=== PATIENT | male | born 1940 | race Caucasian/White ===

== ENCOUNTER → 2016-12-19 | Outpatient (CLI) | payer MEDICARE, OTHER | LOC: RAD 08:46 | PROVIDERS: ATTEND Internal Medicine | DX: C20 Malignant neoplasm of rectum (principal) | CPT/HCPCS: 71260; 74177 ==

== ENCOUNTER 2017-05-11 15:30 | Emergency (ER) | payer MEDICARE, OTHER ==
--- NOTE | 2017-05-11 17:26 | ER Document Report ---
ED GI Bleed / Rectal Pain - General Chief Complaint: Bloody Stools Stated Complaint: CHEST PAIN, WEAKNESS Time Seen by Provider: 05/11/17 17:11 Notes: The patient is a 77-year-old male, past medical history rectal cancer with colostomy, A. fib on Coumadin, diabetes, presents with small amount of blood out of his colostomy bag started 3 days ago. In addition, the patient has had 1 month of substernal chest pain. He has had an extensive workup at [facility] , including a cath and stress test, which did not reveal cardiac etiology to his chest pain. He is scheduled to see a director of rehabilitative services for an EGD. The patient denies lightheadedness, syncope, nausea, vomiting, diarrhea, constipation, back pain or fevers. TRAVEL OUTSIDE OF THE [place] IN LAST 30 DAYS: No - Related Data Allergies/Adverse Reactions: phenobarbital [Phenobarbital] Allergy (Severe, Verified 05/20/13 08:55) Hallucinations topiramate [Topiramate] Allergy (Severe, Verified 05/20/13 08:55) hallucination primidone [Primidone] Allergy (Verified 05/20/13 08:55) hallucination enoxaparin sodium [From Lovenox] Adverse Reaction (Intermediate, Verified 13:56) bleeding Past Medical History - General Information source: Patient - Social History Smoking Status: Unknown if Ever Smoked Family History: Reviewed & Not Pertinent Patient has suicidal ideation: No Patient has homicidal ideation: No - Past Medical History Cardiac Medical History: Reports: Hx Coronary Artery Disease, Hx Hypercholesterolemia, Hx Heart Murmur Denies: Hx Atrial Fibrillation, Hx Congestive Heart Failure, Hx Heart Attack , Hx Hypertension, Hx Peripheral Vascular Disease, Hx Pulmonary Embolism Pulmonary Medical History: Reports: Hx Bronchitis, Hx COPD, Hx Pneumonia - hx of Denies: Hx Asthma, Hx Respiratory Failure, Hx Sleep Apnea, Hx Tuberculosis Neurological Medical History: Reports: 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 Denies: Hx Seizures Endocrine Medical History: Reports: Hx Diabetes Mellitus Type 1, Hx Diabetes Mellitus Type 2, Hx Hyperthyroidism, Hx Hypothyroidism Renal/ Medical History: Denies: Hx Benign Prostatic Hyperplasia, Hx End Stage Renal Disease, Hx Kidney Stones, Hx Peritoneal Dialysis Malignancy Medical History: Reports Hx Colorectal Cancer, Denies Hx Leukemia, Denies Hx Lung Cancer GI Medical History: Reports: Hx Hiatal Hernia, Hx Ulcer. Denies: Hx Crohn's Disease, Hx Gastroesophageal Reflux Disease, Hx Hepatitis, Hx Irritable Bowel, Hx Liver Failure Musculoskeltal Medical History: Reports Hx Arthritis - osteoarthritis, Denies Hx Fibromyalgia, Denies Hx Multiple Sclerosis, Denies Hx Muscular Dystrophy Psychiatric Medical History: Reports: Hx Depression, Hx Post Traumatic Stress Disorder - anxiety Denies: Hx Bipolar Disorder, Hx Dementia, Hx Schizophrenia Traumatic Medical History: Denies: Hx Fractures Infectious Medical History: Denies: Hx Hepatitis, Hx HIV Past Surgical History: Reports: Hx Abdominal Surgery - colostomy, hiatal hernia , Hx Appendectomy, Hx Bowel Surgery - colon resection with iliostomy, Hx Cardiac Catheterization, Hx Coronary Stent - x 3, Hx Herniorrhaphy - hiatal, Hx Tonsillectomy. Denies: Hx Cholecystectomy, Hx Colostomy, Hx Coronary Artery Bypass Graft, Hx Gastric Bypass Surgery, Hx Open Heart Surgery, Hx Pacemaker - Immunizations Hx Diphtheria, Pertussis, Tetanus Vaccination: Yes Hx Pneumococcal Vaccination: 05/03/12 Review of Systems - Review of Systems Notes: REVIEW OF SYSTEMS: CONSTITUTIONAL: -fevers, -chills EENT: -eye pain, -difficulty swallowing, -nasal congestion CARDIOVASCULAR: +chest pain, -syncope. RESPIRATORY: -cough, -SOB GASTROINTESTINAL: -abdominal pain, -nausea, -vomiting, -diarrhea, +blood in colostomy bag GENITOURINARY: -dysuria, -hematuria MUSCULOSKELETAL: -back pain, -neck pain SKIN: -rash or skin lesions. HEMATOLOGIC: -easy bruising or bleeding. LYMPHATIC: -swollen, enlarged glands. NEUROLOGICAL: -altered mental status or loss of consciousness, -headache, - neurologic symptoms PSYCHIATRIC: -anxiety, -depression. ALL OTHER SYSTEMS REVIEWED AND NEGATIVE. Physical Exam - Vital signs Vitals: Temp Pulse Resp BP Pulse Ox 98.1 F 103 H 16 132/79 H 100 05/11/17 15:46 05/11/17 15:46 05/11/17 15:46 05/11/17 15:46 05/11/17 15:46 - Notes Notes: PHYSICAL EXAMINATION: GENERAL: Well-appearing, well-nourished and in no acute distress. HEAD: Atraumatic, normocephalic. EYES: Pupils equal round and reactive to light, extraocular movements intact, sclera anicteric, conjunctiva are normal. ENT: nares patent, oropharynx clear without exudates. Moist mucous membranes. NECK: Normal range of motion, supple without lymphadenopathy LUNGS: Breath sounds clear to auscultation bilaterally and equal. No wheezes rales or rhonchi. HEART: Regular rate and rhythm without murmurs ABDOMEN: Colostomy bag with brown stool. Soft, nontender, normoactive bowel sounds. No guarding, no rebound. No masses appreciated. EXTREMITIES: Normal range of motion, no pitting or edema. No cyanosis. NEUROLOGICAL: Cranial nerves grossly intact. Normal speech, normal gait. Normal sensory and motor exams. PSYCH: Normal mood, normal affect. SKIN: Warm, Dry, normal turgor, no rashes or lesions noted. Course - Re-evaluation Re-evalutation: Patient does not have any blood in his colostomy bag at this time. His INR is 3.97, so instructed him to hold his Coumadin for the next 2 days until he sees his primary care physician this week. He also has a GI appointment in 2 days for an EGD and colonoscopy. He does not require a blood transfusion at this time and his vital signs are stable. Patient's chest pain is chronic in nature for the past month and has had a stress test and heart cath at [facility] that he says was negative. EKG and troponin did not show any evidence of ACS at this time. Offered patient admission for further evaluation and treatment, but he declines at this time and says that he will follow-up with his primary care physician and GI doctor this week. Given strict return precautions and he understands. - Vital Signs Vital signs: Temp Pulse Resp BP Pulse Ox 98.1 F 103 H 24 H 132/79 H 100 05/11/17 15:46 05/11/17 15:46 05/11/17 17:49 05/11/17 15:46 05/11/17 15:46 - Laboratory Result Diagrams: 05/11/17 17:45 05/11/17 17:45 Laboratory results interpreted by me: 05/11/17 05/11/17 05/11/17 17:45 17:45 17:45 RBC 2.83 L Hgb 8.5 L Hct 24.9 L PT 40.5 H APTT 110.5 H BUN 23 H Glucose 193 H Creatine Kinase 53 L NT-Pro-B Natriuret Pep 05/11/17 17:45 RBC Hgb Hct PT APTT BUN Glucose Creatine Kinase NT-Pro-B Natriuret Pep 1090 H - EKG Interpretation by Me EKG shows normal: Sinus rhythm Rate: Normal [place]/QRS: RBBB, LPHB/LPFB Discharge - Discharge Clinical Impression: Elevated INR GI bleed Qualifiers: GI bleed type/associated pathology: unspecified gastrointestinal hemorrhage type Qualified Code(s): K92.2 - Gastrointestinal hemorrhage, unspecified Chest pain Qualifiers: Chest pain type: unspecified Qualified Code(s): R07.9 - Chest pain, unspecified Condition: Stable Disposition: HOME, SELF-CARE Additional Instructions: Do not take your Coumadin tonight or tomorrow because your INR is slightly elevated today. You must follow-up with your primary care physician and GI doctor as already scheduled this week. Return immediately to the ER if you notice any worsening bleeding into her colostomy bag or you have any other concerns. CHEST PAIN OF UNCLEAR CAUSE: The exact cause of your chest pain isn't clear. Fortunately, there is no evidence of a dangerous medical condition. Further testing may be required to find the source of the pain. Most often, we find that this pain is coming from the chest wall -- the muscles or rib joints in the chest. But chest pain can come from the lung and lung lining, the esophagus, the heart valves or heart lining, and even the stomach or gallbladder. Rest. Eat lightly until the pain is gone. We may prescribe medicine for pain and inflammation. You should call the physician immediately if the pain radiates to the shoulder, jaw or arms; if you start to run a fever or develop a cough; or if you develop shortness of breath, or other new or alarming symptoms. NORMAL EXAM AND WORKUP: At this time, your examination and workup show no significant abnormality. No significant abnormal physical findings were noted. All laboratory, EKG, and imaging (x-ray, CT scans, ultrasound) studies that were ordered show no significant abnormality. Although your examination and all studies that were ordered showed no significant abnormal finding, there are no examinations and no studies that are 100% accurate. There is always the possibility that some abnormality could exist and not be detected with physical examination or within the limits and capabilities of laboratory and other studies. You should return or follow up as you were instructed on your visit today for further evaluation if your symptoms do not resolve. ACID REFLUX DISEASE (GERD): Gastro-Esophageal Reflux Disease (GERD) is caused by stomach acid refluxing back up into the esophagus. The valve at the end of the esophagus may be weak. This is common in persons with a hiatal hernia. GERD symptoms can include indigestion, chest pain, heartburn, or food "sticking." Certain foods, alcohol, and aspirin can make GERD worse. Treatment depends on the severity. Usually, antacids or acid-suppressing medicines are used. When the esophagus is acutely inflamed, the physician will often prescribe membrane-protective drugs such as Carafate. Some patients benefit from medication such as Reglan that tightens the valve at the top of the stomach. Avoid those foods that bring on your symptoms. For many people, these foods are coffee, chocolate, onions, garlic, and carbonated drinks. Don't use alcohol, aspirin, caffeine, or tobacco. Don't eat late at night -- within 4 hours of bedtime. Don't over-eat. If necessary, elevate the head of your bed about 4 inches so that stomach acid will not roll up into your esophagus. Call the doctor if you develop severe chest pain, inability to swallow fluids, fever, or worsening symptoms. PRILOSEC (ACID PUMP INHIBITOR): Prilosec (omeprazole) is an acid-pump inhibitor. It blocks the secretion of hydrogen ions in the acid-producing cells of the stomach. Prilosec keeps your stomach from making acid. Take all medication as prescribed, even after the pain is gone. Regular antacids may be added as needed if you have symptoms while taking this medicine. There are usually no side effects from this medication. Contact your doctor if there is fever, rash, yellow skin color, increasing abdominal pain, weakness, or unusual bruising. Return at once if you develop lightheadedness, black or bloody stool, or bloody vomitus. ORAL NARCOTIC MEDICATION: You have been given a prescription for pain control. This medication is a narcotic. It's best taken with food, as nausea can result if taken on an empty stomach. Don't operate machinery or drive within six hours of taking this medication. Do not combine this medicine with alcohol, or with any medication which can cause sedation (such as cold tablets or sleeping pills) unless you get permission from the physician. Narcotics tend to cause constipation. If possible, drink plenty of fluids and eat a diet high in fiber and fruits. Please be aware that prescription narcotics also have the potential for abuse. People become addicted to these medications because of the general sense of wellbeing that they induce. This feeling along with a significant reduction in tension, anxiety, and aggression provides a stimulating seductive quality to these drugs. Once your pain is under control, we encourage you to discard your unused narcotics. FOLLOW-UP CARE: If you have been referred to a physician for follow-up care, call the physician s office for an appointment as you were instructed or within the next two days. If you experience worsening or a significant change in your symptoms, notify the physician immediately or return to the Emergency Department at any time for re-evaluation. Prescriptions: Pantoprazole Sodium 20 mg PO BID 10 Days tablet.dr Referrals: REGIS BALTAZAR MD [ACTIVE STAFF] - Follow up as needed
--- NOTE | 2017-05-11 17:37 | RADIOLOGY REPORT (SQ) ---
EXAM DESCRIPTION: CHEST SINGLE VIEW COMPLETED DATE/TIME: 05/11/2017 5:27 pm REASON FOR STUDY: chest pain COMPARISON: 06/05/2015 NUMBER OF VIEWS: One view. TECHNIQUE: Single frontal radiographic view of the chest acquired. LIMITATIONS: None. FINDINGS: LUNGS AND PLEURA: No opacities, masses or pneumothorax. No pleural effusion. Attenuated bl ood vessels and flattened tserign-diaphragms. MEDIASTINUM AND HILAR STRUCTURES: No masses. Contour normal. HEART AND VASCULAR STRUCTURES: Heart normal in size. Normal vasculature. BONES: No acute findings. HARDWARE: None in the chest. OTHER: No other significant finding. IMPRESSION: COPD. NO ACUTE RADIOGRAPHIC FINDING IN THE CHEST. TECHNICAL DOCUMENTATION: JOB ID: [id number] [employer]- All Rights Reserved
[2017-05-11 18:06] LABS: ABSOLUTE EOSINOPHILS # (AUTO) 0.2 10^3/uL (0.0-0.6); ABSOLUTE LYMPHOCYTES (AUTO) 1.6 10^3/uL (0.5-4.7); ABSOLUTE MONOCYTES (AUTO) 0.5 10^3/uL (0.1-1.4); ABSOLUTE NEUT (AUTO) 3.7 10^3/uL (1.7-8.2); BASOPHILS % (AUTO) 0.8 % (0-2); EOSINOPHILS % (AUTO) 2.8 % (0-6); HEMATOCRIT 24.9 % (37.9-51.0); HEMOGLOBIN 8.5 g/dL (13.5-17.0); HGB HCT DIFFERENCE 0.6; MEAN CORPUSCULAR HGB CONC 34.1 g/dL (32.0-36.0); MEAN CORPUSCULAR VOLUME 88 fl (80-97); MONOCYTES % (AUTO) 8.5 % (3-13); RED BLOOD COUNT 2.83 10^6/uL (4.35-5.55); RED CELL DISTRIBUTION WIDTH 13.6 % (11.5-14.0); SEGMENTED NEUTROPHILS % (AUTO) 60.9 % (42-78)
[2017-05-11 18:15] LABS: PROTHROMBIN TIME 40.5 SEC (11.4-15.4)
[2017-05-11 18:17] LABS: PARTIAL THROMBOPLASTIN TIME 110.5 SEC (23.5-35.8)
--- NOTE | 2017-05-11 18:19 | EKG REPORT ---
SEVERITY:- ABNORMAL ECG - SINUS RHYTHM ATRIAL PREMATURE COMPLEX RBBB AND LPFB BORDERLINE INFERIOR Q WAVES : Confirmed by: Palmer Kincaid MD 11-May-2017 18:17:33
[2017-05-11 18:23] LABS: VENOUS BLOOD BASE EXCESS -0.7 mmol/L; VENOUS BLOOD PCO2 50.6 mmHg (35-63); VENOUS BLOOD PH 7.33 (7.30-7.42)
[2017-05-11 18:24] LABS: ALANINE AMINOTRANSFERASE 26 U/L (21-72); ALBUMIN 4.1 g/dL (3.5-5.0); ALKALINE PHOSPHATASE 117 U/L (38-126); ANION GAP 14 (5-19); ASPARTATE AMINO TRANSFERASE 18 U/L (17-59); BILIRUBIN,DIRECT 0.2 mg/dL (0.0-0.4); BILIRUBIN,TOTAL 0.2 mg/dL (0.2-1.3); BLOOD UREA NITROGEN 23 mg/dL (7-20); CALCIUM 9.4 mg/dL (8.4-10.2); CARBON DIOXIDE 25 mmol/L (22-30); CHLORIDE 98 mmol/L (98-107); CREATINE KINASE 53 U/L (55-170); CREATININE RESULT 0.83 mg/dL (0.52-1.25); GLUCOSE 193 mg/dL (75-110); LIPASE 27.3 U/L (23-300); POTASSIUM 4.5 mmol/L (3.6-5.0); SODIUM 137.2 mmol/L (137-145); TOTAL PROTEIN 7.4 g/dL (6.3-8.2)
[2017-05-11 18:35] LABS: TROPONIN I 0.024 ng/mL
[2017-05-11] MEDS ORDERED: HYDROCODONE/ACETAMINOPHEN 5-325 MG TABLET PO ONE (19:21)
[2017-05-11 20:23] VITALS: BP 170/72
== END 2017-05-11 20:05 | disposition home or self-care (01) ==
LOC: ER 15:30
DX: K92.2 Gastrointestinal hemorrhage, unspecified (principal); R07.9 Chest pain, unspecified; I48.91 Unspecified atrial fibrillation; R19.5 Other fecal abnormalities; R53.1 Weakness
CPT/HCPCS: 93005; 99285; 36415; 82550; 83690; 85025; 85610; 85730; 80053; 84484; 82803; 83605; 83880; 71010; 93010; A9270

== ENCOUNTER 2017-05-13 16:50 | Outpatient (CLI) | payer MEDICARE, OTHER ==
[~2017-05-13 16:50] MED LIST: ACETAMINOPHEN 325 MG TABLET PO PRN; DIPHENHYDRAMINE HCL 25 MG CAPSULE PO PRN; FUROSEMIDE INJ/PF 20 MG/2 ML SDV IV PRN
[2017-05-13] MEDS ORDERED: NORMAL SALINE 250 ML IV PRN (18:28)
[2017-05-13] MEDS ORDERED: DEXTROSE 40% GEL 15 GM TUBE PO PRN (18:30)
[2017-05-13] MEDS ORDERED: DEXTROSE 50%-WATER SYRINGE 12.5 GM/25 ML DOSE IV PRN (18:30)
[2017-05-13] MEDS ORDERED: DEXTROSE 50%-WATER SYRINGE 25 GM/50 ML DOSE IV PRN (18:30)
[2017-05-13] MEDS ORDERED: GLUCAGON,HUMAN RECOMB 1 MG INJ IM PRN (18:30)
[2017-05-13] MEDS ORDERED: DEXTROSE 40% GEL 15 GM TUBE X 2 PO PRN (18:30)
[2017-05-13] MEDS ORDERED: INSULIN REG, HUMAN 100 UNIT/ML 3 ML VIAL (PYX) SUBCUT PRN (18:30)
[2017-05-13 19:13] LABS: HEMATOCRIT 23.2 % (37.9-51.0); MEAN CORPUSCULAR HEMOGLOBIN 29.4 pg (27.0-33.4); MEAN CORPUSCULAR HGB CONC 32.6 g/dL (32.0-36.0); MEAN CORPUSCULAR VOLUME 90 fl (80-97); PLATELET COUNT 535 10^3/uL (150-450); RED BLOOD COUNT 2.57 10^6/uL (4.35-5.55); RED CELL DISTRIBUTION WIDTH 14.1 % (11.5-14.0); WHITE BLOOD COUNT 8.5 10^3/uL (4.0-10.5)
[2017-05-13 19:16] LABS: HEMOGLOBIN 7.6 g/dL (13.5-17.0)
[2017-05-13] MEDS ORDERED: INSULIN NPH (ISOPHANE), HUMAN 100 UNIT/ML 3 ML SUBCUT ONE (20:30)
[2017-05-13 22:09] VITALS: BP 121/55
[2017-05-14] MEDS ORDERED: INSULIN NPH (ISOPHANE), HUMAN 100 UNIT/ML 3 ML SUBCUT SCH (17:00)
== END 2017-05-13 22:25 | disposition home or self-care (01) ==
LOC: LAB 16:50 → 2N 16:51 → LAB 22:25
PROVIDERS: ATTEND Internal Medicine
PROC: 30233N1 Transfusion of Nonautologous Red Blood Cells into Peripheral Vein, Percutaneous Approach (ICD-10-PCS; principal; 2017-05-13)
DX: Z76.89 Persons encountering health services in other specified circumstances (principal)
CPT/HCPCS: 86900; 86901; 36415; 36430; 86850; 82962; 86920; P9016; A9270 ×3; J1940; J1815

== ENCOUNTER 2018-04-24 14:52 | Emergency (ER) | payer MEDICARE, OTHER ==
[2018-04-24] MEDS ORDERED: NORMAL SALINE 1000 ML 1,000 ML IV ONE (15:18)
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
[2018-04-24] MEDS ORDERED: ONDANSETRON HCL INJ/PF 4 MG/2 ML SDV IV ONE (15:24)
[2018-04-24 16:01] LABS: ABSOLUTE BASOPHILS # (AUTO) 0.1 10^3/uL (0.0-0.2); ABSOLUTE LYMPHOCYTES (AUTO) 0.6 10^3/uL (0.5-4.7); ABSOLUTE MONOCYTES (AUTO) 0.5 10^3/uL (0.1-1.4); ABSOLUTE NEUT (AUTO) 7.9 10^3/uL (1.7-8.2); BASOPHILS % (AUTO) 0.9 % (0-2); HEMATOCRIT 44.6 % (37.9-51.0); HEMOGLOBIN 14.2 g/dL (13.5-17.0); LYMPHOCYTES % (AUTO) 6.9 % (13-45); MEAN CORPUSCULAR HEMOGLOBIN 30.3 pg (27.0-33.4); MEAN CORPUSCULAR VOLUME 95 fl (80-97); MONOCYTES % (AUTO) 5.6 % (3-13); PLATELET COUNT 426 10^3/uL (150-450); RED CELL DISTRIBUTION WIDTH 15.6 % (11.5-14.0); SEGMENTED NEUTROPHILS % (AUTO) 86.6 % (42-78); TOTAL CELLS COUNTED % (AUTO) 100 %; WHITE BLOOD COUNT 9.1 10^3/uL (4.0-10.5)
[2018-04-24 16:28] LABS: ALANINE AMINOTRANSFERASE 8 U/L (21-72); ALBUMIN 5.4 g/dL (3.5-5.0); ALKALINE PHOSPHATASE 123 U/L (38-126); ASPARTATE AMINO TRANSFERASE 19 U/L (17-59); BILIRUBIN,DIRECT 0.6 mg/dL (0.0-0.4); BILIRUBIN,TOTAL 0.7 mg/dL (0.2-1.3); BLOOD UREA NITROGEN 32 mg/dL (7-20); CALCIUM 9.9 mg/dL (8.4-10.2); CREATINE KINASE 92 U/L (55-170); TOTAL PROTEIN 9.6 g/dL (6.3-8.2)
[2018-04-24 16:33] LABS: CHLORIDE 99 mmol/L (98-107); SODIUM 137.2 mmol/L (137-145)
[2018-04-24 16:40] LABS: CREATINE KINASE MB 3.68 ng/mL (<4.55)
[2018-04-24 16:44] LABS: CARBON DIOXIDE 8 mmol/L (22-30)
[2018-04-24 16:47] LABS: GLUCOSE 453 mg/dL (75-110); POTASSIUM 7.3 mmol/L (3.6-5.0)
[2018-04-24] MEDS ORDERED: INSULIN REG, HUMAN 100 UNIT/ML 3 ML VIAL (PYX) IV ONE (16:48)
[2018-04-24] MEDS ORDERED: DEXTROSE 40% GEL 15 GM TUBE PO PRN ×2 (16:49)
[2018-04-24] MEDS ORDERED: NORMAL SALINE 100 ML with INSULIN REGULAR, HUMAN 100 UNIT IV PRN ×2 (16:49)
[2018-04-24] MEDS ORDERED: GLUCAGON,HUMAN RECOMB 1 MG INJ IM PRN (16:49)
[2018-04-24] MEDS ORDERED: DEXTROSE 50%-WATER 25 GM/50 ML DISP.SYRIN IV PRN ×2 (16:49)
[2018-04-24] MEDS ORDERED: CALCIUM GLUCONATE 1000 MG/10 ML INJ IV ONE ×3 (16:51→19:34)
[2018-04-24 16:53] LABS: TROPONIN I 0.155 ng/mL
[2018-04-24] MEDS ORDERED: DEXTROSE 5%-WATER 1000 ML 1,000 ML with SODIUM BICARBONATE 50 MEQ IV PRN ×2 (16:53)
[2018-04-24] MEDS ORDERED: 1/2 NORMAL SALINE 1,000 ML IV ONE ×2 (17:00→19:35)
[2018-04-24 17:01] LABS: ANION GAP 30 (5-19)
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
[2018-04-24] MEDS ORDERED: SODIUM BICARBONATE 8.4% INJ 50 MEQ/50 ML DISP.SYRIN ONE ×3 (17:13→19:52)
[2018-04-24 17:39] LABS: VENOUS BLOOD BASE EXCESS -25.8 mmol/L; VENOUS BLOOD HCO3 6.7 mmol/L (20-32); VENOUS BLOOD PCO2 35.7 mmHg (35-63)
--- NOTE | 2018-04-24 17:52 | RADIOLOGY REPORT (SQ) ---
EXAM DESCRIPTION: CHEST SINGLE VIEW COMPLETED DATE/TIME: 04/24/2018 5:27 pm REASON FOR STUDY: weakness COMPARISON: 05/11/2017. NUMBER OF VIEWS: One view. TECHNIQUE: Single frontal radiographic view of the chest acquired. LIMITATIONS: None. FINDINGS: LUNGS AND PLEURA: Chronic scarring. No opacities, masses or pneumothorax. No pleural effu adonay. Attenuated blood vessels and flattened tsering-diaphragms. MEDIASTINUM AND HILAR STRUCTURES: No masses. Contour normal. HEART AND VASCULAR STRUCTURES: Heart normal in size. Normal vasculature. BONES: No acute findings. Old rib fractures. HARDWARE: Surgical clips and aortic stent in the upper abdomen. OTHER: No other significant finding. IMPRESSION: COPD. NO ACUTE RADIOGRAPHIC FINDING IN THE CHEST. TECHNICAL DOCUMENTATION: JOB ID: [id number] [employer]- All Rights Reserved Reading location - IP/workstation name: [email or web address]
[2018-04-24 18:07] LABS: VENOUS BLOOD PH 6.89 (7.30-7.42)
[2018-04-24 18:34] LABS: BLOOD UREA NITROGEN 33 mg/dL (7-20); CALCIUM 9.3 mg/dL (8.4-10.2)
--- NOTE | 2018-04-24 18:35 | RADIOLOGY REPORT (SQ) ---
EXAM DESCRIPTION: CT HEAD WITHOUT COMPLETED DATE/TIME: 04/24/2018 6:20 pm REASON FOR STUDY: altered COMPARISON: 05/20/2015. TECHNIQUE: Axial images acquired through the brain without intravenous contrast. Images reviewed wi th bone, brain and subdural windows. Additional sagittal and coronal reconstructions were generated. Images stored on PACS. All CT scanners at this facility use dose modulation, iterative reconstruction, and/or weight based d osing when appropriate to reduce radiation dose to as low as reasonably achievable (ALARA). [facility]: Dose Right [facility]: CareDose [facility]: Dose Right [facility]: Teradose 4D [facility]: [employer] RADIATION DOSE: CT Rad equipment meets quality standard of care and radiation dose reduction techniq ues were employed. CTDIvol: 53.2 mGy. DLP: 964 mGy-cm. mGy. LIMITATIONS: None. FINDINGS: VENTRICLES: Prominent. CEREBRUM: No masses. No hemorrhage. No midline shift. Areas of low density in the white matter mos t likely due to chronic micro-vascular ischemic change. 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 No evidence for acute infarction. CEREBELLUM: No masses. No hemorrhage. No alteration of density. No evidence for acute infarction. EXTRAAXIAL SPACES: Mild age-related involutional change. No fluid collections. No masses. ORBITS AND GLOBE: No intra- or extraconal masses. Normal contour of globe without masses. CALVARIUM: No fracture. PARANASAL SINUSES: No fluid or mucosal thickening. SOFT TISSUES: No mass or hematoma. OTHER: No other significant finding. IMPRESSION: MILD CHRONIC CHANGES OF ATROPHY AND MICROVASCULAR ISCHEMIA. 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 NO ACUTE PROCESS. EVIDENCE OF ACUTE STROKE: NO. TECHNICAL DOCUMENTATION: JOB ID: [id number] Quality ID # [id number]: Final reports with documentation of one or more dose reduction techniques (e.g., Au tomated exposure control, adjustment of the mA and/or kV according to patient size, use of iterative reconstruction technique) 2010 [employer]- All Rights Reserved Reading location - IP/workstation name: [email or web address]
[2018-04-24 18:40] LABS: CHLORIDE 102 mmol/L (98-107)
[2018-04-24 18:52] LABS: CARBON DIOXIDE 8 mmol/L (22-30); GLUCOSE 409 mg/dL (75-110); POTASSIUM 6.7 mmol/L (3.6-5.0)
[2018-04-24] MEDS ORDERED: HEPARIN SODIUM,PORCINE/D5W 25,000 UNIT/250 ML RTUINJ IV PRN (18:53)
[2018-04-24 18:57] LABS: APPEARANCE,URINE CLEAR; BILIRUBIN,URINE NEGATIVE (NEGATIVE); COLOR,URINE STRAW; GLUCOSE, URINE >=500 mg/dL (NEGATIVE); KETONES,URINE 80 mg/dL (NEGATIVE); LEUKOCYTE ESTERASE,URINE NEGATIVE (NEGATIVE); NITRITE,URINE NEGATIVE (NEGATIVE); PROTEIN,URINE NEGATIVE (NEGATIVE); URINE SPECIFIC GRAVITY 1.013; UROBILINOGEN,URINE NEGATIVE mg/dL (<2.0)
[2018-04-24] MEDS ORDERED: CEFTRIAXONE 2 GM/D5W RTU 2 GM/50 ML RTUPB IV ONE (18:57)
[2018-04-24 19:01] LABS: ANION GAP 27 (5-19)
[2018-04-24 19:02] LABS: ABSOLUTE BASOPHILS # (AUTO) 0.1 10^3/uL (0.0-0.2); ABSOLUTE LYMPHOCYTES (AUTO) 0.8 10^3/uL (0.5-4.7); ABSOLUTE MONOCYTES (AUTO) 0.9 10^3/uL (0.1-1.4); ABSOLUTE NEUT (AUTO) 9.2 10^3/uL (1.7-8.2); BASOPHILS % (AUTO) 0.5 % (0-2); HEMATOCRIT 41.7 % (37.9-51.0); HEMOGLOBIN 13.1 g/dL (13.5-17.0); LYMPHOCYTES % (AUTO) 7.1 % (13-45); MEAN CORPUSCULAR HGB CONC 31.5 g/dL (32.0-36.0); MEAN CORPUSCULAR VOLUME 95 fl (80-97); MONOCYTES % (AUTO) 8.5 % (3-13); PLATELET COUNT 380 10^3/uL (150-450); RED BLOOD COUNT 4.38 10^6/uL (4.35-5.55); RED CELL DISTRIBUTION WIDTH 15.9 % (11.5-14.0); SEGMENTED NEUTROPHILS % (AUTO) 83.9 % (42-78); TOTAL CELLS COUNTED % (AUTO) 100 %
[2018-04-24 19:03] LABS: INTERNATIONAL RATION (INR) 1.22; PARTIAL THROMBOPLASTIN TIME 26.6 SEC (23.5-35.8)
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
--- NOTE | 2018-04-24 20:05 | EKG REPORT ---
SEVERITY:- ABNORMAL ECG - SINUS RHYTHM ATRIAL PREMATURE COMPLEX NONSPECIFIC INTRAVENTRICULAR CONDUCTION DELAY ANTERIOR INFARCT, ACUTE : Confirmed by: Karina Dale MD 24-Apr-2018 20:05:28
[2018-04-24] MEDS ORDERED: CEFTRIAXONE INJ 1000 MG VIAL ONE (20:07)
[2018-04-24] MEDS ORDERED: DEXTROSE 5%-WATER 1000 ML 1,000 ML IV ONE (20:31)
[2018-04-24 21:35] VITALS: BP 131/86
--- NOTE | 2018-04-25 09:57 | XCELERA REPORT ---
[address] [address] Transthoracic Echocardiogram Report Name: JOHN MARIE Age: 78 yrs Gender: Male : 1940 Patient Status: Emergency Patient Location: ER Study Date: 04/24/2018 06:50 PM Height: 67 in Weight: 117 lb BSA: 1.6 m2 Procedure: A complete two-dimensional transthoracic echocardiogram was performed (2D, M-mode, spectral and color flow Doppler). The study was technically difficult with many images being suboptimal in quality. Reason For Study: ECG changes Ordering Physician: MO TANNER Performed By: Michele Tatum Interpretation Summary Left ventricular systolic function is severely reduced. The Ejection Fraction estimate is 25-30% The left ventricle is grossly normal size. There is normal left ventricular wall thickness. Doppler measurements suggest pseudonormalized left ventricular relaxation, which is associated with grade II/IV or mild to moderate diastolic dysfunction There is apical wall akinesis There is anterior wall akinesis The right ventricle is grossly normal size. The right ventricular systolic function is normal. The right atrium is normal in size The left atrium is mildly dilated. There is a trace amount of mitral regurgitation There is no mitral valve stenosis. There is no aortic valve stenosis There is a trace to mild amount of aortic regurgitation There is a mild amount of tricuspid regurgitation There is mild pulmonary hypertension by echo Right ventricular systolic pressure is estimated to be elevated at 30-40mmHg. There is no pericardial effusion. MMode/2D Measurements & Calculations RVDd: 2.0 cm LVIDd: 4.8 cm FS: 29.9 % Ao root diam: 3.0 cm IVSd: 0.76 cm LVIDs: 3.3 cm EDV(Teich): 106.3 ml Ao root area: 6.8 cm2 LVPWd: 0.80 cm ESV(Teich): 45.7 ml LA dimension: 3.3 cm EF(Teich): 57.0 % LVOT diam: 1.8 cm LVOT area: 2.5 cm2 Doppler Measurements & Calculations MV E max koki: MV P1/2t max koki: Ao V2 max: AI max koki: 69.6 cm/sec 64.8 cm/sec 157.2 cm/sec 340.8 cm/sec MV A max koki: MV P1/2t: 96.0 msec Ao max PG: AI max P.5 mmHg 101.7 cm/sec MVA(P1/2t): 2.3 cm2 9.9 mmHg AI dec slope: MV E/A: 0.68 MV dec slope: JACQUI(V,D): 2.1 cm2 283.8 cm/sec2 AI P1/2t: 351.7 msec 197.6 cm/sec2 MV dec time: 0.26 sec LV V1 max PG: PA V2 max: TR max koki: AV P1/2t-pr_phl: 7.1 mmHg 140.5 cm/sec 295.7 cm/sec 351.7 msec LV V1 max: PA max P.9 mmHg TR max P.8 cm/sec 35.0 mmHg LV dP/dt: 2272 mmHg/s MV P1/2t-pr_phl: 96.0 msec Left Ventricle The left ventricle is grossly normal size. There is normal left ventricular wall thickness. Left ventricular systolic function is severely reduced. The Ejection Fraction estimate is 25-30%. Doppler measurements suggest pseudonormalized left ventricular relaxation, which is associated with grade II/IV or mild to moderate diastolic dysfunction. There is apical wall akinesis. There is anterior wall akinesis. Right Ventricle The right ventricle is grossly normal size. The right ventricular systolic function is normal. Atria The right atrium is normal in size. The left atrium is mildly dilated. Interarterial septum not well visualized and not well dopplered. Cannot comment on ASD/PFO presence. Mitral Valve The mitral valve leaflets are sclerotic, but show no functional abnormalities. There is mild mitral annular calcification. There is no mitral valve stenosis. There is a trace amount of mitral regurgitation. Aortic Valve The aortic valve is moderately calcified. There is no aortic valve stenosis. There is a trace to mild amount of aortic regurgitation. Tricuspid Valve The tricuspid valve is not well visualized, but is grossly normal. There is no tricuspid stenosis. There is a mild amount of tricuspid regurgitation. There is mild pulmonary hypertension by echo. Right ventricular systolic pressure is estimated to be elevated at 30-40mmHg. Pulmonic Valve The pulmonic valve is not well visualized. Great Vessels The aortic root is not well visualized. The inferior vena cava appeared normal and decreased > 50% with respiration (RAP 5-10 mmHg). Effusions There is no pericardial effusion. : MO TANNER > Jc Rankin
== END 2018-04-24 21:26 | disposition short-term general hospital (02) ==
LOC: ER 14:52
DX: E11.10 Type 2 diabetes mellitus with ketoacidosis without coma (principal); I21.9 Acute myocardial infarction, unspecified; E87.5 Hyperkalemia; I10 Essential (primary) hypertension; I48.91 Unspecified atrial fibrillation; Z79.01 Long term (current) use of anticoagulants
CPT/HCPCS: 93005; 36415; 82553; 82962; 82550; 83735; 85025; 85610; 85730; 80048; 80053; 81001; 84484; 82803; 93306; 71045; 70450; 93010; J1644; J0610; A9270; J3490; J0696; J2405; J1815

== ENCOUNTER 2018-06-12 14:51 | Emergency (ER) | payer MEDICARE, OTHER ==
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
[2018-06-12] MEDS ORDERED: ONDANSETRON HCL INJ/PF 4 MG/2 ML SDV IV ONE (15:58)
[2018-06-12] MEDS ORDERED: NORMAL SALINE 1000 ML 1,000 ML IV ONE (15:58)
--- NOTE | 2018-06-12 15:59 | ER Document Report ---
ED General - General Chief Complaint: Weakness Stated Complaint: WEAKNESS Time Seen by Provider: 06/12/18 15:21 Notes: Patient is a 78-year-old male with ileostomy that presents to the emergency department for chief complaint of weakness, and nausea. Patient states his been having these symptoms over the last 7 days, he has had a slight cough as well, is been nauseated but not had any vomiting. He does have a history of ileostomy from colon cancer, and states he has a hard time staying hydrated. He was seen at a clinic 3 days ago, and states he was given IV fluids which did help him and he was feeling much better. However he still had nausea, and has not been keeping up with his hydration since then, and is now feeling weak again. He denies noting any fevers, chills, night sweats, dysuria, hematuria, chest pain, shortness of breath or difficulty breathing. Past Medical History: Diabetes mellitus, hypertension, CAD, colon cancer status post resection Past Surgical History: Ileostomy, PCI with stenting Social History: Admits to smoking cigarettes daily, denies alcohol or drug use. Family History: Reviewed and noncontributory for presenting illness Allergies: Reviewed, see documented allergy list. REVIEW OF SYSTEMS: Other than noted above, the 12 point review of systems was reviewed with the patient and were negative, all pertinent findings are included in the HPI. PHYSICAL EXAMINATION: Vital signs reviewed, nursing noted reviewed. GENERAL: Well-appearing, well-nourished and in no acute distress. HEAD: Atraumatic, normocephalic. EYES: Eyes appear normal, extraocular movements intact, sclera anicteric, conjunctiva are normal. ENT: nares patent, oropharynx clear without exudates. Moist mucous membranes. NECK: Normal range of motion, supple without lymphadenopathy LUNGS: Breath sounds clear to auscultation bilaterally and equal. No wheezes rales or rhonchi. HEART: Regular rate and rhythm without murmurs ABDOMEN: Soft, nontender, normoactive bowel sounds. No rebound, guarding, or rigidity. No masses appreciated. Ileostomy present, liquid stool present. EXTREMITIES: Nontender, good range of motion, no pitting or edema. NEUROLOGICAL: No focal neurological deficits. Moves all extremities spontaneously Motor and sensory grossly intact on exam. PSYCH: Normal mood, normal affect. SKIN: Warm, Dry, normal turgor, no rashes or lesions noted on exposed skin TRAVEL OUTSIDE OF THE [place] IN LAST 30 DAYS: No - Related Data Allergies/Adverse Reactions: phenobarbital [Phenobarbital] Allergy (Severe, Verified 06/12/18 14:52) Hallucinations topiramate [Topiramate] Allergy (Severe, Verified 06/12/18 14:52) hallucination primidone [Primidone] Allergy (Verified 06/12/18 14:52) hallucination enoxaparin sodium [From Lovenox] Adverse Reaction (Intermediate, Verified 14:52) bleeding Past Medical History - Social History Smoking Status: Unknown if Ever Smoked Family History: Hyperlipidemia Patient has suicidal ideation: No Patient has homicidal ideation: No - Past Medical History Cardiac Medical History: Reports: Hx Coronary Artery Disease, Hx Hypercholesterolemia, Hx Heart Murmur Denies: Hx Atrial Fibrillation, Hx Congestive Heart Failure, Hx Heart Attack , Hx Hypertension, Hx Peripheral Vascular Disease, Hx Pulmonary Embolism Pulmonary Medical History: Reports: Hx Bronchitis, Hx COPD, Hx Pneumonia - hx of Denies: Hx Asthma, Hx Respiratory Failure, Hx Sleep Apnea, Hx Tuberculosis Neurological Medical History: Reports: 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 Denies: Hx Seizures Endocrine Medical History: Reports: Hx Diabetes Mellitus Type 1, Hx Diabetes Mellitus Type 2, Hx Hyperthyroidism, Hx Hypothyroidism Renal/ Medical History: Denies: Hx Benign Prostatic Hyperplasia, Hx End Stage Renal Disease, Hx Kidney Stones, Hx Peritoneal Dialysis Malignancy Medical History: Reports Hx Colorectal Cancer, Denies Hx Leukemia, Denies Hx Lung Cancer GI Medical History: Reports: Hx Hiatal Hernia, Hx Ulcer. Denies: Hx Crohn's Disease, Hx Gastroesophageal Reflux Disease, Hx Hepatitis, Hx Irritable Bowel, Hx Liver Failure, Hx Pancreatitis Musculoskeletal Medical History: Reports Hx Arthritis - osteoarthritis, Denies Hx Fibromyalgia, Denies Hx Multiple Sclerosis, Denies Hx Muscular Dystrophy Psychiatric Medical History: Reports: Hx Depression, Hx Post Traumatic Stress Disorder - anxiety Denies: Hx Bipolar Disorder, Hx Dementia, Hx Schizophrenia Traumatic Medical History: Denies: Hx Fractures Infectious Medical History: Denies: Hx Hepatitis, Hx HIV Past Surgical History: Reports: Hx Abdominal Surgery - colostomy, hiatal hernia , Hx Appendectomy, Hx Bowel Surgery - colon resection with iliostomy, Hx Cardiac Catheterization, Hx Coronary Stent - x 3, Hx Herniorrhaphy - hiatal, Hx Tonsillectomy. Denies: Hx Cholecystectomy, Hx Colostomy, Hx Coronary Artery Bypass Graft, Hx Gastric Bypass Surgery, Hx Open Heart Surgery, Hx Pacemaker - Immunizations Hx Diphtheria, Pertussis, Tetanus Vaccination: Yes Hx Pneumococcal Vaccination: 05/03/12 Physical Exam - Vital signs Vitals: Temp Pulse Resp BP Pulse Ox 98.3 F 65 14 152/67 H 100 06/12/18 14:55 06/12/18 14:55 06/12/18 14:55 06/12/18 14:55 06/12/18 14:55 Course - Re-evaluation Re-evalutation: Patient seen and examined vital signs reviewed. Laboratory data and imaging were ordered as appropriate for the patient's presenting symptoms and complaint, with consideration of any critical or life threatening conditions that may be associated with their obtained history and exam as noted above. Patient was treated with IV fluids and Zofran Results were reviewed when available and demonstrated normal CBC, he did have prerenal azotemia, was given IV fluids to treat this, likely dehydration, from lack of oral intake, and ileostomy. He also did have slight elevation in troponin of 0.055, upon further review the patient's chart, there is a history of elevated troponins, this is actually less than his baseline. Patient is not having any chest pain, I do not have concern for ACS in this patient. His VBG demonstrated a respiratory acidosis, patient is a smoker and has COPD, this is likely chronic for him. Patient denied having any lightheadedness or confusion , shortness of breath or difficulty breathing. The patient was re-evaluated and was improved, he stated overall he is feeling much better after fluids and Zofran. Evaluation was most consistent with dehydration, prerenal azotemia, nausea Results were discussed with the patient at this point, after careful consideration I feel that that patient can be discharged from the emergency department, the patient was educated treatments and reasons to return to the emergency department based on their presumed diagnosis as noted above, they were advised to followup with a primary care physician in 2-3 days. Patient was agreeable to plan of care. *Note is created using voice recognition software and may contain spelling, syntax or grammatical errors. Laboratory 06/12/18 06/12/18 06/12/18 15:36 15:38 15:38 WBC 7.2 RBC 4.93 Hgb 14.8 Hct 44.9 MCV 91 MCH 30.0 MCHC 33.0 RDW 15.0 H Plt Count 328 Seg Neutrophils % 54.2 Lymphocytes % 32.8 Monocytes % 9.3 Eosinophils % 2.4 Basophils % 1.3 Absolute Neutrophils 3.9 Absolute Lymphocytes 2.3 Absolute Monocytes 0.7 Absolute Eosinophils 0.2 Absolute Basophils 0.1 VBG pH VBG pCO2 VBG HCO3 VBG Base Excess Sodium 139.0 Potassium 5.0 Chloride 101 Carbon Dioxide 23 Anion Gap 15 BUN 48 H Creatinine 1.17 Est GFR ( Amer) > 60 Est GFR (Non-Af Amer) > 60 Glucose 148 H POC Glucose 147 H Lactic Acid Calcium 10.9 H Total Bilirubin 0.4 Direct Bilirubin 0.3 Neonat Total Bilirubin Not Reportable Neonat Direct Bilirubin Not Reportable Neonat Indirect Bili Not Reportable AST 27 ALT 20 L Alkaline Phosphatase 85 Creatine Kinase 62 CK-MB (CK-2) Troponin I Total Protein 8.2 Albumin 4.9 Urine Color Urine Appearance Urine pH Ur Specific [place] Urine Protein Urine Glucose (UA) Urine Ketones Urine Blood Urine Nitrite Urine Bilirubin Urine Urobilinogen Ur Leukocyte Esterase Urine WBC (Auto) Urine RBC (Auto) U Hyaline Cast (Auto) Squamous Epi Cells Auto Urine Mucus (Auto) Urine Ascorbic Acid Blood Type Antibody Screen 06/12/18 06/12/18 06/12/18 15:38 15:38 15:38 WBC RBC Hgb Hct MCV MCH MCHC RDW Plt Count Seg Neutrophils % Lymphocytes % Monocytes % Eosinophils % Basophils % Absolute Neutrophils Absolute Lymphocytes Absolute Monocytes Absolute Eosinophils Absolute Basophils VBG pH VBG pCO2 VBG HCO3 VBG Base Excess Sodium Potassium Chloride Carbon Dioxide Anion Gap BUN Creatinine Est GFR ( Amer) Est GFR (Non-Af Amer) Glucose POC Glucose Lactic Acid 1.7 Calcium Total Bilirubin Direct Bilirubin Neonat Total Bilirubin Neonat Direct Bilirubin Neonat Indirect Bili AST ALT Alkaline Phosphatase Creatine Kinase CK-MB (CK-2) 6.74 H Troponin I 0.055 Total Protein Albumin Urine Color YELLOW Urine Appearance CLEAR Urine pH 5.0 Ur Specific [place] 1.016 Urine Protein NEGATIVE Urine Glucose (UA) >=500 H Urine Ketones 20 H Urine Blood NEGATIVE Urine Nitrite NEGATIVE Urine Bilirubin NEGATIVE Urine Urobilinogen NEGATIVE Ur Leukocyte Esterase NEGATIVE Urine WBC (Auto) 1 Urine RBC (Auto) 0 U Hyaline Cast (Auto) 3 Squamous Epi Cells Auto <1 Urine Mucus (Auto) RARE Urine Ascorbic Acid NEGATIVE Blood Type Antibody Screen 06/12/18 06/12/18 15:38 15:38 WBC RBC Hgb Hct MCV MCH MCHC RDW Plt Count Seg Neutrophils % Lymphocytes % Monocytes % Eosinophils % Basophils % Absolute Neutrophils Absolute Lymphocytes Absolute Monocytes Absolute Eosinophils Absolute Basophils VBG pH 7.28 L VBG pCO2 52.5 VBG HCO3 24.1 VBG Base Excess -3.4 Sodium Potassium Chloride Carbon Dioxide Anion Gap BUN Creatinine Est GFR ( Amer) Est GFR (Non-Af Amer) Glucose POC Glucose Lactic Acid Calcium Total Bilirubin Direct Bilirubin Neonat Total Bilirubin Neonat Direct Bilirubin Neonat Indirect Bili AST ALT Alkaline Phosphatase Creatine Kinase CK-MB (CK-2) Troponin I Total Protein Albumin Urine Color Urine Appearance Urine pH Ur Specific [place] Urine Protein Urine Glucose (UA) Urine Ketones Urine Blood Urine Nitrite Urine Bilirubin Urine Urobilinogen Ur Leukocyte Esterase Urine WBC (Auto) Urine RBC (Auto) U Hyaline Cast (Auto) Squamous Epi Cells Auto Urine Mucus (Auto) Urine Ascorbic Acid Blood Type O POSITIVE Antibody Screen NEGATIVE Chest X-Ray 06/12/18 16:24 IMPRESSION: No acute cardiopulmonary disease. COPD and scar. - Vital Signs Vital signs: Temp Pulse Resp BP Pulse Ox 97.7 F 66 20 162/86 H 99 06/12/18 18:24 06/12/18 18:24 06/12/18 18:24 06/12/18 18:24 06/12/18 18:24 - Laboratory Result Diagrams: 06/12/18 15:38 06/12/18 15:38 Laboratory results interpreted by me: 06/12/18 06/12/18 06/12/18 15:36 15:38 15:38 RDW 15.0 H VBG pH BUN 48 H Glucose 148 H POC Glucose 147 H Calcium 10.9 H ALT 20 L CK-MB (CK-2) Urine Glucose (UA) Urine Ketones 06/12/18 06/12/18 06/12/18 15:38 15:38 15:38 RDW VBG pH 7.28 L BUN Glucose POC Glucose Calcium ALT CK-MB (CK-2) 6.74 H Urine Glucose (UA) >=500 H Urine Ketones 20 H Discharge - Discharge Clinical Impression: Dehydration, Weakness Condition: Stable Disposition: HOME, SELF-CARE Instructions: Dehydration ([facility]) Additional Instructions: Try to drink as much fluid during the day, try drinking Gatorade G2 for hydration, or other sports drinks. Please return to the emergency department if you have any worsening, or concern of your symptoms. Please return to the emergency department if you develop chest pain, difficulty breathing, severe abdominal pain, or ongoing vomiting. Please follow-up with your primary care physician in 2-3 days and any other recommended physicians. If prescribed, take all medications as directed. If you have any questions or concerns do not hesitate to return the emergency department for evaluation. Prescriptions: Ondansetron [Zofran Odt 4 mg Tablet] 1 tab PO Q8H PRN #15 tab.rapdis PRN Reason: For Nausea/Vomiting Referrals: GREY SHAFER MD [[facility]AFF] - Follow up in 3-5 days (or your primary care. )
[2018-06-12 16:10] LABS: ABSOLUTE BASOPHILS # (AUTO) 0.1 10^3/uL (0.0-0.2); ABSOLUTE EOSINOPHILS # (AUTO) 0.2 10^3/uL (0.0-0.6); ABSOLUTE LYMPHOCYTES (AUTO) 2.3 10^3/uL (0.5-4.7); ABSOLUTE MONOCYTES (AUTO) 0.7 10^3/uL (0.1-1.4); ABSOLUTE NEUT (AUTO) 3.9 10^3/uL (1.7-8.2); BASOPHILS % (AUTO) 1.3 % (0-2); EOSINOPHILS % (AUTO) 2.4 % (0-6); HEMATOCRIT 44.9 % (37.9-51.0); HEMOGLOBIN 14.8 g/dL (13.5-17.0); LYMPHOCYTES % (AUTO) 32.8 % (13-45); MEAN CORPUSCULAR VOLUME 91 fl (80-97); MONOCYTES % (AUTO) 9.3 % (3-13); PLATELET COUNT 328 10^3/uL (150-450); RED BLOOD COUNT 4.93 10^6/uL (4.35-5.55); SEGMENTED NEUTROPHILS % (AUTO) 54.2 % (42-78); TOTAL CELLS COUNTED % (AUTO) 100 %; WHITE BLOOD COUNT 7.2 10^3/uL (4.0-10.5)
[2018-06-12 16:22] LABS: VENOUS BLOOD BASE EXCESS -3.4 mmol/L; VENOUS BLOOD HCO3 24.1 mmol/L (20-32); VENOUS BLOOD PCO2 52.5 mmHg (35-63); VENOUS BLOOD PH 7.28 (7.30-7.42)
[2018-06-12 16:32] LABS: ALANINE AMINOTRANSFERASE 20 U/L (21-72); ALBUMIN 4.9 g/dL (3.5-5.0); ALKALINE PHOSPHATASE 85 U/L (38-126); ANION GAP 15 (5-19); APPEARANCE,URINE CLEAR; ASPARTATE AMINO TRANSFERASE 27 U/L (17-59); BILIRUBIN,DIRECT 0.3 mg/dL (0.0-0.4); BILIRUBIN,TOTAL 0.4 mg/dL (0.2-1.3); BILIRUBIN,URINE NEGATIVE (NEGATIVE); BLOOD UREA NITROGEN 48 mg/dL (7-20); CALCIUM 10.9 mg/dL (8.4-10.2); CARBON DIOXIDE 23 mmol/L (22-30); CHLORIDE 101 mmol/L (98-107); COLOR,URINE YELLOW; CREATINE KINASE 62 U/L (55-170); GLUCOSE 148 mg/dL (75-110); GLUCOSE, URINE >=500 mg/dL (NEGATIVE); KETONES,URINE 20 mg/dL (NEGATIVE); LEUKOCYTE ESTERASE,URINE NEGATIVE (NEGATIVE); NITRITE,URINE NEGATIVE (NEGATIVE); PROTEIN,URINE NEGATIVE (NEGATIVE); TOTAL PROTEIN 8.2 g/dL (6.3-8.2); URINE SPECIFIC GRAVITY 1.016; UROBILINOGEN,URINE NEGATIVE mg/dL (<2.0)
[2018-06-12 16:44] LABS: CREATINE KINASE MB 6.74 ng/mL (<4.55)
[2018-06-12 16:45] LABS: TROPONIN I 0.055 ng/mL
--- NOTE | 2018-06-12 17:14 | RADIOLOGY REPORT (SQ) ---
EXAM DESCRIPTION: CHEST 2 VIEWS COMPLETED DATE/TIME: 06/12/2018 4:46 pm REASON FOR STUDY: cough COMPARISON: 06/05/2015. TECHNIQUE: Frontal and lateral radiographic views of the chest acquired. NUMBER OF VIEWS: Two view. LIMITATIONS: None. FINDINGS: LUNGS AND PLEURA: Hyperinflated but relatively clear. This is allowing for mild areas of scarring, particularly in the apices. MEDIASTINUM AND HILAR STRUCTURES: No masses or contour abnormalities. HEART AND VASCULAR STRUCTURES: Heart normal size. No evidence for failure. BONES: Osteopenic. HARDWARE: None in the chest. OTHER: No other significant finding. IMPRESSION: No acute cardiopulmonary disease. COPD and scar. TECHNICAL DOCUMENTATION: JOB ID: [id number] [employer]- All Rights Reserved Reading location - IP/workstation name: [email or web address]
[2018-06-12 18:27] VITALS: BP 162/86
== END 2018-06-12 18:31 | disposition home or self-care (01) ==
LOC: ER 14:51
DX: E86.0 Dehydration (principal); R53.1 Weakness; R11.0 Nausea; R05 Cough; I25.10 Atherosclerotic heart disease of native coronary artery without angina pectoris; E78.00 Pure hypercholesterolemia, unspecified; J44.9 Chronic obstructive pulmonary disease, unspecified; E11.9 Type 2 diabetes mellitus without complications; E03.9 Hypothyroidism, unspecified; Z85.038 Personal history of other malignant neoplasm of large intestine; Z86.73 Personal history of transient ischemic attack (TIA), and cerebral infarction without residual deficits; Z93.2 Ileostomy status
CPT/HCPCS: 99285; 96361; 96374; 86900; 86901; 36415; 82553; 86850; 82962; 82550; 85025; 80053; 81001; 84484; 82803; 83605; 71046; J2405; J7030

== ENCOUNTER 2018-06-18 15:28 | Emergency (ER) | payer MEDICARE, OTHER ==
--- NOTE | 2018-06-18 16:40 | ER Document Report ---
ED Medical Screen (RME) - General Chief Complaint: Fall Stated Complaint: FALL Time Seen by Provider: 06/18/18 16:37 Notes: 78-year-old male to the emergency department after a fall. States that he passed out. Lost his balance. Thinks that he went to fast from sitting to standing. Fell and hit his head on the left but having pain on the right side of his head. Is concerned because on blood thinners for A. fib. I have greeted and performed a rapid initial assessment of this patient. A comprehensive ED assessment and evaluation of the patient, analysis of test results and completion of the medical decision making process will be conducted by additional ED providers. TRAVEL OUTSIDE OF THE [place] IN LAST 30 DAYS: No - Related Data Allergies/Adverse Reactions: phenobarbital [Phenobarbital] Allergy (Severe, Verified 06/12/18 14:52) Hallucinations topiramate [Topiramate] Allergy (Severe, Verified 06/12/18 14:52) hallucination primidone [Primidone] Allergy (Verified 06/12/18 14:52) hallucination enoxaparin sodium [From Lovenox] Adverse Reaction (Intermediate, Verified 14:52) bleeding Past Medical History - Past Medical History Cardiac Medical History: Reports: Hx Coronary Artery Disease, Hx Hypercholesterolemia, Hx Heart Murmur Denies: Hx Atrial Fibrillation, Hx Congestive Heart Failure, Hx Heart Attack , Hx Hypertension, Hx Peripheral Vascular Disease, Hx Pulmonary Embolism Pulmonary Medical History: Reports: Hx Bronchitis, Hx COPD, Hx Pneumonia - hx of Denies: Hx Asthma, Hx Respiratory Failure, Hx Sleep Apnea, Hx Tuberculosis Neurological Medical History: Reports: 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 Denies: Hx Seizures Endocrine Medical History: Reports: Hx Diabetes Mellitus Type 1, Hx Diabetes Mellitus Type 2, Hx Hyperthyroidism, Hx Hypothyroidism Renal/ Medical History: Denies: Hx Benign Prostatic Hyperplasia, Hx End Stage Renal Disease, Hx Kidney Stones, Hx Peritoneal Dialysis Malignancy Medical History: Reports Hx Colorectal Cancer, Denies Hx Leukemia, Denies Hx Lung Cancer GI Medical History: Reports: Hx Hiatal Hernia, Hx Ulcer. Denies: Hx Crohn's Disease, Hx Gastroesophageal Reflux Disease, Hx Hepatitis, Hx Irritable Bowel, Hx Liver Failure, Hx Pancreatitis Musculoskeltal Medical History: Reports Hx Arthritis - osteoarthritis, Denies Hx Fibromyalgia, Denies Hx Multiple Sclerosis, Denies Hx Muscular Dystrophy Psychiatric Medical History: Reports: Hx Depression, Hx Post Traumatic Stress Disorder - anxiety Denies: Hx Bipolar Disorder, Hx Dementia, Hx Schizophrenia Traumatic Medical History: Denies: Hx Fractures Infectious Medical History: Denies: Hx Hepatitis, Hx HIV Past Surgical History: Reports: Hx Abdominal Surgery - colostomy, hiatal hernia , Hx Appendectomy, Hx Bowel Surgery - colon resection with iliostomy, Hx Cardiac Catheterization, Hx Coronary Stent - x 3, Hx Herniorrhaphy - hiatal, Hx Tonsillectomy. Denies: Hx Cholecystectomy, Hx Colostomy, Hx Coronary Artery Bypass Graft, Hx Gastric Bypass Surgery, Hx Open Heart Surgery, Hx Pacemaker - Immunizations Hx Diphtheria, Pertussis, Tetanus Vaccination: Yes History of Influenza Vaccine for 05/2017 - 10/2017 Season: No Physical Exam - Vital signs Vitals: Temp Pulse Resp BP Pulse Ox 98.3 F 70 16 166/74 H 100 06/18/18 15:45 06/18/18 15:45 06/18/18 15:45 06/18/18 15:45 06/18/18 15:45 Course - Vital Signs Vital signs: Temp Pulse Resp BP Pulse Ox 98.3 F 70 16 166/74 H 100 06/18/18 15:45 06/18/18 15:45 06/18/18 15:45 06/18/18 15:45 06/18/18 15:45
--- NOTE | 2018-06-18 17:49 | RADIOLOGY REPORT (SQ) ---
EXAM DESCRIPTION: CT HEAD WITHOUT COMPLETED DATE/TIME: 06/18/2018 5:33 pm REASON FOR STUDY: fall, on thinners, right sided headache but hit lf COMPARISON: 04/24/2018 TECHNIQUE: Axial images acquired through the brain without intravenous contrast. Images reviewed wi th bone, brain and subdural windows. Additional sagittal and coronal reconstructions were generated. Images stored on PACS. All CT scanners at this facility use dose modulation, iterative reconstruction, and/or weight based d osing when appropriate to reduce radiation dose to as low as reasonably achievable (ALARA). [facility]: Dose Right [facility]: CareDose [facility]: Dose Right [facility]: Teradose 4D [facility]: Smart MOOI RADIATION DOSE: CT Rad equipment meets quality standard of care and radiation dose reduction techniq ues were employed. CTDIvol: 53.2 mGy. DLP: 964 mGy-cm. mGy. LIMITATIONS: None. FINDINGS: VENTRICLES: Normal size and contour. CEREBRUM: Mild cortical atrophy. 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 No masses. No hemorrhage. No midline shift. No evidence for acute infarction. Few scattered areas of low density in the white matter mos t likely chronic small vessel ischemic changes. CEREBELLUM: No masses. No hemorrhage. No alteration of density. No evidence for acute infarction. EXTRAAXIAL SPACES: No fluid collections. No masses. ORBITS AND GLOBE: No intra- or extraconal masses. Normal contour of globe without masses. CALVARIUM: No fracture. PARANASAL SINUSES: No fluid or mucosal thickening. SOFT TISSUES: No mass or hematoma. OTHER: No other significant finding. 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 Involutional changes of aging with chronic microvascular isch emic change. No acute intracranial imaging findings. EVIDENCE OF ACUTE STROKE: NO. COMMENT: Quality ID # [id number]: Final reports with documentation of one or more dose reduction techniques (e.g., Automated exposure control, adjustment of the mA and/or kV according to patient size, use of iterative reconstruction technique) TECHNICAL DOCUMENTATION: JOB ID: [id number] [employer]- All Rights Reserved Reading location - IP/workstation name: [email or web address]
--- NOTE | 2018-06-18 18:43 | ER Document Report ---
ED General - General Chief Complaint: Fall Stated Complaint: FALL Time Seen by Provider: 06/18/18 16:37 Notes: Patient is a 78-year-old male with a past medical history of atrial fibrillation currently anticoagulated on apixaban, frailty with malnutrition, who presents after a fall striking the left side of his head. Patient states that he stood up out of his chair quickly, became lightheaded and fell to the ground. He denies any loss of consciousness. States that since that time he has had a dull, throbbing, constant pain to his right jaw as well as the left side of his head. Nothing improves or worsens that pain. Has a history of lightheadedness when changing positions for many years and states nothing was new or different today. States he has feels much better than when he was he seen here on the . He denies any weakness, numbness, confusion, inability to ambulate, or pain to any other location of his body. He has not seen his primary care doctor regarding today's concerns. TRAVEL OUTSIDE OF THE [place] IN LAST 30 DAYS: No - Related Data Allergies/Adverse Reactions: phenobarbital [Phenobarbital] Allergy (Severe, Verified 06/12/18 14:52) Hallucinations topiramate [Topiramate] Allergy (Severe, Verified 06/12/18 14:52) hallucination primidone [Primidone] Allergy (Verified 06/12/18 14:52) hallucination enoxaparin sodium [From Lovenox] Adverse Reaction (Intermediate, Verified 14:52) bleeding Past Medical History - General Information source: Patient - Social History Smoking Status: Current Every Day Smoker Frequency of alcohol use: None Drug Abuse: None Lives with: Family Family History: Hyperlipidemia Patient has suicidal ideation: No Patient has homicidal ideation: No - Past Medical History Cardiac Medical History: Reports: Hx Coronary Artery Disease, Hx Hypercholesterolemia, Hx Heart Murmur Denies: Hx Atrial Fibrillation, Hx Congestive Heart Failure, Hx Heart Attack , Hx Hypertension, Hx Peripheral Vascular Disease, Hx Pulmonary Embolism Pulmonary Medical History: Reports: Hx Bronchitis, Hx COPD, Hx Pneumonia - hx of Denies: Hx Asthma, Hx Respiratory Failure, Hx Sleep Apnea, Hx Tuberculosis Neurological Medical History: Reports: 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 Denies: Hx Seizures Endocrine Medical History: Reports: Hx Diabetes Mellitus Type 1, Hx Diabetes Mellitus Type 2, Hx Hyperthyroidism, Hx Hypothyroidism Renal/ Medical History: Denies: Hx Benign Prostatic Hyperplasia, Hx End Stage Renal Disease, Hx Kidney Stones, Hx Peritoneal Dialysis Malignancy Medical History: Reports Hx Colorectal Cancer, Denies Hx Leukemia, Denies Hx Lung Cancer GI Medical History: Reports: Hx Hiatal Hernia, Hx Ulcer. Denies: Hx Crohn's Disease, Hx Gastroesophageal Reflux Disease, Hx Hepatitis, Hx Irritable Bowel, Hx Liver Failure, Hx Pancreatitis Musculoskeletal Medical History: Reports Hx Arthritis - osteoarthritis, Denies Hx Fibromyalgia, Denies Hx Multiple Sclerosis, Denies Hx Muscular Dystrophy Psychiatric Medical History: Reports: Hx Depression, Hx Post Traumatic Stress Disorder - anxiety Denies: Hx Bipolar Disorder, Hx Dementia, Hx Schizophrenia Traumatic Medical History: Denies: Hx Fractures Infectious Medical History: Denies: Hx Hepatitis, Hx HIV Past Surgical History: Reports: Hx Abdominal Surgery - colostomy, hiatal hernia , Hx Appendectomy, Hx Bowel Surgery - colon resection with iliostomy, Hx Cardiac Catheterization, Hx Coronary Stent - x 3, Hx Herniorrhaphy - hiatal, Hx Tonsillectomy. Denies: Hx Cholecystectomy, Hx Colostomy, Hx Coronary Artery Bypass Graft, Hx Gastric Bypass Surgery, Hx Open Heart Surgery, Hx Pacemaker - Immunizations Hx Diphtheria, Pertussis, Tetanus Vaccination: Yes Hx Pneumococcal Vaccination: 05/03/12 Review of Systems - Review of Systems Notes: Constitutional: Negative for fever. Eyes: Negative for visual changes. ENT: Negative for facial injury Cardiovascular: Negative for chest injury. Respiratory: Negative for shortness of breath. Gastrointestinal: Negative for abdominal injury. Genitourinary: Negative for genital injury Musculoskeletal: Negative for back injury. Skin: Negative for laceration/abrasions. Neurological: Positive for head injury. Physical Exam - Vital signs Vitals: Temp Pulse Resp BP Pulse Ox 98.3 F 70 16 166/74 H 100 06/18/18 15:45 06/18/18 15:45 06/18/18 15:45 06/18/18 15:45 06/18/18 15:45 Interpretation: Normal Notes: PHYSICAL EXAMINATION: GENERAL: Well-appearing, well-nourished and in no acute distress. HEAD: Atraumatic, normocephalic. EYES: Pupils equal round and reactive to light, extraocular movements intact, sclera anicteric, conjunctiva are normal. ENT: nares patent, oropharynx clear without exudates. Moist mucous membranes. NECK: Normal range of motion, supple without lymphadenopathy LUNGS: Breath sounds clear to auscultation bilaterally and equal. No wheezes rales or rhonchi. HEART: Regular rate and rhythm without murmurs ABDOMEN: Soft, nontender, normoactive bowel sounds. No guarding, no rebound. No masses appreciated. EXTREMITIES: Normal range of motion, no pitting or edema. No cyanosis. NEUROLOGICAL: No focal neurological deficits. Moves all extremities spontaneously and on command. PSYCH: Normal mood, normal affect. SKIN: Warm, Dry, normal turgor, no rashes or lesions noted. Course - Re-evaluation Re-evalutation: 06/18/18 18:41 Presentation of a well appearing elderly patient in no acute distress, vitals within normal limits after a fall when going from a sitting to standing position. Patient contrary to triage assessment clearly denies a syncopal episode. His only complaint is right jaw pain and there is no obvious deformity to the area, mandible x-ray is normal. No focal neurologic deficits on exam, no evidence of basilar skull fracture on exam without evidence of hemotympanum, raccoon eyes, or periauricular hematoma. No papilledema. Patient is not on anticoagulation. GCS is 15. No loss of consciousness. No episodes of vomiting. However, based on patient's age a CT of the head has been obtained which is negative for any acute intracranial bleed. Likewise, patient was unable to be clinically cleared due to age by [facility] cervical spine criteria. A CT of the cervical spine was also obtained and likewise is negative for any acute fracture. No indication for further imaging of the cervical spine. Patient has no focal deformities or limited range of motion in any joint space. Chest and abdominal exam are benign without any focal tenderness, shortness of breath, or bruising over the chest or abdominal wall. Patient has no flank tenderness. Labs are sent from triage which are noted to show mild hyperkalemia likely due to the patient's significant hyperglycemia. He admits to medication noncompliance today. He has been given a dose of insulin and IV fluids to address both the hyperkalemia as well as the hyperglycemia. No evidence of diabetic ketoacidosis or HHS. His troponin is in the indeterminate range although this is lower than it has been all year and I do not believe it is related to today's events. There is no obvious findings on trauma exam today and therefore no further imaging or evaluation will be obtained at this time. At this time will discharge with return precautions and follow-up recommendations. Verbal discharge instructions given a the bedside and opportunity for questions given. Medication warnings reviewed. Patient is in agreement with this plan and has verbalized understanding of return precautions and the need for primary care follow-up in the next 24-72 hours. - Vital Signs Vital signs: Temp Pulse Resp BP Pulse Ox 98.3 F 70 16 166/74 H 100 06/18/18 15:45 06/18/18 15:45 06/18/18 15:45 06/18/18 15:45 06/18/18 15:45 - Laboratory Result Diagrams: 06/18/18 18:31 06/18/18 18:31 Laboratory results interpreted by me: 06/18/18 06/18/18 18:31 18:31 RDW 14.8 H Sodium 133.7 L Potassium 5.8 H Chloride 94 L BUN 23 H Glucose 458 H* Calcium 10.8 H Direct Bilirubin 0.5 H - Diagnostic Test Radiology reviewed: Image reviewed, Reports reviewed Discharge - Discharge Clinical Impression: Orthostasis, Jaw pain, Hyperglycemia, Hyperkalemia Head trauma Qualifiers: Encounter type: initial encounter Qualified Code(s): S09.90XA - Unspecified injury of head, initial encounter Condition: Good Disposition: HOME, SELF-CARE Additional Instructions: You have likely sustained a contusion (bruise) to your head. If you had a CT scan done, it did not show any evidence of serious injury or bleeding. Symptoms to expect from a concussion include nausea, mild to moderate headache, difficulty concentrating or sleeping, and mild lightheadedness. These symptoms should improve over the next few days to weeks. Return to the emergency department or follow-up with your primary care doctor if your symptoms are not improving over this time. Signs of a more serious head injury include vomiting , severe headache, excessive sleepiness or confusion, and weakness or numbness in your face, arms or legs. Return immediately to the Emergency Department if you experience any of these more concerning symptoms. Rest, avoid strenuous physical or mental activity, and avoid activities that could potentially result in another head injury until all your symptoms from this head injury are completely resolved for at least 2-3 weeks. If you participate in sports, get cleared by your doctor or clinical trainer before returning to play. You may take ibuprofen or acetaminophen over the counter according to label instructions for mild headache or scalp soreness. You need to followup urgently with your primary care doctor as your blood sugars were dangerously high today. You did not have any evidence of a dangerous condition associated with these blood sugars at this time. However, it is very important that you get your blood sugars under control. Please take all of your medications exactly as directed. You should avoid foods that are high in carbohydrates and sugary foods. Please return to emergency department immediately if you develop weakness, persistent vomiting, confusion, or any other symptoms that are concerning to you. Your potassium was also moderately elevated today. You should have a recheck of your laboratories with your primary care doctor within the next 24-48 hours.
[2018-06-18 18:46] LABS: ABSOLUTE BASOPHILS # (AUTO) 0.1 10^3/uL (0.0-0.2); ABSOLUTE EOSINOPHILS # (AUTO) 0.2 10^3/uL (0.0-0.6); ABSOLUTE MONOCYTES (AUTO) 0.8 10^3/uL (0.1-1.4); ABSOLUTE NEUT (AUTO) 5.3 10^3/uL (1.7-8.2); BASOPHILS % (AUTO) 0.7 % (0-2); HEMATOCRIT 41.2 % (37.9-51.0); HEMOGLOBIN 13.6 g/dL (13.5-17.0); LYMPHOCYTES % (AUTO) 23.9 % (13-45); MEAN CORPUSCULAR HEMOGLOBIN 30.1 pg (27.0-33.4); MEAN CORPUSCULAR VOLUME 91 fl (80-97); MONOCYTES % (AUTO) 9.6 % (3-13); PLATELET COUNT 251 10^3/uL (150-450); RED BLOOD COUNT 4.52 10^6/uL (4.35-5.55); RED CELL DISTRIBUTION WIDTH 14.8 % (11.5-14.0); SEGMENTED NEUTROPHILS % (AUTO) 63.8 % (42-78); TOTAL CELLS COUNTED % (AUTO) 100 %; WHITE BLOOD COUNT 8.2 10^3/uL (4.0-10.5)
[2018-06-18 18:51] LABS: INTERNATIONAL RATION (INR) 1.04; PROTHROMBIN TIME 14.1 SEC (11.4-15.4)
[2018-06-18 18:52] LABS: PARTIAL THROMBOPLASTIN TIME 28.5 SEC (23.5-35.8)
[2018-06-18 19:10] LABS: ALANINE AMINOTRANSFERASE 21 U/L (21-72); ALBUMIN 4.5 g/dL (3.5-5.0); ALKALINE PHOSPHATASE 89 U/L (38-126); ANION GAP 17 (5-19); ASPARTATE AMINO TRANSFERASE 22 U/L (17-59); BILIRUBIN,DIRECT 0.5 mg/dL (0.0-0.4); BILIRUBIN,TOTAL 0.7 mg/dL (0.2-1.3); BLOOD UREA NITROGEN 23 mg/dL (7-20); CALCIUM 10.8 mg/dL (8.4-10.2); CARBON DIOXIDE 23 mmol/L (22-30); CHLORIDE 94 mmol/L (98-107); CREATINE KINASE 100 U/L (55-170); POTASSIUM 5.8 mmol/L (3.6-5.0); SODIUM 133.7 mmol/L (137-145); TOTAL PROTEIN 7.5 g/dL (6.3-8.2)
[2018-06-18 19:21] LABS: CREATINE KINASE MB 3.99 ng/mL (<4.55)
--- NOTE | 2018-06-18 19:24 | RADIOLOGY REPORT (SQ) ---
EXAM DESCRIPTION: CT CERVICAL SPINE WITHOUT COMPLETED DATE/TIME: 06/18/2018 7:09 pm REASON FOR STUDY: trauma COMPARISON: None. TECHNIQUE: Axial images acquired through the cervical spine without intravenous contrast. Images re viewed with lung, soft tissue and bone windows. Reconstructed coronal and sagittal MPR images review ed. Images stored on PACS. All CT scanners at this facility use dose modulation, iterative reconstruction, and/or weight based d osing when appropriate to reduce radiation dose to as low as reasonably achievable (ALARA). [facility]: Dose Right [facility]: CareDose [facility]: Dose Right [facility]: Teradose 4D [facility]: Smart PRX RADIATION DOSE: mGy. LIMITATIONS: None. FINDINGS: ALIGNMENT: Anatomic. MINERALIZATION: Normal. VERTEBRAL BODIES: No fractures or dislocation. DISCS: Degenerative disc disease C4-5. FACETS, LATERAL MASSES, POSTERIOR ELEMENTS: No fractures. No dislocation. No acute findings. HARDWARE: None in the spine. VISUALIZED RIBS: No fractures. LUNG APICES AND SOFT TISSUES: Marked carotid artery calcification. OTHER: No other significant finding. IMPRESSION: NO ACUTE OR SIGNIFICANT FINDINGS IN THE CERVICAL SPINE. TECHNICAL DOCUMENTATION: JOB ID: [id number] Quality ID # [id number]: Final reports with documentation of one or more dose reduction techniques (e.g., Au tomated exposure control, adjustment of the mA and/or kV according to patient size, use of iterative reconstruction technique) 2010 [employer]- All Rights Reserved Reading location - IP/workstation name: [email or web address]
--- NOTE | 2018-06-18 19:25 | RADIOLOGY REPORT (SQ) ---
EXAM DESCRIPTION: MANDIBLE 4 VIEWS OR MORE COMPLETED DATE/TIME: 06/18/2018 7:17 pm REASON FOR STUDY: trauma COMPARISON: None. NUMBER OF VIEWS: Four view. TECHNIQUE: Images of the mandible acquired. AP, Shelli's, angled right, angled left mandible images. LIMITATIONS: None. FINDINGS: MANDIBLE: Marked osteopenia. ORBITS: No fracture. No foreign body. SINUSES: No mucosal thickening. No air fluid levels. FACIAL BONES: No fracture. OTHER: No other significant finding. IMPRESSION: Limited study. No gross fracture or malalignment. If strong clinical suspicion recomme nd CT. TECHNICAL DOCUMENTATION: JOB ID: [id number] [employer]- All Rights Reserved Reading location - IP/workstation name: [email or web address]
[2018-06-18 19:27] LABS: GLUCOSE 458 mg/dL (75-110)
[2018-06-18 19:28] LABS: TROPONIN I 0.045 ng/mL
[2018-06-18] MEDS ORDERED: ACETAMINOPHEN 325 MG TABLET PO ONE (19:56)
[2018-06-18] MEDS ORDERED: NORMAL SALINE 1000 ML 1,000 ML IV ONE (19:57)
[2018-06-18] MEDS ORDERED: INSULIN REG, HUMAN 100 UNIT/ML 3 ML VIAL (PYX) IV ONE (19:58)
[2018-06-18 20:58] VITALS: BP 153/83
--- NOTE | 2018-06-19 00:17 | EKG REPORT ---
SEVERITY:- ABNORMAL ECG - SINUS RHYTHM RBBB AND LPFB ST DEPRESSION, CONSIDER ISCHEMIA, ANT-LAT LDS : Confirmed by: Jc Rankin 19-Jun-2018 00:17:09
== END 2018-06-18 20:57 | disposition home or self-care (01) ==
LOC: ER 15:28
DX: S09.90XA Unspecified injury of head, initial encounter (principal); R68.84 Jaw pain; W18.39XA Other fall on same level, initial encounter; Y93.89 Activity, other specified; Y92.009 Unspecified place in unspecified non-institutional (private) residence as the place of occurrence of the external cause; E11.65 Type 2 diabetes mellitus with hyperglycemia; E87.5 Hyperkalemia; R42 Dizziness and giddiness; J44.9 Chronic obstructive pulmonary disease, unspecified; F17.200 Nicotine dependence, unspecified, uncomplicated; I25.10 Atherosclerotic heart disease of native coronary artery without angina pectoris; I48.91 Unspecified atrial fibrillation; Z91.14 Patient's other noncompliance with medication regimen; Z79.02 Long term (current) use of antithrombotics/antiplatelets; Z95.5 Presence of coronary angioplasty implant and graft; Z88.8 Allergy status to other drugs, medicaments and biological substances; Z88.6 Allergy status to analgesic agent; Z85.048 Personal history of other malignant neoplasm of rectum, rectosigmoid junction, and anus
CPT/HCPCS: 93005; 99283; 96360; 36415; 82553; 82962; 82550; 85025; 85610; 85730; 80053; 84484; 70110; 70450; 72125; 93010; A9270 ×2; J7030; J1815

== ENCOUNTER 2018-06-22 12:49 | Inpatient (IN) | payer MEDICARE, OTHER ==
[2018-06-22] MEDS ORDERED: NORMAL SALINE 1000 ML 1,000 ML IV ONE ×2 (13:25→14:50)
[2018-06-22] MEDS ORDERED: ONDANSETRON HCL INJ/PF 4 MG/2 ML SDV IV ONE (13:26)
--- NOTE | 2018-06-22 13:27 | ER Document Report ---
ED Medical Screen (RME) - General Chief Complaint: High Blood Sugar Stated Complaint: BLOOD SUGAR ISSUES Time Seen by Provider: 06/22/18 13:18 Notes: Patient is a 78-year-old male with diabetes mellitus that presents to the emergency department for chief complaint of polyuria, polydipsia, and high blood sugar. Patient states his been try to give himself insulin, but over the last 2 days his sugars been running in the 500s which is concerning him, he last gave himself 20 units of Novolin, and 20 units of NovoLog approximately 2 hours ago. ROS: Other than noted above, the 12 point review of systems was reviewed with the patient and were negative, all pertinent findings are included in the HPI. PHYSICAL EXAMINATION: Vital signs reviewed. GENERAL: Elderly male and in no acute distress. HEAD: Atraumatic, normocephalic. EYES: Pupils equal round extraocular movements intact, conjunctiva are normal. ENT: Nares patent NECK: Normal range of motion CV: Heart regular rate and rhythm LUNGS: No respiratory distress Musculoskeletal: Normal range of motion NEUROLOGICAL: Normal speech PSYCH: Normal mood, normal affect. MDM: Patient seen and examined for rapid initial assessment. Vital signs reviewed. A comprehensive ED assessment and evaluation of the patient, analysis of test results and completion of the medical decision making process will be conducted by additional ED providers. *Note is created using voice recognition software and may contain spelling, syntax or grammatical errors. TRAVEL OUTSIDE OF THE [place] IN LAST 30 DAYS: No - Related Data Allergies/Adverse Reactions: phenobarbital [Phenobarbital] Allergy (Severe, Verified 06/22/18 12:50) Hallucinations topiramate [Topiramate] Allergy (Severe, Verified 06/22/18 12:50) hallucination primidone [Primidone] Allergy (Verified 06/22/18 12:50) hallucination enoxaparin sodium [From Lovenox] Adverse Reaction (Intermediate, Verified 12:50) bleeding Past Medical History - Past Medical History Cardiac Medical History: Reports: Hx Coronary Artery Disease, Hx Hypercholesterolemia, Hx Heart Murmur Denies: Hx Atrial Fibrillation, Hx Congestive Heart Failure, Hx Heart Attack , Hx Hypertension, Hx Peripheral Vascular Disease, Hx Pulmonary Embolism Pulmonary Medical History: Reports: Hx Bronchitis, Hx COPD, Hx Pneumonia - hx of Denies: Hx Asthma, Hx Respiratory Failure, Hx Sleep Apnea, Hx Tuberculosis Neurological Medical History: Reports: 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 Denies: Hx Seizures Endocrine Medical History: Reports: Hx Diabetes Mellitus Type 1, Hx Diabetes Mellitus Type 2, Hx Hyperthyroidism, Hx Hypothyroidism Renal/ Medical History: Denies: Hx Benign Prostatic Hyperplasia, Hx End Stage Renal Disease, Hx Kidney Stones, Hx Peritoneal Dialysis Malignancy Medical History: Reports Hx Colorectal Cancer, Denies Hx Leukemia, Denies Hx Lung Cancer GI Medical History: Reports: Hx Hiatal Hernia, Hx Ulcer. Denies: Hx Crohn's Disease, Hx Gastroesophageal Reflux Disease, Hx Hepatitis, Hx Irritable Bowel, Hx Liver Failure, Hx Pancreatitis Musculoskeltal Medical History: Reports Hx Arthritis - osteoarthritis, Denies Hx Fibromyalgia, Denies Hx Multiple Sclerosis, Denies Hx Muscular Dystrophy Psychiatric Medical History: Reports: Hx Depression, Hx Post Traumatic Stress Disorder - anxiety Denies: Hx Bipolar Disorder, Hx Dementia, Hx Schizophrenia Traumatic Medical History: Denies: Hx Fractures Infectious Medical History: Denies: Hx Hepatitis, Hx HIV Past Surgical History: Reports: Hx Abdominal Surgery - colostomy, hiatal hernia , Hx Appendectomy, Hx Bowel Surgery - colon resection with iliostomy, Hx Cardiac Catheterization, Hx Coronary Stent - x 3, Hx Herniorrhaphy - hiatal, Hx Tonsillectomy. Denies: Hx Cholecystectomy, Hx Colostomy, Hx Coronary Artery Bypass Graft, Hx Gastric Bypass Surgery, Hx Open Heart Surgery, Hx Pacemaker - Immunizations Hx Diphtheria, Pertussis, Tetanus Vaccination: Yes History of Influenza Vaccine for 05/2017 - 10/2017 Season: No Physical Exam - Vital signs Vitals: Temp Pulse Resp BP Pulse Ox 98.4 F 102 H 20 169/108 H 93 06/22/18 12:54 06/22/18 12:54 06/22/18 12:54 06/22/18 12:54 06/22/18 12:54 Course - Vital Signs Vital signs: Temp Pulse Resp BP Pulse Ox 98.4 F 102 H 20 169/108 H 93 06/22/18 12:54 06/22/18 12:54 06/22/18 12:54 06/22/18 12:54 06/22/18 12:54
[2018-06-22 14:04] LABS: ABSOLUTE EOSINOPHILS # (AUTO) 0.1 10^3/uL (0.0-0.6); ABSOLUTE LYMPHOCYTES (AUTO) 1.5 10^3/uL (0.5-4.7); ABSOLUTE MONOCYTES (AUTO) 0.6 10^3/uL (0.1-1.4); ABSOLUTE NEUT (AUTO) 4.3 10^3/uL (1.7-8.2); BASOPHILS % (AUTO) 0.7 % (0-2); HEMATOCRIT 38.9 % (37.9-51.0); HEMOGLOBIN 12.8 g/dL (13.5-17.0); LYMPHOCYTES % (AUTO) 23.1 % (13-45); MEAN CORPUSCULAR HEMOGLOBIN 30.8 pg (27.0-33.4); MEAN CORPUSCULAR HGB CONC 32.9 g/dL (32.0-36.0); MEAN CORPUSCULAR VOLUME 94 fl (80-97); MONOCYTES % (AUTO) 9.2 % (3-13); PLATELET COUNT 287 10^3/uL (150-450); RED BLOOD COUNT 4.15 10^6/uL (4.35-5.55); TOTAL CELLS COUNTED % (AUTO) 100 %; WHITE BLOOD COUNT 6.5 10^3/uL (4.0-10.5)
[2018-06-22 14:13] LABS: VENOUS BLOOD BASE EXCESS -6.5 mmol/L; VENOUS BLOOD HCO3 19.9 mmol/L (20-32); VENOUS BLOOD PCO2 42.5 mmHg (35-63); VENOUS BLOOD PH 7.29 (7.30-7.42)
[2018-06-22 14:15] LABS: APPEARANCE,URINE CLEAR; BILIRUBIN,URINE NEGATIVE (NEGATIVE); COLOR,URINE COLORLESS; GLUCOSE, URINE >=500 mg/dL (NEGATIVE); KETONES,URINE 20 mg/dL (NEGATIVE); LEUKOCYTE ESTERASE,URINE NEGATIVE (NEGATIVE); NITRITE,URINE NEGATIVE (NEGATIVE); PROTEIN,URINE NEGATIVE (NEGATIVE); URINE SPECIFIC GRAVITY 1.018; UROBILINOGEN,URINE NEGATIVE mg/dL (<2.0)
--- NOTE | 2018-06-22 14:17 | ER Document Report ---
ED General - General Chief Complaint: High Blood Sugar Stated Complaint: BLOOD SUGAR ISSUES Time Seen by Provider: 06/22/18 13:18 Mode of Arrival: Ambulatory Information source: Patient Notes: This is a 78-year-old man with a history of atrial fibrillation (Eliquis), COPD , diabetes with DKA in the past, colon cancer (status post total colectomy) who presents to the emergency room with difficulty controlling blood sugars for the past 2 days. Patient states he was usual state of health up until about 4 days ago when he got up quickly and then fell. He did have right mandible pain and was evaluated in the emergency room at that time. He states he has been doing okay but noticed that he was having difficulty with his blood sugars starting yesterday. He denies any fever, chills. He has a chronic cough but denies any sputum production. He denies any abdominal pain. He denies any skin rashes. Review of systems: He does have some right mandible pain residual after fall. He denies any difficulty eating. TRAVEL OUTSIDE OF THE [place] IN LAST 30 DAYS: No - HPI Onset: Yesterday Onset/Duration: Gradual, Constant Severity: None Pain Level: Denies Associated symptoms: Nonproductive cough, Nausea. denies: Chest pain, Fever, Shortness of breath, Weakness Exacerbated by: Denies Relieved by: Denies Similar symptoms previously: Yes Recently seen / treated by doctor: No - Related Data Allergies/Adverse Reactions: phenobarbital [Phenobarbital] Allergy (Severe, Verified 06/22/18 14:12) Hallucinations topiramate [Topiramate] Allergy (Severe, Verified 06/22/18 14:12) hallucination primidone [Primidone] Allergy (Verified 06/22/18 14:12) hallucination enoxaparin sodium [From Lovenox] Adverse Reaction (Intermediate, Verified 14:12) bleeding Past Medical History - General Information source: Patient - Social History Smoking Status: Current Every Day Smoker Cigarette use (# per day): Yes - Half a pack per day Chew tobacco use (# tins/day): No Frequency of alcohol use: None Drug Abuse: None Lives with: Alone Family History: Hyperlipidemia Patient has suicidal ideation: No Patient has homicidal ideation: No - Past Medical History Cardiac Medical History: Reports: Hx Coronary Artery Disease, Hx Hypercholesterolemia, Hx Heart Murmur Denies: Hx Atrial Fibrillation, Hx Congestive Heart Failure, Hx Heart Attack , Hx Hypertension, Hx Peripheral Vascular Disease, Hx Pulmonary Embolism Pulmonary Medical History: Reports: Hx Bronchitis, Hx COPD, Hx Pneumonia - hx of Denies: Hx Asthma, Hx Respiratory Failure, Hx Sleep Apnea, Hx Tuberculosis Neurological Medical History: Reports: 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 Denies: Hx Seizures Endocrine Medical History: Reports: Hx Diabetes Mellitus Type 1, Hx Diabetes Mellitus Type 2, Hx Hyperthyroidism, Hx Hypothyroidism Renal/ Medical History: Denies: Hx Benign Prostatic Hyperplasia, Hx End Stage Renal Disease, Hx Kidney Stones, Hx Peritoneal Dialysis Malignancy Medical History: Reports Hx Colorectal Cancer, Denies Hx Leukemia, Denies Hx Lung Cancer GI Medical History: Reports: Hx Hiatal Hernia, Hx Ulcer. Denies: Hx Crohn's Disease, Hx Gastroesophageal Reflux Disease, Hx Hepatitis, Hx Irritable Bowel, Hx Liver Failure, Hx Pancreatitis Musculoskeletal Medical History: Reports Hx Arthritis - osteoarthritis, Denies Hx Fibromyalgia, Denies Hx Multiple Sclerosis, Denies Hx Muscular Dystrophy Psychiatric Medical History: Reports: Hx Depression, Hx Post Traumatic Stress Disorder - anxiety Denies: Hx Bipolar Disorder, Hx Dementia, Hx Schizophrenia Traumatic Medical History: Denies: Hx Fractures Infectious Medical History: Denies: Hx Hepatitis, Hx HIV Past Surgical History: Reports: Hx Abdominal Surgery - colostomy, hiatal hernia , Hx Appendectomy, Hx Bowel Surgery - colon resection with iliostomy, Hx Cardiac Catheterization, Hx Coronary Stent - x 3, Hx Herniorrhaphy - hiatal, Hx Tonsillectomy. Denies: Hx Cholecystectomy, Hx Colostomy, Hx Coronary Artery Bypass Graft, Hx Gastric Bypass Surgery, Hx Open Heart Surgery, Hx Pacemaker - Immunizations Hx Diphtheria, Pertussis, Tetanus Vaccination: Yes Hx Pneumococcal Vaccination: 05/03/12 Review of Systems - Review of Systems Constitutional: denies: Chills, Fever EENT: See HPI Cardiovascular: denies: Chest pain, Palpitations, Heart racing Respiratory: Cough. denies: Hemoptysis, Short of breath Gastrointestinal: No symptoms reported Genitourinary: No symptoms reported Male Genitourinary: No symptoms reported Musculoskeletal: No symptoms reported Skin: No symptoms reported Hematologic/Lymphatic: No symptoms reported Neurological/Psychological: No symptoms reported Physical Exam - Vital signs Vitals: Temp Pulse Resp BP Pulse Ox 98.4 F 102 H 20 169/108 H 93 06/22/18 12:54 06/22/18 12:54 06/22/18 12:54 06/22/18 12:54 06/22/18 12:54 Notes: Physical exam: GENERAL: 78-year-old man is alert and oriented answering questions. He did drive here today. He denies any pain. He is afebrile with stable vital signs. He is in no distress. HEAD: Atraumatic, normocephalic. EYES: Pupils equal round and reactive to light, extraocular movements intact, sclera anicteric, conjunctiva are normal. ENT: TMs normal, nares patent, oropharynx clear without exudates. Moist mucous membranes. NECK: Normal range of motion, supple without obvious mass or JVD. LUNGS: Breath sounds clear to auscultation bilaterally and equal. No wheezes rales or rhonchi. HEART: Regular rate and rhythm. Patient does have a 3/6 systolic murmur at the left lateral sternal border. There is no gallops or rubs. ABDOMEN: Soft, normoactive bowel sounds. No tenderness to palpation. He does have a right ileostomy. No guarding, no rebound. No masses appreciated. EXTREMITIES: Normal range of motion, no pitting or edema. No clubbing or cyanosis. NEUROLOGICAL: Cranial nerves II through XII grossly intact. Normal speech, moving all extremities. PSYCH: Normal mood, normal affect. SKIN: Warm, Dry, normal turgor, no rashes or lesions noted. Course - Re-evaluation Re-evalutation: 06/22/18 15:16 Note: I have seen this patient before and the last time I ended up transferring him to an outside hospital. He was significantly worse at that time. Today, his mental status is clear and he is oriented x3. I have expressed my desire to admit him to the hospital and Dr. Sarabia has accepted him to the [facility]. However , I was called to the room because the patient does not want to be admitted. I have asked if I can call his family to talk to them and he does not want me to because he expressly refuses admission. His mental status is clear and he is acting quite competently at this time. He is allowed me to try and lower the sugar and correct his potassium and give him some IV fluids but he does not want to be admitted to the hospital. Patient is being treated with IV fluids, IV insulin, IV calcium. - Vital Signs Vital signs: Temp Pulse Resp BP Pulse Ox 98.3 F 55 L 12 143/62 H 95 06/23/18 00:35 06/23/18 00:35 06/23/18 00:35 06/23/18 00:35 06/23/18 00:35 - Laboratory Result Diagrams: 06/22/18 13:45 06/22/18 22:30 Laboratory results interpreted by me: 06/22/18 06/22/18 06/22/18 13:45 13:45 13:45 RBC 4.15 L Hgb 12.8 L RDW 15.0 H VBG pH 7.29 L VBG HCO3 19.9 L Sodium 135.1 L Potassium 6.1 H* Chloride 95 L BUN 24 H Glucose 598 H* Calcium 10.5 H ALT 15 L Urine Glucose (UA) Urine Ketones 06/22/18 13:45 RBC Hgb RDW VBG pH VBG HCO3 Sodium Potassium Chloride BUN Glucose Calcium ALT Urine Glucose (UA) >=500 H Urine Ketones 20 H - Diagnostic Test Radiology reviewed: Image reviewed, Reports reviewed - Chest x-ray shows no infiltrates - EKG Interpretation by Me Rate: Normal Rhythm: NSR - EKG shows sinus rhythm with a ventricular rate of 60, there is inverted T's inferiorly as well as anteriorly which have been noted in the past. There is prominent R waves anteriorly which are noted in the past. There is no significant change compared to EKG on 06/18/2018 Critical Care Note - Critical Care Note Total time excluding time spent on procedures (mins): 60 Discharge - Discharge Clinical Impression: DKA, Hyperkalemia Condition: Stable Disposition: ADMITTED INPATIENT Admitting Provider: Hospitalist - Dr Sarabia Unit Admitted: [facility]
[2018-06-22 14:22] LABS: ALANINE AMINOTRANSFERASE 15 U/L (21-72); ALBUMIN 4.4 g/dL (3.5-5.0); ALKALINE PHOSPHATASE 95 U/L (38-126); ANION GAP 17 (5-19); ASPARTATE AMINO TRANSFERASE 18 U/L (17-59); BILIRUBIN,DIRECT 0.4 mg/dL (0.0-0.4); BILIRUBIN,TOTAL 0.6 mg/dL (0.2-1.3); BLOOD UREA NITROGEN 24 mg/dL (7-20); CALCIUM 10.5 mg/dL (8.4-10.2); CARBON DIOXIDE 23 mmol/L (22-30); CHLORIDE 95 mmol/L (98-107); LIPASE 57.4 U/L (23-300); SODIUM 135.1 mmol/L (137-145); TOTAL PROTEIN 7.4 g/dL (6.3-8.2)
[2018-06-22 14:31] LABS: GLUCOSE 598 mg/dL (75-110); POTASSIUM 6.1 mmol/L (3.6-5.0)
[2018-06-22] MEDS ORDERED: DEXTROSE 40% GEL 15 GM TUBE PO PRN ×4 (14:37→19:19)
[2018-06-22] MEDS ORDERED: DEXTROSE 50%-WATER 25 GM/50 ML DISP.SYRIN IV PRN ×4 (14:37→19:19)
[2018-06-22] MEDS ORDERED: GLUCAGON,HUMAN RECOMB 1 MG INJ IM PRN ×2 (14:37→19:19)
[2018-06-22] MEDS ORDERED: NORMAL SALINE 100 ML with INSULIN REGULAR, HUMAN 100 UNIT IV PRN ×2 (14:37)
[2018-06-22] MEDS ORDERED: CALCIUM GLUCONATE 1000 MG/10 ML INJ IV ONE (14:38)
[2018-06-22] MEDS ORDERED: INSULIN REG, HUMAN 100 UNIT/ML 3 ML VIAL (PYX) IV ONE (15:15)
[2018-06-22] MEDS ORDERED: INSULIN REG, HUMAN 100 UNIT/ML 3 ML VIAL (PYX) ONE (15:19)
--- NOTE | 2018-06-22 15:31 | RADIOLOGY REPORT (SQ) ---
EXAM DESCRIPTION: CHEST SINGLE VIEW COMPLETED DATE/TIME: 06/22/2018 2:37 pm REASON FOR STUDY: cough COMPARISON: 06/12/2018 EXAM PARAMETERS: NUMBER OF VIEWS: One view. TECHNIQUE: Single frontal radiographic view of the chest acquired. RADIATION DOSE: NA LIMITATIONS: None. FINDINGS: LUNGS AND PLEURA: Lung herring are hyperexpanded with scarring in the lung apices. No cons olidation or effusions. MEDIASTINUM AND HILAR STRUCTURES: No masses. Contour normal. HEART AND VASCULAR STRUCTURES: Heart normal in size. Normal vasculature. BONES: No acute findings. HARDWARE: None in the chest. OTHER: No other significant finding. IMPRESSION: No acute findings in the chest. TECHNICAL DOCUMENTATION: JOB ID: [id number] [employer]- All Rights Reserved Reading location - IP/workstation name: [email or web address]
--- NOTE | 2018-06-22 15:46 | EKG REPORT ---
SEVERITY:- ABNORMAL ECG - SINUS RHYTHM RBBB AND LPFB ST DEPRESSION, CONSIDER ISCHEMIA, ANT-LAT LDS : Confirmed by: Karina Dale MD 22-Jun-2018 15:46:10
[2018-06-22] MEDS ORDERED: ALPRAZOLAM 0.5 MG TABLET PO ONE (16:13)
[2018-06-22 18:52] LABS: ANION GAP 9 (5-19); BLOOD UREA NITROGEN 19 mg/dL (7-20); CALCIUM 9.7 mg/dL (8.4-10.2); CARBON DIOXIDE 25 mmol/L (22-30); CHLORIDE 104 mmol/L (98-107); GLUCOSE 229 mg/dL (75-110); SODIUM 137.6 mmol/L (137-145)
[2018-06-22 19:08] LABS: POTASSIUM 4.1 mmol/L (3.6-5.0)
[2018-06-22] MEDS ORDERED: INSULIN LISPRO 100 UNIT/ML 3 ML VIAL SUBCUT PRN (19:19)
[2018-06-22] MEDS ORDERED: (PENDING PHARMACY ID) (Nph, Human Insulin Isophane [Novolin N (Nph) Insulin 100 Unit/Ml] 1 SUBCUT SCH (19:30)
--- NOTE | 2018-06-22 21:23 | PDOC H&P ---
History of Present Illness Admission Date/PCP: 06/22/18 15:05 History of Present Illness: JOHN MARIE is a 78 year old male with insulin dependent diabetes mellitus, history of DKA, COPD, history of atrial fibrillation, history of colon CA with prior colectomy who presented with poorly controlled sugars at home. Patient says that in the past 3 days, his blood sugars have poorly controlled. His glucometer has been reading "HIGH" with some readings in the 600s and 500s. He says he has been compliant with his insulin regimen which include Novolin N 10 u TID and a Novolog sliding scale coverage. He denies acute complaints. He denies nausea, vomiting, abdominal pain, fever or chills. He denies chest pain or SOB. In the ER, he was noted have a glucose of 598, Potassium of 6.1, venous pH of 7.29. He has a normal bicarb but he did have some ketonuria. He was started on insulin drip and was also given IV fluids. Upon encounter, patient initially refused admission saying he does not want to stay in the hospital and just wants to be given insulin in the ER. Admitting hospitalist was later called that patient changed his mind and was agreeable for admission. Past Medical History Cardiac Medical History: Reports: Coronary Artery Disease, Hyperlipidema, Heart Murmur Denies: Atrial Fibrillation, Congestive Heart Failure, Myocardial Infarction , Hypertension, Peripheral Vascular Disease, Pulmonary Embolism Pulmonary Medical History: Reports: Bronchitis, Chronic Obstructive Pulmonary Disease (COPD), Pneumonia - hx of Denies: Asthma, Respiratory Failure, Sleep Apnea, Tuberculosis Neurological Medical History: Denies: Seizures Endocrine Medical History: Reports: Diabetes Mellitus Type 1, Diabetes Mellitus Type 2, Hyperthyroidism, Hypothyroidism Renal/ Medical History: Denies: End Stage Renal Disease Malignancy Medical History: Reports: Colorectal Cancer Denies: Leukemia, Lung Cancer GI Medical History: Reports: Hiatal Hernia Denies: Crohn's Disease, Gastroesophageal Reflux Disease, Hepatitis Musculoskeltal Medical History: Reports: Arthritis - osteoarthritis Denies: Fibromyalgia Psychiatric Medical History: Reports: Depression, Post Traumatic Stress Disorder - anxiety Denies: Bipolar Disorder, Dementia Hematology: Reports: Anemia Denies: Hemophilia, Sickle Cell Disease Infectious Medical History: Denies: HIV Past Surgical History Past Surgical History: Reports: Appendectomy, Cardiac Catheterization, Coronary Stent - x 3, Herniorrhaphy - hiatal, Tonsillectomy Denies: Cholecystectomy, Colostomy, Coronary Artery Bypass Graft, Gastric Bypass Surgery, Pacemaker Social History Lives with: Alone Smoking Status: Current Every Day Smoker Frequency of Alcohol Use: None Hx Recreational Drug Use: No Drugs: None Hx Prescription Drug Abuse: No Family History Family History: Hyperlipidemia Parental Family History Reviewed: Yes - no premature CAD Children Family History Reviewed: No Sibling(s) Family History Reviewed.: No Medication/Allergy Home Medications: Venlafaxine HCl ER [Effexor Xr 75 mg Cap.sr] 150 mg PO DAILY 05/09/15 Aspirin [Ecotrin 81 mg EC Tablet] 81 mg PO DAILY #30 tab 05/10/15 Diazepam 2 mg PO TID PRN #0 06/08/15 Dutasteride [Avodart Lf 0.5 mg Capsule] 0.5 mg PO QAM 10/30/15 Ondansetron [Zofran Odt 4 mg Tablet] 1 tab PO Q8H PRN #15 tab.rapdis 06/12/18 Aripiprazole [Abilify 2 mg Tablet] 2 mg PO DAILY 06/22/18 Atorvastatin Calcium [Lipitor 40 mg Tablet] 40 mg PO QHS 06/22/18 Lisinopril [Prinivil] 5 mg PO DAILY 06/22/18 Mirtazapine [Remeron] 45 mg PO QHS 06/22/18 Multivit,Tx with Iron,Minerals [Thera-M] 1 each PO DAILY 06/22/18 Omeprazole 20 mg PO DAILY 06/22/18 Sotalol HCl [Betapace 80 mg Tablet] 80 mg PO TID 06/22/18 Insulin Regular, Human [Humulin R (Reg) Insulin 100 unit/mL] 6 unit SUBCUT AC # 1 unit 06/24/18 NPH, Human Insulin Isophane [Novolin N (NPH) Insulin 100 unit/mL] 15 unit SUBCUT BIDACBS #1 ml 06/24/18 Allergies/Adverse Reactions: phenobarbital [Phenobarbital] Allergy (Severe, Verified 06/22/18 14:12) Hallucinations topiramate [Topiramate] Allergy (Severe, Verified 06/22/18 14:12) hallucination Review of Systems All systems: reviewed and no additional remarkable complaints except as stated - as mentioned in HPI Physical Exam Vital Signs: Temp Pulse Resp BP Pulse Ox 98.4 F 102 H 20 174/67 H 93 06/22/18 12:54 06/22/18 12:54 06/22/18 14:39 06/22/18 14:39 06/22/18 12:54 General appearance: PRESENT: no acute distress, well-developed, well-nourished Head exam: PRESENT: atraumatic, normocephalic Eye exam: PRESENT: conjunctiva pink, EOMI, PERRLA. ABSENT: scleral icterus Ear exam: PRESENT: normal external ear exam Mouth exam: PRESENT: moist, tongue midline Neck exam: ABSENT: carotid bruit, JVD, lymphadenopathy, thyromegaly Respiratory exam: PRESENT: clear to auscultation keith. ABSENT: rales, rhonchi, wheezes Pulses: PRESENT: normal dorsalis pedis pul GI/Abdominal exam: PRESENT: normal bowel sounds, soft. ABSENT: distended, guarding, mass, organolmegaly, rebound, tenderness Rectal exam: PRESENT: deferred Neurological exam: PRESENT: alert, awake, oriented to person, oriented to place , oriented to time, oriented to situation, CN II-XII grossly intact. ABSENT: motor sensory deficit Results Impressions: Chest X-Ray 06/22/18 14:23 IMPRESSION: No acute findings in the chest. Assessment & Plan - Diagnosis (1) Diabetic ketoacidosis Qualifiers: Diabetes mellitus type: type 2 Diabetes mellitus complication detail: without coma Qualified Code(s): E11.10 - Type 2 diabetes mellitus with ketoacidosis without coma Is this a current diagnosis for this admission?: Yes Plan: In the ER, he was noted have a glucose of 598, Potassium of 6.1, venous pH of 7.29. He has a normal bicarb but he did have some ketonuria. He was started on insulin drip and was also given IV fluids. Stat repeat BMP ordered. (2) Elevated troponin Is this a current diagnosis for this admission?: Yes Plan: Patient's troponin is mildly elevated. He does not have any chest pain or SOB. This was checked as ER provider is familiar with patient and [facility]. Patient says that when he was in [facility], he was told he does not need a cath. His EKG shows chronic changes with T inversions on similar leads from previous ones. When his troponin was brought up, he specifically verbalized he does not want us checking the status of his heart and that he recently saw his legal activity adjudicator in [place] and that he was told his heart is fine. He says he only wants us to control his sugars and is not amenable to further cardiac work- up..
[2018-06-22] MEDS: HEPARIN SOD (PORCINE) 5,000 UNIT/ML 1 ML SYRINGE SUBCUT SCH (21:50)
[2018-06-22] MEDS: INSULIN NPH (ISOPHANE), HUMAN 100 UNIT/ML 3 ML SUBCUT SCH (21:51)
[2018-06-22 22:53] LABS: ANION GAP 10 (5-19); BLOOD UREA NITROGEN 16 mg/dL (7-20); CALCIUM 9.5 mg/dL (8.4-10.2); CARBON DIOXIDE 23 mmol/L (22-30); CHLORIDE 107 mmol/L (98-107); GLUCOSE 96 mg/dL (75-110); POTASSIUM 3.9 mmol/L (3.6-5.0); SODIUM 140.1 mmol/L (137-145)
[2018-06-23] MEDS ORDERED: ACETAMINOPHEN 325 MG TABLET PO PRN (01:44)
[2018-06-23] MEDS ORDERED: HUM INSULIN NPH/REG INSULIN HM 100 UNIT/1 ML 3 ML SUBCUT ONE (02:00)
[2018-06-23] MEDS: INSULIN NPH (ISOPHANE), HUMAN 100 UNIT/ML 3 ML SUBCUT SCH ×2 (08:54→17:51)
[2018-06-23] MEDS ORDERED: DEXTROSE 50%-WATER 25 GM/50 ML DISP.SYRIN IV PRN ×2 (10:08)
[2018-06-23] MEDS ORDERED: DEXTROSE 40% GEL 15 GM TUBE PO PRN ×2 (10:08)
[2018-06-23] MEDS ORDERED: GLUCAGON,HUMAN RECOMB 1 MG INJ IM PRN (10:08)
[2018-06-23] MEDS ORDERED: NICOTINE 21 MG/24 HR PATCH.TD24 TD PRN (10:14)
[2018-06-23] MEDS: HEPARIN SOD (PORCINE) 5,000 UNIT/ML 1 ML SYRINGE SUBCUT SCH ×2 (10:30→21:14)
[2018-06-23] MEDS: DIAZEPAM 2 MG TABLET PO PRN ×2 (11:45→16:54)
--- NOTE | 2018-06-23 12:14 | PDOC PROGRESS REPORT ---
Subjective Progress Note for:: 06/23/18 Subjective:: Mr. Roland is a 78 year old male with insulin dependent diabetes mellitus, history of DKA, COPD, CAD and history of colon CA with prior colectomy who presented with poorly controlled sugars at home. Patient says that in the past 3 days, his blood sugars have poorly controlled. His glucometer has been reading "HIGH" with some readings in the 600s and 500s. He says he has been compliant with his insulin regimen which include Novolin N 10 u TID and a Novolog sliding scale coverage. He was admitted for DKA. He was started on insulin drip and was given IV fluids. His DKA resolved overnight and he was successfully transitioned. His Novolin N was increased to 15 u bid. Patient says he uses a Novolin R sliding scale and administers 10 u tid and add extra units on top of this depending on the recommended dose on the sliding scale. His blood sugars have improved to 200s but not yet optimized. He denies chest pain, SOB, nausea, vomiting or dizziness. He is tolerating diet well. Reason For Visit: DKA Physical Exam Vital Signs: Temp Pulse Resp BP Pulse Ox 98.2 F 57 L 16 185/64 H 100 06/23/18 07:48 06/23/18 07:48 06/23/18 07:48 06/23/18 07:48 06/23/18 07:48 Intake & Output 06/22/18 06/23/18 06/24/18 06:59 06:59 06:59 Intake Total 2246 Output Total 425 Balance 1821 Weight 121 lb 7.595 oz General appearance: PRESENT: no acute distress, well-developed, well-nourished Head exam: PRESENT: atraumatic, normocephalic Eye exam: PRESENT: conjunctiva pink, EOMI, PERRLA. ABSENT: scleral icterus Ear exam: PRESENT: normal external ear exam Mouth exam: PRESENT: moist, tongue midline Neck exam: ABSENT: carotid bruit, JVD, lymphadenopathy, thyromegaly Respiratory exam: PRESENT: clear to auscultation keith. ABSENT: rales, rhonchi, wheezes Cardiovascular exam: PRESENT: RRR. ABSENT: diastolic murmur, rubs, systolic murmur Pulses: PRESENT: normal dorsalis pedis pul GI/Abdominal exam: PRESENT: normal bowel sounds, soft. ABSENT: distended, guarding, mass, organolmegaly, rebound, tenderness Rectal exam: PRESENT: deferred Neurological exam: PRESENT: alert, awake, oriented to person, oriented to place , oriented to time, oriented to situation, CN II-XII grossly intact. ABSENT: motor sensory deficit Results Laboratory Results: 06/22/18 22:30 06/22/18 06/22/18 06/22/18 17:56 17:56 22:30 Sodium 137.6 140.1 Potassium 4.1 D 3.9 Chloride 104 107 Carbon Dioxide 25 23 Anion Gap 9 10 BUN 19 16 Creatinine 0.76 0.67 Est GFR ( Amer) > 60 > 60 Est GFR (Non-Af Amer) > 60 > 60 Glucose 229 H 96 Lactic Acid 2.2 H Calcium 9.7 9.5 Impressions: Chest X-Ray 06/22/18 14:23 IMPRESSION: No acute findings in the chest. Assessment & Plan - Diagnosis (1) Diabetic ketoacidosis Qualifiers: Diabetes mellitus type: type 2 Diabetes mellitus complication detail: without coma Qualified Code(s): E11.10 - Type 2 diabetes mellitus with ketoacidosis without coma Is this a current diagnosis for this admission?: Yes Plan: Resolved. Patient was transitioned to a higher dose of Novolin N at 15 u bid. Will start a scheduled premeal coverage with Novolin R instead of him using a sliding scale at home. Will start at 7 u tid premeals of Novolin R and titrate based on suceeding sugars. (2) Elevated troponin Is this a current diagnosis for this admission?: Yes Plan: Patient's troponin is mildly elevated. He does not have any chest pain or SOB. This was checked as ER provider is familiar with patient and patient was apparently transferred to [facility] before for previous troponin elevation. Patient says that when he was in [facility], he was told he does not need a cath. His EKG shows chronic changes with T inversions on similar leads from previous ones. When his troponin was brought up, he specifically verbalized he does not want us checking the status of his heart and that he recently saw his timber management assistant in [place] and that he was told his heart is fine. He says he only wants us to control his sugars and is not amenable to further cardiac work- up.
[2018-06-23] MEDS: INSULIN REG, HUMAN 100 UNIT/ML 3 ML VIAL (PYX) SUBCUT SCH ×3 (13:05→17:50)
[2018-06-23] MEDS: SOTALOL HCL 80 MG TABLET PO SCH ×3 (15:16→17:00)
[2018-06-23] MEDS: LISINOPRIL 5 MG TABLET PO SCH (15:17)
[2018-06-24] MEDS: INSULIN REG, HUMAN 100 UNIT/ML 3 ML VIAL (PYX) SUBCUT SCH (09:37)
[2018-06-24] MEDS: LISINOPRIL 5 MG TABLET PO SCH (09:45)
[2018-06-24] MEDS: SOTALOL HCL 80 MG TABLET PO SCH ×2 (09:45→14:07)
[2018-06-24] MEDS: HEPARIN SOD (PORCINE) 5,000 UNIT/ML 1 ML SYRINGE SUBCUT SCH (09:46)
[2018-06-24] MEDS: INSULIN NPH (ISOPHANE), HUMAN 100 UNIT/ML 3 ML SUBCUT SCH (09:46)
[2018-06-24] MEDS ORDERED: INSULIN REG, HUMAN 100 UNIT/ML 3 ML VIAL (PYX) SUBCUT SCH (11:00)
[2018-06-24] MEDS: DIAZEPAM 2 MG TABLET PO PRN (13:34)
[2018-06-24] MEDS ORDERED: INSULIN REG, HUMAN 100 UNIT/ML 3 ML VIAL (PYX) SUBCUT ONE (14:00)
[2018-06-24 16:00] VITALS: BP 155/63
--- NOTE | 2018-06-24 16:14 | PDOC DISCHARGE SUMMARY ---
General - Admit/Disc Date/PCP Admission Date/Primary Care Provider: 06/22/18 15:05 Discharge Date: 06/24/18 - Discharge Diagnosis (1) Diabetic ketoacidosis Is this a current diagnosis for this admission?: Yes (2) Elevated troponin Is this a current diagnosis for this admission?: Yes - Additional Information Prescriptions: Insulin Regular, Human [Humulin R (Reg) Insulin 100 unit/mL] 6 unit SUBCUT AC # 1 unit NPH, Human Insulin Isophane [Novolin N (NPH) Insulin 100 unit/mL] 15 unit SUBCUT BIDACBS #1 ml Home Medications: Venlafaxine HCl ER [Effexor Xr 75 mg Cap.sr] 150 mg PO DAILY 05/09/15 Aspirin [Ecotrin 81 mg EC Tablet] 81 mg PO DAILY #30 tab 05/10/15 Diazepam 2 mg PO TID PRN #0 06/08/15 Dutasteride [Avodart Lf 0.5 mg Capsule] 0.5 mg PO QAM 10/30/15 Ondansetron [Zofran Odt 4 mg Tablet] 1 tab PO Q8H PRN #15 tab.rapdis 06/12/18 Aripiprazole [Abilify 2 mg Tablet] 2 mg PO DAILY 06/22/18 Atorvastatin Calcium [Lipitor 40 mg Tablet] 40 mg PO QHS 06/22/18 Lisinopril [Prinivil] 5 mg PO DAILY 06/22/18 Mirtazapine [Remeron] 45 mg PO QHS 06/22/18 Multivit,Tx with Iron,Minerals [Thera-M] 1 each PO DAILY 06/22/18 Omeprazole 20 mg PO DAILY 06/22/18 Sotalol HCl [Betapace 80 mg Tablet] 80 mg PO TID 06/22/18 Insulin Regular, Human [Humulin R (Reg) Insulin 100 unit/mL] 6 unit SUBCUT AC # 1 unit 06/24/18 NPH, Human Insulin Isophane [Novolin N (NPH) Insulin 100 unit/mL] 15 unit SUBCUT BIDACBS #1 ml 06/24/18 History of Present Illness History of Present Illness: JOHN MARIE is a 78 year old male with insulin dependent diabetes mellitus, history of DKA, COPD, history of atrial fibrillation, history of colon CA with prior colectomy who presented with poorly controlled sugars at home. Patient says that in the past 3 days, his blood sugars have poorly controlled. His glucometer has been reading "HIGH" with some readings in the 600s and 500s. He says he has been compliant with his insulin regimen which include Novolin N 10 u TID and a Novolog sliding scale coverage. He denies acute complaints. He denies nausea, vomiting, abdominal pain, fever or chills. He denies chest pain or SOB. In the ER, he was noted have a glucose of 598, Potassium of 6.1, venous pH of 7.29. He has a normal bicarb but he did have some ketonuria. He was started on insulin drip and was also given IV fluids. Upon encounter, patient initially refused admission saying he does not want to stay in the hospital and just wants to be given insulin in the ER. Admitting hospitalist was later called that patient changed his mind and was agreeable for admission. Hospital Course Hospital Course: Patient was admitted for mild DKA likely from poor compliance vs suboptimal glycemic control as Hba1c came back elevated at 11. He was started on insulin drip and was given IV fluids and his DKA resolved overnight. Patient says he takes Novolin N 10 u BID and Novolin R 10 u TID premeals but takes extra units of Novolin R on top of the 10 units based on a sliding scale at home. His regimen was adjusted to increase the longer acting insulin and Novolin N was increased to 15 u bid and Novolin R was decreased to 7 u TID scheduled premeals. He did have better glycemic control after increasing the Novolin N to 15 u bid and Novolin R to 7 u TID. He had one episode of hypoglycemia after being given Novolin R. Recommended staying for another day to optimize regimen and glycemic response but patient is adamant of going home today. Hence, will discharge him on 15 u Novolin N bid and will slightyl reduce Novolin R to 6 u TID premeals. He was instructed to regularly check his sugars and keep logs and follow up with PCP and coater associate on Thursday. Patient's troponin was mildly elevated at 0.03 in the ER. He does not have any chest pain or SOB. This was checked as ER provider is familiar with patient and patient was apparently transferred to [facility] before for previous troponin elevation. Patient says that when he was in [place], he was told he does not need a cath. His EKG shows chronic changes with T inversions on similar leads from previous ones. When his troponin was brought up, he specifically verbalized he does not want us checking the status of his heart and that he recently saw his acid maker in [place] and that he was told his heart is fine. He says he only wants us to control his sugars and actually insisted he does not want any further cardiac work-up. Physical Exam Vital Signs: Temp Pulse Resp BP Pulse Ox 97.2 F 70 18 141/69 H 99 06/24/18 11:14 06/24/18 11:14 06/24/18 11:14 06/24/18 11:14 06/24/18 11:14 Intake & Output 06/23/18 06/24/18 06/25/18 06:59 06:59 06:59 Intake Total 2246 1732 450 Output Total 425 350 Balance 1821 1382 450 Weight 121 lb 7.595 oz 117 lb 4.575 oz General appearance: PRESENT: no acute distress, well-developed, well-nourished Head exam: PRESENT: atraumatic, normocephalic Eye exam: PRESENT: conjunctiva pink, EOMI, PERRLA. ABSENT: scleral icterus Ear exam: PRESENT: normal external ear exam Mouth exam: PRESENT: moist, tongue midline Neck exam: ABSENT: carotid bruit, JVD, lymphadenopathy, thyromegaly Respiratory exam: PRESENT: clear to auscultation keith. ABSENT: rales, rhonchi, wheezes Cardiovascular exam: PRESENT: RRR. ABSENT: diastolic murmur, rubs, systolic murmur Pulses: PRESENT: normal dorsalis pedis pul GI/Abdominal exam: PRESENT: normal bowel sounds, soft. ABSENT: distended, guarding, mass, organolmegaly, rebound, tenderness Rectal exam: PRESENT: deferred Extremities exam: PRESENT: full ROM. ABSENT: calf tenderness, clubbing, pedal edema Neurological exam: PRESENT: alert, awake, oriented to person, oriented to place , oriented to time, oriented to situation, CN II-XII grossly intact. ABSENT: motor sensory deficit Psychiatric exam: PRESENT: appropriate affect, normal mood. ABSENT: homicidal ideation, suicidal ideation Results Laboratory Results: 06/22/18 22:30 Impressions: Chest X-Ray 06/22/18 14:23 IMPRESSION: No acute findings in the chest. Qualifiers - * PATIENT BEING DISCHARGED WITH ANY OF THE FOLLOWING DIAGNOSIS: No
== END 2018-06-24 16:43 | disposition home health service (06) | DRG 639 ==
LOC: ER 12:49 → EH 15:05 → 3S 20:12
PROVIDERS: ADMIT Internal Medicine; ATTEND Internal Medicine
DX: E11.10 Type 2 diabetes mellitus with ketoacidosis without coma (principal); J44.9 Chronic obstructive pulmonary disease, unspecified; I48.91 Unspecified atrial fibrillation; R74.8 Abnormal levels of other serum enzymes; F17.210 Nicotine dependence, cigarettes, uncomplicated; Z85.038 Personal history of other malignant neoplasm of large intestine; Z79.4 Long term (current) use of insulin; Z90.49 Acquired absence of other specified parts of digestive tract; Z95.5 Presence of coronary angioplasty implant and graft; Z83.438 Family history of other disorder of lipoprotein metabolism and other lipidemia
CPT/HCPCS: 36415; 71045; 80048; 80053; 81001; 82803; 82962; 83036; 83605; 83690; 84484; 85025; 93005; 93010; 96361; 96374; 99291; J0610; J1644; J1815; J2405; J3490; J7030

== ENCOUNTER → 2018-07-14 | Outpatient (CLI) | payer MEDICARE, OTHER ==
--- NOTE | 2018-07-14 14:36 | RADIOLOGY REPORT (SQ) ---
EXAM DESCRIPTION: CT HEAD COMBO COMPLETED DATE/TIME: 07/14/2018 2:23 pm REASON FOR STUDY: HEADACHE (R51), RECTAL CA (C20) COMPARISON: 06/18/2018 and 04/24/2018. TECHNIQUE: Axial images acquired through the brain without and with intravenous contrast. Images re viewed with bone, brain, and subdural windows. Additional sagittal and coronal reconstructions were generated. Images stored on PACS. All CT scanners at this facility use dose modulation, iterative reconstruction, and/or weight based d osing when appropriate to reduce radiation dose to as low as reasonably achievable (ALARA). [facility]: Dose Right [facility]: CareDose [facility]: Dose Right [facility]: Teradose 4D [facility]: [employer] CONTRAST TYPE AND DOSE: 57 Isovue 370- low osmolar. RENAL FUNCTION: BUN 16 creatinine 0.67. RADIATION DOSE: CT Rad equipment meets quality standard of care and radiation dose reduction techniq ues were employed. CTDIvol: 48.6 mGy. DLP: 905 mGy-cm. . LIMITATIONS: None. FINDINGS: VENTRICLES: Prominent. CEREBRUM: No masses. No hemorrhage. No midline shift. Areas of low density in the white matter mos t likely due to chronic micro-vascular ischemic change. 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 No evide nce for acute infarction. No enhancing lesions. CEREBELLUM: No masses. No hemorrhage. No alteration of density. No evidence for acute infarction. No enhancing lesions. EXTRAAXIAL SPACES: Age-related involutional change. No fluid collections. No masses. No enhancing lesions. ORBITS AND GLOBE: No intra- or extraconal masses. Normal contour of globe without masses. CALVARIUM: No fracture. PARANASAL SINUSES: No fluid or mucosal thickening. SOFT TISSUES: No mass or hematoma. OTHER: No other significant finding. IMPRESSION: CHRONIC CHANGES OF ATROPHY AND MICROVASCULAR ISCHEMIA. 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 NO ACUTE PROCESS. NO ENHANCING LESIONS. EVIDENCE OF ACUTE STROKE: NO. TECHNICAL DOCUMENTATION: JOB ID: [id number] Quality ID # 436: Final reports with documentation of one or more dose reduction techniques (e.g., Au tomated exposure control, adjustment of the mA and/or kV according to patient size, use of iterative reconstruction technique) 2010 [employer]- All Rights Reserved Reading location - IP/workstation name: [email or web address]
--- NOTE | 2018-07-14 14:45 | RADIOLOGY REPORT (SQ) ---
EXAM DESCRIPTION: CT CHEST WITH COMPLETED DATE/TIME: 07/14/2018 2:23 pm REASON FOR STUDY: RECTAL CA C20 MALIGNANT NEOPLASM OF RECTUM R51 HEADACHE COMPARISON: 12/19/2016. TECHNIQUE: CT scan of the chest performed using helical scanning technique with dynamic intravenous contrast injection. Images reviewed with lung, soft tissue and bone windows. Reconstructed coronal and sagittal MPR and MIP images reviewed. All images stored on PACS. All CT scanners at this facility use dose modulation, iterative reconstruction, and/or weight based d osing when appropriate to reduce radiation dose to as low as reasonably achievable (ALARA). [facility]: Dose Right [facility]: CareDose [facility]: Dose Right [facility]: Teradose 4D [facility]: [employer] CONTRAST TYPE AND DOSE: 57 mL Isovue 370- low osmolar. RENAL FUNCTION: BUN 16 creatinine 0.67. RADIATION DOSE: . LIMITATIONS: None. FINDINGS: LUNGS AND PLEURA: Emphysematous changes with chronic scarring. Previously documented nodu les are stable and unchanged. 6 mm nodule in the right lung base adjacent to the diaphragm (axial se case 6, image 107), 4 mm nodule in the posterior right upper lobe (axial series 6, image 30), and 2 m m nodule in the lateral left lower lobe (axial series 6 image 71). No new nodules or masses. No pne umothorax. No effusions. HILAR AND MEDIASTINAL STRUCTURES: No identified masses or abnormal nodes. HEART AND VASCULAR STRUCTURES: No aneurysm or dissection. No central pulmonary emboli. No pericardi al effusion. HARDWARE: None in the chest. UPPER ABDOMEN: See separate report of the CT of the abdomen. THYROID AND OTHER SOFT TISSUES: No masses. No adenopathy. BONES: No significant finding. OTHER: No other significant finding. IMPRESSION: STABLE CT OF THE CHEST WITH IV CONTRAST. COPD WITH CHRONIC SCARRING. SMALL SUBCENTIMET ER NODULES ARE STABLE AND UNCHANGED. NO PROGRESSION AND NO NEW LESIONS. TECHNICAL DOCUMENTATION: JOB ID: [id number] Quality ID # [id number]: Final reports with documentation of one or more dose reduction techniques (e.g., Au tomated exposure control, adjustment of the mA and/or kV according to patient size, use of iterative reconstruction technique) 2010 [employer]- All Rights Reserved Reading location - IP/workstation name: [email or web address]
--- NOTE | 2018-07-14 14:56 | RADIOLOGY REPORT (SQ) ---
EXAM DESCRIPTION: CT ABD/PELVIS WITH IV ORAL COMPLETED DATE/TIME: 07/14/2018 2:23 pm REASON FOR STUDY: RECTAL CA C20 MALIGNANT NEOPLASM OF RECTUM R51 HEADACHE COMPARISON: October 2015 TECHNIQUE: CT scan of the abdomen and pelvis performed using helical scanning technique with dynamic intravenous contrast injection and oral contrast. Images reviewed with lung, soft tissue, and bone w indows. Reconstructed coronal and sagittal MPR images reviewed. Delayed images for evaluation of the urinary system also acquired. All images stored on PACS. All CT scanners at this facility use dose modulation, iterative reconstruction, and/or weight based d osing when appropriate to reduce radiation dose to as low as reasonably achievable (ALARA). [facility]: Dose Right [facility]: CareDose [facility]: Dose Right [facility]: Teradose 4D [facility]: [employer] CONTRAST TYPE AND DOSE: contrast/concentration: Isovue 370.00 mg/ml; Total Contrast Delivered: 57.0 ml; Total Saline Delivered: 65.0 ml RENAL FUNCTION: Creatinine 0.67 RADIATION DOSE: CT Rad equipment meets quality standard of care and radiation dose reduction techniq ues were employed. CTDIvol: 4.4 - 4.5 mGy. DLP: 878 mGy-cm.. LIMITATIONS: None. FINDINGS: LOWER CHEST: See results under chest CT scan LIVER: Normal size. No masses. No dilated ducts. SPLEEN: Normal size. No focal lesions. PANCREAS: No masses. No significant calcifications. No adjacent inflammation or peripancreatic fluid collections. Pancreatic duct not dilated. GALLBLADDER: No identified stones by CT criteria. No inflammatory changes to suggest cholecystitis. ADRENAL GLANDS: No significant masses or asymmetry. RIGHT KIDNEY AND URETER: No solid masses. No significant calcifications. There is hydronephrosis of the right kidney and dilatation of the proximal right ureter presumably related to the urine diste nded bladder. LEFT KIDNEY AND URETER: No solid masses. No significant calcifications. There is hydronephrosis o f the left kidney and dilatation of the proximal left ureter presumably related to the urine distende d bladder. AORTA AND VESSELS: Stable aorto right iliac endograft is again identified. No evidence for an endogr aft leak is seen. [place] aneurysm appears unchanged. Renal arteries, SMA, celiac without stenosis. RETROPERITONEUM: No retroperitoneal adenopathy, hemorrhage or masses. BOWEL AND PERITONEAL CAVITY: Patient is status post colectomy. Ostomy is identified in the right low er quadrant. APPENDIX: Status post appendectomy. PELVIS: No masses are identified to suggest tumor recurrence. Prostatic calcifications are again daniel ntified. No free fluid. Urine distended bladder is identified. ABDOMINAL WALL: No masses. No hernias. BONES: No significant or acute findings. OTHER: No other significant finding. IMPRESSION: No evidence for intra-abdominal or pelvic metastatic disease. Bilateral hydronephrosis presumably related to urine distended bladder. Status post colectomy with an ostomy being identified in the right lower quadrant stable aorto right iliac endograft. [place] aneurysm appears stable. Ot her findings as noted above TECHNICAL DOCUMENTATION: JOB ID: [id number] Quality ID # 436: Final reports with documentation of one or more dose reduction techniques (e.g., Au tomated exposure control, adjustment of the mA and/or kV according to patient size, use of iterative reconstruction technique) 2010 [employer]- All Rights Reserved Reading location - IP/workstation name: [email or web address]
== END ==
LOC: RAD 13:21
PROVIDERS: ATTEND Internal Medicine
DX: C20 Malignant neoplasm of rectum (principal); R51 Headache
CPT/HCPCS: 70470; 71260; 74177

== ENCOUNTER 2018-08-11 21:08 | Emergency (ER) | payer MEDICARE, OTHER ==
--- NOTE | 2018-08-11 22:01 | ER Document Report ---
ED General - General Chief Complaint: General Weakness Stated Complaint: WEAKNESS Time Seen by Provider: 08/11/18 21:56 Notes: Patient is a 78-year-old male who presents with complaint of feeling weak. He says he is just felt generalized weak this. He said this ongoing for 3 days. He was at a different ER yesterday. He was told he had some ketones and received fluid and was discharged home. He says he still feels some weakness therefore is come to the ER. Denies any fevers. No chest pain. No shortness of breath. He had a recurrent cough which is been bothering him for several days which he says he thinks is contributing. He has had a sore throat. He does have a colostomy bag in place which is had since the because of a history of rectal cancer. He is currently cancer free. He denies any vomiting. No abnormal output from the ostomy. No focal weakness or numbness. He does live by himself. No other complaints at this time. TRAVEL OUTSIDE OF THE [place] IN LAST 30 DAYS: No - Related Data Allergies/Adverse Reactions: phenobarbital [Phenobarbital] Allergy (Severe, Verified 06/22/18 14:12) Hallucinations topiramate [Topiramate] Allergy (Severe, Verified 06/22/18 14:12) hallucination Past Medical History - Social History Smoking Status: Current Every Day Smoker Chew tobacco use (# tins/day): No Frequency of alcohol use: None Drug Abuse: None Family History: Hyperlipidemia Patient has suicidal ideation: No Patient has homicidal ideation: No - Past Medical History Cardiac Medical History: Reports: Hx Coronary Artery Disease, Hx Hypercholesterolemia, Hx Heart Murmur Denies: Hx Atrial Fibrillation, Hx Congestive Heart Failure, Hx Heart Attack, Hx Hypertension, Hx Peripheral Vascular Disease, Hx Pulmonary Embolism Pulmonary Medical History: Reports: Hx Bronchitis, Hx COPD, Hx Pneumonia - hx of Denies: Hx Asthma, Hx Respiratory Failure, Hx Sleep Apnea, Hx Tuberculosis Neurological Medical History: Reports: 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 Denies: Hx Seizures Endocrine Medical History: Reports: Hx Diabetes Mellitus Type 1, Hx Diabetes Mellitus Type 2, Hx Hyperthyroidism, Hx Hypothyroidism Renal/ Medical History: Denies: Hx Benign Prostatic Hyperplasia, Hx End Stage Renal Disease, Hx Kidney Stones, Hx Peritoneal Dialysis Malignancy Medical History: Reports Hx Colorectal Cancer, Denies Hx Leukemia, Denies Hx Lung Cancer GI Medical History: Reports: Hx Hiatal Hernia, Hx Ulcer. Denies: Hx Crohn's Disease, Hx Gastroesophageal Reflux Disease, Hx Hepatitis, Hx Irritable Bowel, Hx Liver Failure, Hx Pancreatitis Musculoskeletal Medical History: Reports Hx Arthritis - osteoarthritis, Denies Hx Fibromyalgia, Denies Hx Multiple Sclerosis, Denies Hx Muscular Dystrophy Psychiatric Medical History: Reports: Hx Depression, Hx Post Traumatic Stress Disorder - anxiety Denies: Hx Bipolar Disorder, Hx Dementia, Hx Schizophrenia Traumatic Medical History: Denies: Hx Fractures Infectious Medical History: Denies: Hx Hepatitis, Hx HIV Past Surgical History: Reports: Hx Abdominal Surgery - colostomy, hiatal hernia, Hx Appendectomy, Hx Bowel Surgery - colon resection with iliostomy, Hx Cardiac Catheterization, Hx Coronary Stent - x 3, Hx Herniorrhaphy - hiatal, Hx Tonsillectomy. Denies: Hx Cholecystectomy, Hx Colostomy, Hx Coronary Artery Bypass Graft, Hx Gastric Bypass Surgery, Hx Open Heart Surgery, Hx Pacemaker - Immunizations Hx Diphtheria, Pertussis, Tetanus Vaccination: Yes Hx Pneumococcal Vaccination: 05/03/12 Review of Systems - Review of Systems Notes: My Normal Review Basic REVIEW OF SYSTEMS: CONSTITUTIONAL : Denies fever, chills, or sweats. Denies recent illness. EENT: Denies eye, ear, throat, or mouth pain or symptoms. Denies nasal or sinus congestion. CARDIOVASCULAR: Denies chest pain. RESPIRATORY: Current cough GASTROINTESTINAL: Denies abdominal pain. Denies nausea, vomiting, or diarrhea. MUSCULOSKELETAL: Denies neck or back pain or joint pain or swelling. SKIN: Denies rash or skin lesions. NEUROLOGICAL: Denies altered mental status or loss of consciousness. Denies headache. Denies weakness or paralysis or loss of use of either side. Denies problems with gait or speech. Denies sensory or motor loss. ALL OTHER SYSTEMS REVIEWED AND NEGATIVE. Physical Exam - Vital signs Vitals: Temp Pulse Resp BP Pulse Ox 99.2 F 89 18 154/76 H 100 08/11/18 21:08 08/11/18 21:08 08/11/18 21:08 08/11/18 21:08 08/11/18 21:08 - Notes Notes: General Appearance: Well nourished, alert, cooperative, no acute distress, no obvious discomfort. Vitals: reviewed, See vital signs table. Head: no swelling or tenderness to the head Eyes: PERRL, EOMI, Conjuctiva clear Mouth: No decreasd moisture Throat: No tonsillar inflammation, No airway obstruction, No lymphadenopathy Neck: Supple, no neck tenderness, No thyromegaly Lungs: No wheezing, No rales, No rhonci, No accessory muscle use, good air exchange bilaterally. Heart: Normal rate, Regular rythm, No murmur, no rub Abdomen: Normal BS, soft, no reproducible abdominal tenderness to palpation. Colostomy bag is in the right lower quadrant. Normal-appearing output. No redness or swelling around the back site. Extremities: good pulses in all extremities, no swelling or tenderness in the extremities, no edema. Skin: warm, dry, appropriate color, no rash Neuro: speech clear, oriented x 3, normal affect, responds appropriately to questions. Course - Re-evaluation Re-evalutation: 08/12/18 06:20 Patient complains of generalized weakness. Suspect this probably relates the patient's recent viral type symptoms and has had some congestion a lot of coughing recently. Chest x-rays does not show any evidence of pneumonia. Patient is a diabetic and therefore steroids are not a good option for him. He does not have a lot of wheezing in his lung herring at this time. I informed him that he should continue to drink clear liquids and to continue to eat ap propriately at home. Informed him that he should eventually start to improve. Encouraged him to keep a close eye on his blood sugars and make sure they are managed well. I do not suspect cardiac disease as the potential cause of his weakness as the patient does not have chest pain, he is not significantly short of breath, his troponin and delta troponin are very similar despite being several hours apart, and he does not appear to be to be in any distress and looks overall well. I did talk to the patient and he says he does feel like he wants to go home. I encouraged him return to ER if he has fevers, vomiting, difficulty breathing, or if she feels that he is worsening in any way. I inf ormed her we are happy to reevaluate him at any time. Dictation of this chart was performed using voice recognition software; therefore, there may be some unintended grammatical errors. - Vital Signs Vital signs: Temp Pulse Resp BP Pulse Ox 99.2 F 89 22 H 133/46 H 98 08/11/18 21:08 08/11/18 21:24 08/12/18 04:01 08/12/18 04:01 08/12/18 04:01 - Laboratory Result Diagrams: 08/11/18 21:26 08/11/18 21:26 Laboratory results interpreted by me: 08/11/18 08/11/18 08/11/18 21:26 21:26 21:26 RBC 3.95 L Hgb 11.8 L Hct 35.5 L Monocytes % 14.5 H VBG HCO3 Carbon Dioxide 19 L Glucose 306 H POC Glucose CK-MB (CK-2) 5.23 H Urine Glucose (UA) Urine Ketones Urine Blood 08/11/18 08/11/18 08/11/18 22:35 22:39 23:28 RBC Hgb Hct Monocytes % VBG HCO3 19.0 L Carbon Dioxide Glucose POC Glucose 229 H CK-MB (CK-2) Urine Glucose (UA) >=500 H Urine Ketones 20 H Urine Blood SMALL H - EKG Interpretation by Me Additional EKG results interpreted by me: 08/11/18 21:59 EKG is reviewed and interpreted by me. EKG shows sinus rhythm with a rate of [address] segment elevation. Some biphasic T waves in lateral precordial leads which is unchanged comparison to previous EKG. [place] interval is within normal range. QRS duration and QT intervals are prolonged. Old EKG for comparison is from June 30, 2018. Discharge - Discharge Clinical Impression: Cough, Weakness Condition: Good Disposition: HOME, SELF-CARE Additional Instructions: I suspect your weakness is related to a bronchitis. I suspect this based on the coughing and congestion you have been having. Your xray does not show signs of pneumonia. You blood work otherwise looks okay. I will prescribe you an inhaler to use for the cough. You can take 2 puffs every 4 hours for coughing. Please follow up with your primary care doctor on Thursday for reevaluation. please return to the ER if you develop fevers, chest pain, difficulty breathing, or worsening weakness.
[2018-08-11 22:04] LABS: ABSOLUTE LYMPHOCYTES (AUTO) 0.8 10^3/uL (0.5-4.7); ABSOLUTE MONOCYTES (AUTO) 0.8 10^3/uL (0.1-1.4); BASOPHILS % (AUTO) 0.7 % (0-2); EOSINOPHILS % (AUTO) 0.1 % (0-6); HEMATOCRIT 35.5 % (37.9-51.0); HEMOGLOBIN 11.8 g/dL (13.5-17.0); LYMPHOCYTES % (AUTO) 14.3 % (13-45); MEAN CORPUSCULAR HEMOGLOBIN 29.8 pg (27.0-33.4); MEAN CORPUSCULAR HGB CONC 33.1 g/dL (32.0-36.0); MEAN CORPUSCULAR VOLUME 90 fl (80-97); MONOCYTES % (AUTO) 14.5 % (3-13); PLATELET COUNT 264 10^3/uL (150-450); RED BLOOD COUNT 3.95 10^6/uL (4.35-5.55); SEGMENTED NEUTROPHILS % (AUTO) 70.4 % (42-78); TOTAL CELLS COUNTED % (AUTO) 100 %; WHITE BLOOD COUNT 5.6 10^3/uL (4.0-10.5)
[2018-08-11 22:10] LABS: ALANINE AMINOTRANSFERASE 25 U/L (21-72); ALBUMIN 4.1 g/dL (3.5-5.0); ALKALINE PHOSPHATASE 119 U/L (38-126); ANION GAP 13 (5-19); ASPARTATE AMINO TRANSFERASE 19 U/L (17-59); BILIRUBIN,DIRECT 0.2 mg/dL (0.0-0.4); BILIRUBIN,TOTAL 0.4 mg/dL (0.2-1.3); BLOOD UREA NITROGEN 19 mg/dL (7-20); CALCIUM 9.5 mg/dL (8.4-10.2); CARBON DIOXIDE 19 mmol/L (22-30); CHLORIDE 106 mmol/L (98-107); CREATINE KINASE 123 U/L (55-170); GLUCOSE 306 mg/dL (75-110); POTASSIUM 4.5 mmol/L (3.6-5.0); SODIUM 137.7 mmol/L (137-145); TOTAL PROTEIN 6.6 g/dL (6.3-8.2)
[2018-08-11] MEDS ORDERED: NORMAL SALINE 500 ML IV ONE (22:12)
[2018-08-11 22:21] LABS: CREATINE KINASE MB 5.23 ng/mL (<4.55)
[2018-08-11 22:23] LABS: TROPONIN I 0.065 ng/mL
--- NOTE | 2018-08-11 22:53 | RADIOLOGY REPORT (SQ) ---
EXAM DESCRIPTION: XR CHEST 1 VIEW COMPLETED DATE/TME: 08/11/2018 22:12 CLINICAL HISTORY: 78 years, Male, weakness Compared to chest radiograph dated 06/22/2018. Findings: Heart is not enlarged. Aortic arch is calcified. No consolidations or pleural effusions. No pulmonary edema or pneumothorax. Mild biapical scarring changes. IMPRESSION: No acute disease.
[2018-08-11] MEDS ORDERED: LIDOCAINE 2% VISCOUS SOLN 20 ML UDCUP PO ONE (22:56)
[2018-08-11] MEDS ORDERED: INSULIN REG, HUMAN 100 UNIT/ML 3 ML VIAL (PYX) SUBCUT ONE (22:56)
[2018-08-11 22:58] LABS: APPEARANCE,URINE CLEAR; BILIRUBIN,URINE NEGATIVE (NEGATIVE); COLOR,URINE STRAW; GLUCOSE, URINE >=500 mg/dL (NEGATIVE); KETONES,URINE 20 mg/dL (NEGATIVE); LEUKOCYTE ESTERASE,URINE NEGATIVE (NEGATIVE); NITRITE,URINE NEGATIVE (NEGATIVE); PROTEIN,URINE NEGATIVE (NEGATIVE); URINE SPECIFIC GRAVITY 1.021; UROBILINOGEN,URINE NEGATIVE mg/dL (<2.0)
[2018-08-11 23:04] LABS: VENOUS BLOOD BASE EXCESS -6.8 mmol/L; VENOUS BLOOD PH 7.31 (7.30-7.42)
[2018-08-12] MEDS ORDERED: ALBUTEROL SULFATE HFA (90 MCG/PUFF) 8 GM MDI (1 MDI/ER DISP) IH ONE (03:35)
[2018-08-12 04:16] VITALS: BP 133/46
--- NOTE | 2018-08-12 07:44 | EKG REPORT ---
SEVERITY:- ABNORMAL ECG - SINUS RHYTHM RBBB AND LPFB NONSPECIFIC ST-T CHANGES- INFERIOR LEADS : Confirmed by: Palmer Kincaid MD 12-Aug-2018 07:43:44
== END 2018-08-12 04:40 | disposition home or self-care (01) ==
LOC: ER 21:08
DX: R53.1 Weakness (principal); R05 Cough; J44.9 Chronic obstructive pulmonary disease, unspecified; J02.9 Acute pharyngitis, unspecified; I25.10 Atherosclerotic heart disease of native coronary artery without angina pectoris; E11.9 Type 2 diabetes mellitus without complications; F17.200 Nicotine dependence, unspecified, uncomplicated; Z93.3 Colostomy status; Z85.048 Personal history of other malignant neoplasm of rectum, rectosigmoid junction, and anus; Z88.6 Allergy status to analgesic agent; Z88.8 Allergy status to other drugs, medicaments and biological substances; Z87.01 Personal history of pneumonia (recurrent)
CPT/HCPCS: 93005; 99285; 96360; 36415; 82553; 82962; 82550; 85025; 80053; 81001; 84484; 82803; 71045; 93010; J3490; A9270; J7040; J1815

== ENCOUNTER 2018-10-14 21:38 | Emergency (ER) | payer MEDICARE, OTHER ==
[2018-10-14] MEDS ORDERED: DEXTROSE 50%-WATER 25 GM/50 ML DISP.SYRIN IV ONE (21:46)
--- NOTE | 2018-10-15 01:40 | ER Document Report ---
ED General - General Chief Complaint: Low Blood Sugar Stated Complaint: BLOOD SUGAR ISSUE Time Seen by Provider: 10/15/18 00:56 Primary Care Provider: JENS OWENS MD [Primary Care Provider] - Follow up as needed Notes: Patient is a 78-year-old male who presents emergency department with a chief complaint of hypoglycemia. He was unresponsive at home and found by his daughter. EMS checked his blood sugar and it was 21. They gave him 25 g of D10. He also was able to eat prior to my assessment. At the time of my assessment his blood sugar was up to 400. He denies any dizziness, shortness of breath, chest pain, abdominal pain, or any other symptoms. Patient later told me that he took 10 units of insulin for blood sugar in the 400s. He later rechecked his blood sugar about 2 hours later and it was still in the 300s, therefore he gave himself 15 units of insulin. TRAVEL OUTSIDE OF THE [place] IN LAST 30 DAYS: No - Related Data Allergies/Adverse Reactions: phenobarbital [Phenobarbital] Allergy (Severe, Verified 06/22/18 14:12) Hallucinations topiramate [Topiramate] Allergy (Severe, Verified 06/22/18 14:12) hallucination Past Medical History - Social History Smoking Status: Current Every Day Smoker Chew tobacco use (# tins/day): No Frequency of alcohol use: None Drug Abuse: None Family History: Hyperlipidemia Patient has suicidal ideation: No Patient has homicidal ideation: No - Past Medical History Cardiac Medical History: Reports: Hx Coronary Artery Disease, Hx Hypercholesterolemia, Hx Heart Murmur Denies: Hx Atrial Fibrillation, Hx Congestive Heart Failure, Hx Heart Attack, Hx Hypertension, Hx Peripheral Vascular Disease, Hx Pulmonary Embolism Pulmonary Medical History: Reports: Hx Bronchitis, Hx COPD, Hx Pneumonia - hx of Denies: Hx Asthma, Hx Respiratory Failure, Hx Sleep Apnea, Hx Tuberculosis Neurological Medical History: Reports: 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 Denies: Hx Seizures Endocrine Medical History: Reports: Hx Diabetes Mellitus Type 1, Hx Diabetes Mellitus Type 2, Hx Hyperthyroidism, Hx Hypothyroidism Renal/ Medical History: Denies: Hx Benign Prostatic Hyperplasia, Hx End Stage Renal Disease, Hx Kidney Stones, Hx Peritoneal Dialysis Malignancy Medical History: Reports Hx Colorectal Cancer, Denies Hx Leukemia, Denies Hx Lung Cancer GI Medical History: Reports: Hx Hiatal Hernia, Hx Ulcer. Denies: Hx Crohn's Disease, Hx Gastroesophageal Reflux Disease, Hx Hepatitis, Hx Irritable Bowel, Hx Liver Failure, Hx Pancreatitis Musculoskeletal Medical History: Reports Hx Arthritis - osteoarthritis, Denies Hx Fibromyalgia, Denies Hx Multiple Sclerosis, Denies Hx Muscular Dystrophy Psychiatric Medical History: Reports: Hx Depression, Hx Post Traumatic Stress Disorder - anxiety Denies: Hx Bipolar Disorder, Hx Dementia, Hx Schizophrenia Traumatic Medical History: Denies: Hx Fractures Infectious Medical History: Denies: Hx Hepatitis, Hx HIV Past Surgical History: Reports: Hx Abdominal Surgery - colostomy, hiatal hernia, Hx Appendectomy, Hx Bowel Surgery - colon resection with iliostomy, Hx Cardiac Catheterization, Hx Coronary Stent - x 3, Hx Herniorrhaphy - hiatal, Hx Tonsillectomy. Denies: Hx Cholecystectomy, Hx Colostomy, Hx Coronary Artery Bypass Graft, Hx Gastric Bypass Surgery, Hx Open Heart Surgery, Hx Pacemaker - Immunizations Hx Diphtheria, Pertussis, Tetanus Vaccination: Yes Hx Pneumococcal Vaccination: 05/03/12 Review of Systems - Review of Systems Notes: REVIEW OF SYSTEMS: CONSTITUTIONAL : Denies recent illness. Denies recent unintentional weight loss. Denies fever, chills, or sweats. EENT: Denies eye, ear, throat, or mouth pain, discharge, or symptoms. Denies n manjit or sinus congestion. CARDIOVASCULAR: Denies chest pain. RESPIRATORY: Denies shortness of breath, cough, congestion, difficulty breathing, or wheezing. GASTROINTESTINAL: Denies nausea, vomiting, and diarrhea. Denies abdominal pain. Denies constipation. GENITOURINARY: Denies difficulty urinating, burning, blood in urine, urgency or frequency. MUSCULOSKELETAL: Denies neck and back pain. Denies joint pain or swelling. SKIN: Denies rash, itchiness, or lesions HEMATOLOGIC : Denies easy bruising or bleeding. LYMPHATIC: Denies swollen, painful, enlarged glands. NEUROLOGICAL: See HPI PSYCHIATRIC: Denies stress, anxiety, alteration in sleep patterns, or depression. All other systems reviewed and negative. Physical Exam - Vital signs Vitals: Temp Pulse Resp BP Pulse Ox 97.5 F 59 L 17 161/51 H 100 10/14/18 22:09 10/14/18 22:09 10/14/18 22:09 10/14/18 22:09 10/14/18 22:09 - Notes Notes: PHYSICAL EXAMINATION: GENERAL: Appears chronically ill. HEAD: Normocephalic, atraumatic. EYES: PERRL, conjunctiva normal, all extraocular movements intact, sclera nonicteric ENT: Moist mucous membranes. NECK: Supple, no noticeable swelling, redness, rash. Normal range of motion. LUNGS: Equal breath sounds bilaterally and clear to auscultation. No wheezes rales or rhonchi. CARDIOVASCULAR: S1-S2, regular rate, regular rhythm. Radial pulses 2+, normal. ABDOMEN: Normoactive bowel sounds. Soft, nontender, no guarding, no rebound tenderness, and no masses palpated. EXTREMITIES: Normal strength and range of motion, no pitting or edema. No c yanosis. NEUROLOGICAL: Moves all extremities upon command. Strength 5/5 in all extremities. PSYCH: Normal mood, normal affect. SKIN: Warm, dry. No rash, lesions, ulcerations noted. Normal skin turgor. Course - Re-evaluation Re-evalutation: 10/15/18 03:17 Patient's blood sugar on labs is 287, but his bedside reading was 473. His chemistries are unremarkable. At this time, he will be sent home now that his sugars have improved. I do not suspect he has any intracranial bleed, because he is strong in all extremities. He is at baseline oriented. He also stated that he checked his blood sugar and it was in the 400s, give himself 10 units of insulin and about 2 hours later his sugar was not better, therefore he gave himself an extra 15 units of insulin and next thing he knew, he was emergency department. He will follow-up with his database programmer in regards to this visit. Verbal discharge instructions were given to the patient. They verbalized understanding. They are stable for discharge. 10/15/18 06:35 Patient is waiting for his ride and he just received his insulin about 2 hours ago. His blood sugar will be rechecked to make sure that it is not going too high or too low. 10/15/18 07:17 JOANNE Contreras notified me that the patient's blood sugars are now in the 200s. He again is stable for discharge. - Vital Signs Vital signs: Temp Pulse Resp BP Pulse Ox 97.5 F 59 L 17 161/51 H 100 10/14/18 22:09 10/14/18 22:09 10/14/18 22:09 10/14/18 22:09 10/14/18 22:09 - Laboratory Result Diagrams: 10/14/18 22:15 10/14/18 22:15 Laboratory results interpreted by me: 10/14/18 10/14/18 10/15/18 22:15 22:15 04:47 RDW 16.0 H Seg Neutrophils % 80.6 H Sodium 136.0 L Glucose 287 H POC Glucose 373 H Discharge - Discharge Clinical Impression: Hypoglycemia Condition: Stable Disposition: HOME, SELF-CARE Additional Instructions: You were seen today in the emergency department for low blood sugar levels. Please follow-up with your database programmer tomorrow in regards to your visit here today in the emergency department. Please see if you can get an appointment with them tomorrow and let them know that your blood sugar was 21 here in the emergency department and you were seen here. Please wait 4-5 hours after giving herself insulin to check your blood sugar again. Do not double dose your insulin. This is the most likely cause of why your blood sugar was 21 today. Please make sure that your glucometer is calibrated correctly. Please also see your primary care doctor in regards to your visit. Referrals: JENS OWENS MD [Primary Care Provider] - Follow up as needed
[2018-10-15 02:19] LABS: ABSOLUTE BASOPHILS # (AUTO) 0.1 10^3/uL (0.0-0.2); ABSOLUTE MONOCYTES (AUTO) 0.3 10^3/uL (0.1-1.4); ABSOLUTE NEUT (AUTO) 5.7 10^3/uL (1.7-8.2); BASOPHILS % (AUTO) 0.9 % (0-2); EOSINOPHILS % (AUTO) 0.3 % (0-6); HEMATOCRIT 41.7 % (37.9-51.0); HEMOGLOBIN 13.6 g/dL (13.5-17.0); LYMPHOCYTES % (AUTO) 13.5 % (13-45); MEAN CORPUSCULAR HEMOGLOBIN 29.8 pg (27.0-33.4); MEAN CORPUSCULAR HGB CONC 32.7 g/dL (32.0-36.0); MEAN CORPUSCULAR VOLUME 91 fl (80-97); MONOCYTES % (AUTO) 4.7 % (3-13); PLATELET COUNT 241 10^3/uL (150-450); RED BLOOD COUNT 4.57 10^6/uL (4.35-5.55); SEGMENTED NEUTROPHILS % (AUTO) 80.6 % (42-78); TOTAL CELLS COUNTED % (AUTO) 100 %; WHITE BLOOD COUNT 7.1 10^3/uL (4.0-10.5)
[2018-10-15 02:28] LABS: ALANINE AMINOTRANSFERASE 30 U/L (21-72); ALBUMIN 4.1 g/dL (3.5-5.0); ALKALINE PHOSPHATASE 85 U/L (38-126); ANION GAP 12 (5-19); ASPARTATE AMINO TRANSFERASE 29 U/L (17-59); BILIRUBIN,DIRECT 0.2 mg/dL (0.0-0.4); BILIRUBIN,TOTAL 0.3 mg/dL (0.2-1.3); BLOOD UREA NITROGEN 20 mg/dL (7-20); CALCIUM 9.4 mg/dL (8.4-10.2); CARBON DIOXIDE 24 mmol/L (22-30); CHLORIDE 100 mmol/L (98-107); GLUCOSE 287 mg/dL (75-110); POTASSIUM 3.7 mmol/L (3.6-5.0); TOTAL PROTEIN 6.9 g/dL (6.3-8.2)
[2018-10-15] MEDS ORDERED: INSULIN REG, HUMAN 100 UNIT/ML 3 ML VIAL (PYX) SUBCUT ONE (03:41)
[2018-10-15 09:14] VITALS: BP 150/60
== END 2018-10-15 08:45 | disposition home or self-care (01) ==
LOC: ER 21:38
DX: E11.649 Type 2 diabetes mellitus with hypoglycemia without coma (principal); Z79.4 Long term (current) use of insulin; F17.200 Nicotine dependence, unspecified, uncomplicated; I25.10 Atherosclerotic heart disease of native coronary artery without angina pectoris; E78.00 Pure hypercholesterolemia, unspecified; J44.9 Chronic obstructive pulmonary disease, unspecified; I69.351 Hemiplegia and hemiparesis following cerebral infarction affecting right dominant side
CPT/HCPCS: 99285; 36415; 82962; 85025; 80053; A9270; J1815

== ENCOUNTER 2018-12-08 14:35 | Observation (INO) | payer MEDICARE, OTHER ==
[2018-12-08] MEDS ORDERED: ASPIRIN 81 MG TABLET, CHEWABLE PO ONE (14:36)
[2018-12-08 14:47] LABS: ABSOLUTE BASOPHILS # (AUTO) 0.1 10^3/uL (0.0-0.2); ABSOLUTE EOSINOPHILS # (AUTO) 0.1 10^3/uL (0.0-0.6); ABSOLUTE LYMPHOCYTES (AUTO) 1.4 10^3/uL (0.5-4.7); ABSOLUTE MONOCYTES (AUTO) 0.5 10^3/uL (0.1-1.4); ABSOLUTE NEUT (AUTO) 4.6 10^3/uL (1.7-8.2); BASOPHILS % (AUTO) 1.6 % (0-2); EOSINOPHILS % (AUTO) 0.8 % (0-6); HEMATOCRIT 37.7 % (37.9-51.0); HEMOGLOBIN 12.5 g/dL (13.5-17.0); LYMPHOCYTES % (AUTO) 21.3 % (13-45); MEAN CORPUSCULAR HEMOGLOBIN 29.8 pg (27.0-33.4); MEAN CORPUSCULAR VOLUME 90 fl (80-97); PLATELET COUNT 248 10^3/uL (150-450); RED BLOOD COUNT 4.18 10^6/uL (4.35-5.55); RED CELL DISTRIBUTION WIDTH 14.8 % (11.5-14.0); SEGMENTED NEUTROPHILS % (AUTO) 68.3 % (42-78); TOTAL CELLS COUNTED % (AUTO) 100 %; WHITE BLOOD COUNT 6.8 10^3/uL (4.0-10.5)
[2018-12-08 15:05] LABS: ALANINE AMINOTRANSFERASE 16 U/L (21-72); ALBUMIN 4.1 g/dL (3.5-5.0); ALKALINE PHOSPHATASE 80 U/L (38-126); ANION GAP 12 (5-19); ASPARTATE AMINO TRANSFERASE 18 U/L (17-59); BILIRUBIN,DIRECT 0.2 mg/dL (0.0-0.4); BILIRUBIN,TOTAL 0.4 mg/dL (0.2-1.3); BLOOD UREA NITROGEN 27 mg/dL (7-20); CALCIUM 10.5 mg/dL (8.4-10.2); CARBON DIOXIDE 21 mmol/L (22-30); CHLORIDE 102 mmol/L (98-107); CREATINE KINASE 62 U/L (55-170); GLUCOSE 295 mg/dL (75-110); POTASSIUM 4.4 mmol/L (3.6-5.0); SODIUM 135.4 mmol/L (137-145); TOTAL PROTEIN 7.2 g/dL (6.3-8.2)
[2018-12-08] MEDS ORDERED: DILTIAZEM HCL INJ 25 MG/5 ML VIAL IV ONE (15:05)
[2018-12-08] MEDS ORDERED: DILTIAZEM HCL/D5W 125 MG/125 ML RTUINJ IV PRN (15:07)
[2018-12-08 15:17] LABS: CREATINE KINASE MB 2.36 ng/mL (<4.55)
[2018-12-08 15:19] LABS: TROPONIN I 0.045 ng/mL
--- NOTE | 2018-12-08 15:25 | RADIOLOGY REPORT (SQ) ---
EXAM DESCRIPTION: CHEST SINGLE VIEW COMPLETED DATE/TIME: 12/08/2018 3:16 pm REASON FOR STUDY: bed 20 palpitations COMPARISON: None. 08/11/2018 EXAM PARAMETERS: NUMBER OF VIEWS: One view. TECHNIQUE: Single frontal radiographic view of the chest acquired. RADIATION DOSE: NA LIMITATIONS: None. FINDINGS: LUNGS AND PLEURA: Emphysema hyperinflation. Stable chronic biapical scarring. No focal c onsolidation, pleural effusion or pneumothorax. MEDIASTINUM AND HILAR STRUCTURES: No masses. Contour normal. HEART AND VASCULAR STRUCTURES: Heart normal in size. Normal vasculature.Aortic atherosclerosis. BONES: No acute findings. HARDWARE: None in the chest. OTHER: No other significant finding. IMPRESSION: EMPHYSEMATOUS CHANGE WITHOUT EVIDENCE OF ACUTE CARDIOPULMONARY PROCESS. TECHNICAL DOCUMENTATION: JOB ID: [id number] Personal- All Rights Reserved Reading location - IP/workstation name: [email or web address]
[2018-12-08] MEDS ORDERED: NORMAL SALINE 1000 ML 1,000 ML IV ONE ×2 (15:38→15:40)
[2018-12-08] MEDS ORDERED: ASPIRIN 325 MG TABLET PO ONE (15:49)
--- NOTE | 2018-12-08 15:49 | ER Document Report ---
ED General - General Chief Complaint: Nausea Stated Complaint: WEAKNESS Time Seen by Provider: 12/08/18 14:46 Notes: Patient says he has been feeling weak for the past 2 to 3 weeks. Has a history of atrial fibrillation, but has been out of that medication for at least a week. Says is been feeling nauseated but not vomiting. No diarrhea. Only having a pressure feeling in the front of the chest. No actual chest pain. Feeling short of breath, but not unusual for him because he is still a cigarette smoker. Has not had any recent illness such as fever. Patient has a history of colon cancer surgery, carotid artery surgery, and a Audrey fundoplication for hiatal hernia. Patient is an insulin-dependent diabetic. On medications for high blood pressure and high cholesterol. Has had a coronary stent placed. TRAVEL OUTSIDE OF THE [place] IN LAST 30 DAYS: No - Related Data Allergies/Adverse Reactions: phenobarbital [Phenobarbital] Allergy (Severe, Verified 06/22/18 14:12) Hallucinations topiramate [Topiramate] Allergy (Severe, Verified 06/22/18 14:12) hallucination Past Medical History - Social History Smoking Status: Current Every Day Smoker Family History: Reviewed & Not Pertinent, Hyperlipidemia Patient has suicidal ideation: No Patient has homicidal ideation: No - Past Medical History Cardiac Medical History: Reports: Hx Coronary Artery Disease, Hx Hypercholesterolemia, Hx Heart Murmur Pulmonary Medical History: Reports: Hx Bronchitis, Hx COPD, Hx Pneumonia - hx of Neurological Medical History: Reports: Hx Cerebrovascular Accident - x 2 years weakness on rt Endocrine Medical History: Reports: Hx Diabetes Mellitus Type 1, Hx Diabetes Mellitus Type 2, Hx Hyperthyroidism, Hx Hypothyroidism Malignancy Medical History: Reports Hx Colorectal Cancer GI Medical History: Reports: Hx Hiatal Hernia, Hx Ulcer Musculoskeletal Medical History: Reports Hx Arthritis - osteoarthritis Psychiatric Medical History: Reports: Hx Depression, Hx Post Traumatic Stress Disorder - anxiety Past Surgical History: Reports: Hx Abdominal Surgery - colostomy, hiatal hernia, Hx Appendectomy, Hx Bowel Surgery - colon resection with iliostomy, Hx Cardiac Catheterization, Hx Coronary Stent - x 3, Hx Herniorrhaphy - hiatal, Hx Tonsillectomy - Immunizations Hx Diphtheria, Pertussis, Tetanus Vaccination: Yes Hx Pneumococcal Vaccination: 05/03/12 Review of Systems - Review of Systems Notes: REVIEW OF SYSTEMS: CONSTITUTIONAL : Denies fever. EENT: Denies eye, ear, nose or mouth or throat pain or other symptoms. CARDIOVASCULAR: Denies chest pain, just slight pressure. No peripheral edema. RESPIRATORY: Some shortness of breath. No significant cough or chest congestion. Few scattered wheezes in both lung herring. GASTROINTESTINAL: Denies abdominal pain or nausea, vomiting, or diarrhea. GENITOURINARY: Denies difficulty or painful urinating, urinary frequency, blood in urine. MUSCULOSKELETAL: Denies back or neck pain. Denies joint pain or swelling. SKIN: Denies rash or skin lesions. NEUROLOGICAL: Denies LOC or altered mental status. Denies headache. Denies sensory loss or motor deficits. Psychiatric: Patient complains of anxiety. ALL OTHER SYSTEMS REVIEWED AND NEGATIVE. Physical Exam - Vital signs Vitals: Pulse Ox 99 12/08/18 14:36 Interpretation: Tachycardic - Initial heart rate about 130 and regular.. No: H ypoxic Notes: PHYSICAL EXAMINATION: GENERAL: Well-appearing, in no acute distress. HEAD: Atraumatic, normocephalic. EYES: Pupils equal round and reactive to light, extraocular movements intact. ENT: oropharynx clear without exudates. Moist mucous membranes. NECK: Normal range of motion, supple. LUNGS: Breath sounds clear except for a few scattered wheezes both lung herring. HEART: Regular rate and rhythm without murmurs. Heart rate regular and approximately 130/min. ABDOMEN: Soft, nontender. No guarding or rebound. No masses. BACK: No tenderness throughout entire back. EXTREMITIES: Normal range of motion without pain. Negative Homans bilaterally. NEUROLOGICAL: Normal speech, normal gait. Normal sensory, motor, and reflex exams. Awake, alert, and oriented x3. Cranial nerves normal. PSYCH: Normal mood, normal affect. Anxious. SKIN: Warm, dry, no rashes. Course - Re-evaluation Re-evalutation: 12/08/18 15:48 Almost immediately after the patient was given a bolus of 10 mg of diltiazem, he went from atrial flutter to what looks like atrial fib with a ventricular rate of about 100. 12/08/18 17:54 Have spoken with the hospitalist who will admit the patient to telemetry. I discontinued his Cardizem drip and given him 30 mg of diltiazem p.o. Heart rate is now in the 60s. - Vital Signs Vital signs: Temp Pulse Resp BP Pulse Ox 98.3 F 13 78/69 L 100 12/08/18 14:47 12/08/18 19:11 12/08/18 19:11 12/08/18 19:11 - Laboratory Result Diagrams: 12/08/18 14:06 12/08/18 14:06 Laboratory results interpreted by me: 12/08/18 12/08/18 14:06 14:06 RBC 4.18 L Hgb 12.5 L Hct 37.7 L RDW 14.8 H Sodium 135.4 L Carbon Dioxide 21 L BUN 27 H Glucose 295 H Calcium 10.5 H ALT 16 L - Diagnostic Test Radiology results interpreted by me: 12/08/18 17:57 Chest x-ray shows severe changes of emphysema. No heart failure and no infiltrates seen. - EKG Interpretation by Me Rate: Tachycardia - Rate 144 Rhythm: A.Flutter Additional EKG results interpreted by me: 12/08/18 18:01 EKG has atrial flutter initially on the second EKG after conversion shows atrial fibrillation. Patient has an right bundle branch block and a left posterior fascicular block. Possible inferior [place], age indeterminate. Critical Care Note - Critical Care Note Total time excluding time spent on procedures (mins): 40 Discharge - Discharge Clinical Impression: Atrial flutter Atrial fibrillation Qualifiers: Atrial fibrillation type: persistent Qualified Code(s): I48.1 - Persistent atrial fibrillation Condition: Stable Disposition: ADMITTED INPATIENT Admitting Provider: Silvano (Hospitalist) Unit Admitted: Telemetry
[2018-12-08] MEDS ORDERED: HYDROXYZINE PAMOATE 25 MG CAPSULE PO ONE (16:58)
[2018-12-08] MEDS ORDERED: LORAZEPAM INJ 2 MG/1 ML VIAL IV ONE (16:58)
[2018-12-08] MEDS ORDERED: DILTIAZEM HCL 30 MG TABLET PO ONE (17:35)
--- NOTE | 2018-12-08 19:00 | PDOC H&P ---
History of Present Illness Admission Date/PCP: 12/08/18 18:06 History of Present Illness: JOHN MARIE is a 78 year old male past medical history of COPD, dyslipidemia, CVA, PTSD, heavy smoker, hiatal hernia status post fundoplication. Patient presented to ED complaining of 2 to 3 days of weakness, dizziness, shortness of breath, nausea and polyuria. Stating that he ran out of his medication also saying saying that he is living by himself, however he does not remember his medication or underlying medical conditions. Denies any focal neurological deficits, vision changes, fever, chest pain, vomiting, diarrhea, constipation. ED he was found to be in a flutter, a dose of bolus Cardizem, converted to A. fib, will start on Cardizem drip, converted to A. fib rate controlled, was switched to p.o. Cardizem. Hospital was consulted for admission. Past Medical History Cardiac Medical History: Reports: Coronary Artery Disease, Hyperlipidema, Heart Murmur Denies: Atrial Fibrillation, Congestive Heart Failure, Myocardial Infarction, Hypertension, Peripheral Vascular Disease, Pulmonary Embolism Pulmonary Medical History: Reports: Bronchitis, Chronic Obstructive Pulmonary Disease (COPD), Pneumonia - hx of Denies: Asthma, Respiratory Failure, Sleep Apnea, Tuberculosis Neurological Medical History: Denies: Seizures Endocrine Medical History: Reports: Diabetes Mellitus Type 1, Diabetes Mellitus Type 2, Hyperthyroidism, Hypothyroidism Renal/ Medical History: Denies: End Stage Renal Disease Malignancy Medical History: Reports: Colorectal Cancer Denies: Leukemia, Lung Cancer GI Medical History: Reports: Hiatal Hernia Denies: Crohn's Disease, Gastroesophageal Reflux Disease, Hepatitis Musculoskeltal Medical History: Reports: Arthritis - osteoarthritis Denies: Fibromyalgia Psychiatric Medical History: Reports: Depression, Post Traumatic Stress Disorder - anxiety Denies: Bipolar Disorder, Dementia Hematology: Reports: Anemia Denies: Hemophilia, Sickle Cell Disease Infectious Medical History: Denies: HIV Past Surgical History Past Surgical History: Reports: Appendectomy, Cardiac Catheterization, Coronary Stent - x 3, Herniorrhaphy - hiatal, Tonsillectomy Denies: Cholecystectomy, Colostomy, Coronary Artery Bypass Graft, Gastric Bypass Surgery, Pacemaker Social History Smoking Status: Current Every Day Smoker Frequency of Alcohol Use: None Hx Recreational Drug Use: No Drugs: None Hx Prescription Drug Abuse: No Family History Family History: Reviewed & Not Pertinent, Hyperlipidemia Parental Family History Reviewed: Yes Children Family History Reviewed: Yes Sibling(s) Family History Reviewed.: Yes Medication/Allergy Home Medications: Venlafaxine HCl ER [Effexor Xr 75 mg Cap.sr] 150 mg PO DAILY 05/09/15 Aspirin [Ecotrin 81 mg EC Tablet] 81 mg PO DAILY #30 tab 05/10/15 Diazepam 2 mg PO TID PRN #0 06/08/15 Dutasteride [Avodart Lf 0.5 mg Capsule] 0.5 mg PO QAM 10/30/15 Ondansetron [Zofran Odt 4 mg Tablet] 1 tab PO Q8H PRN #15 tab.rapdis 06/12/18 Aripiprazole [Abilify 2 mg Tablet] 2 mg PO DAILY 06/22/18 Atorvastatin Calcium [Lipitor 40 mg Tablet] 40 mg PO QHS 06/22/18 Lisinopril [Prinivil] 5 mg PO DAILY 06/22/18 Mirtazapine [Remeron] 45 mg PO QHS 06/22/18 Multivit,Tx with Iron,Minerals [Thera-M] 1 each PO DAILY 06/22/18 Omeprazole 20 mg PO DAILY 06/22/18 Sotalol HCl [Betapace 80 mg Tablet] 80 mg PO TID 06/22/18 Insulin Regular, Human [Humulin R (Reg) Insulin 100 unit/mL] 6 unit SUBCUT AC #1 unit 06/24/18 NPH, Human Insulin Isophane [Novolin N (NPH) Insulin 100 unit/mL] 15 unit SUBCUT BIDACBS #1 ml 06/24/18 Allergies/Adverse Reactions: phenobarbital [Phenobarbital] Allergy (Severe, Verified 06/22/18 14:12) Hallucinations topiramate [Topiramate] Allergy (Severe, Verified 06/22/18 14:12) hallucination Review of Systems Review of Systems: as per hpi Physical Exam Vital Signs: Temp Pulse Resp BP Pulse Ox 98.3 F 16 126/58 H 83 L 12/08/18 14:47 12/08/18 18:11 12/08/18 18:11 12/08/18 16:10 Intake & Output 12/07/18 12/08/18 12/09/18 06:59 06:59 06:59 Intake Total 2009 Balance 2009 Weight 49.9 kg General appearance: PRESENT: no acute distress, well-developed, well-nourished Head exam: PRESENT: atraumatic, normocephalic Neck exam: ABSENT: carotid bruit, JVD, lymphadenopathy, thyromegaly Respiratory exam: PRESENT: clear to auscultation keith. ABSENT: rales, rhonchi, wheezes Cardiovascular exam: PRESENT: irregular rhythm. ABSENT: diastolic murmur, rubs, systolic murmur GI/Abdominal exam: PRESENT: normal bowel sounds, soft. ABSENT: distended, gua rding, mass, organolmegaly, rebound, tenderness Extremities exam: PRESENT: full ROM. ABSENT: calf tenderness, clubbing, pedal edema Neurological exam: PRESENT: alert, awake, oriented to person, oriented to place, oriented to time, oriented to situation, CN II-XII grossly intact. ABSENT: motor sensory deficit Results Laboratory Results: 12/08/18 14:06 12/08/18 14:06 12/08/18 12/08/18 14:06 14:06 WBC 6.8 RBC 4.18 L Hgb 12.5 L Hct 37.7 L MCV 90 MCH 29.8 MCHC 33.0 RDW 14.8 H Plt Count 248 Seg Neutrophils % 68.3 Lymphocytes % 21.3 Monocytes % 8.0 Eosinophils % 0.8 Basophils % 1.6 Absolute Neutrophils 4.6 Absolute Lymphocytes 1.4 Absolute Monocytes 0.5 Absolute Eosinophils 0.1 Absolute Basophils 0.1 Sodium 135.4 L Potassium 4.4 Chloride 102 Carbon Dioxide 21 L Anion Gap 12 BUN 27 H Creatinine 0.83 Est GFR ( Amer) > 60 Est GFR (Non-Af Amer) > 60 Glucose 295 H Calcium 10.5 H Total Bilirubin 0.4 AST 18 ALT 16 L Alkaline Phosphatase 80 Total Protein 7.2 Albumin 4.1 12/08/18 12/08/18 14:06 14:06 Creatine Kinase 62 CK-MB (CK-2) 2.36 Troponin I 0.045 Impressions: Chest X-Ray 12/08/18 14:36 IMPRESSION: EMPHYSEMATOUS CHANGE WITHOUT EVIDENCE OF ACUTE CARDIOPULMONARY PROC ESS. Assessment and Plan - Diagnosis (1) Atrial fibrillation Qualifiers: Atrial fibrillation type: persistent Qualified Code(s): I48.1 - Persistent atrial fibrillation Is this a current diagnosis for this admission?: No Plan: Rate controlled after being started on Cardizem. Currently off of Cardizem drip. Has been switched to p.o. Cardizem. Review of his records shows that patient is on sotalol. Continue Cardizem right now switched to sotalol if appropriate. He is not anticoagulated. (2) COPD (chronic obstructive pulmonary disease) Qualifiers: COPD type: unspecified COPD Qualified Code(s): J44.9 - Chronic obstructive pulmonary disease, unspecified Is this a current diagnosis for this admission?: No Plan: Not on acute exacerbation. Supplemental oxygen, DuoNeb, PRN BiPAP. (3) History of CVA (cerebrovascular accident) Is this a current diagnosis for this admission?: No Plan: Aspirin, statins. Optimize blood pressure and diabetes. (4) PTSD (post-traumatic stress disorder) Is this a current diagnosis for this admission?: No Plan: Start home meds. (5) Cigarette smoker Is this a current diagnosis for this admission?: No Plan: Counseled on quitting. NicoDerm patch. (6) Hyperlipemia Qualifiers: Hyperlipidemia type: unspecified Qualified Code(s): E78.5 - Hyperlipidemia, unspecified Is this a current diagnosis for this admission?: No Plan: Start statins. (7) Insulin dependent diabetes mellitus Is this a current diagnosis for this admission?: No Plan: Diabetic diet, sliding scale insulin, pre-meal insulin, long-acting insulin.
[2018-12-08] MEDS ORDERED: DIAZEPAM 2 MG PO PRN (19:04)
[2018-12-08] MEDS ORDERED: DIAZEPAM 2 MG TABLET PO PRN (19:07)
[2018-12-08] MEDS ORDERED: IPRATROPIUM/ALBUTEROL 0.5-2.5 MG/3 ML AMPUL NEB PRN (19:08)
[2018-12-08] MEDS ORDERED: ONDANSETRON 4 MG TAB.RAPDIS PO PRN (19:08)
[2018-12-08] MEDS ORDERED: PROMETHAZINE HCL INJ 25 MG/1 ML VIAL IV PRN (19:08)
[2018-12-08] MEDS ORDERED: OXYCODONE-ACETAMINOPHEN 5-325 MG TABLET PO PRN (19:08)
[2018-12-08] MEDS ORDERED: ACETAMINOPHEN 325 MG TABLET PO PRN (19:08)
[2018-12-08] MEDS ORDERED: DEXTROSE 40% GEL 15 GM TUBE PO PRN ×2 (19:13)
[2018-12-08] MEDS ORDERED: DEXTROSE 50%-WATER 25 GM/50 ML DISP.SYRIN IV PRN ×2 (19:13)
[2018-12-08] MEDS ORDERED: GLUCAGON,HUMAN RECOMB 1 MG INJ IM PRN (19:13)
--- NOTE | 2018-12-08 20:07 | EKG REPORT ---
SEVERITY:- ABNORMAL ECG - ATRIAL FLUTTER, A-RATE 326 IRBBB AND LPFB CONSIDER INFERIOR INFARCT : Confirmed by: Karina Dale MD 08-Dec-2018 20:06:55
--- NOTE | 2018-12-08 20:07 | EKG REPORT ---
SEVERITY:- ABNORMAL ECG - ATRIAL FIBRILLATION RBBB AND LPFB INFERIOR INFARCT, AGE INDETERMINATE : Confirmed by: Karina Dale MD 08-Dec-2018 20:06:47
[2018-12-08 21:53] LABS: FREE T3 2.82 pg/mL (2.77-5.27); FREE T4 (FREE THYROXINE) 0.96 ng/dL (0.78-2.19)
[2018-12-08] MEDS ORDERED: ATORVASTATIN CALCIUM 40 MG TABLET PO SCH (22:00)
[2018-12-08] MEDS: MIRTAZAPINE 15 MG TABLET PO SCH (22:00)
[2018-12-08] MEDS ORDERED: INSULIN GLARGINE,HUM.REC.ANLOG 1,000 UNIT/10 ML VIAL SUBCUT SCH (22:00)
[2018-12-08] MEDS ORDERED: (PENDING PHARMACY ID) (Mirtazapine [Remeron] 45 MG) PO SCH (22:00)
[2018-12-08] MEDS ORDERED: FAMOTIDINE 20 MG TABLET PO SCH (22:00)
[2018-12-08 22:07] LABS: THYROID STIMULATING HORMONE 4.97 uIU/mL (0.47-4.68)
[2018-12-08] MEDS: INSULIN LISPRO 100 UNIT/ML 3 ML VIAL SUBCUT SCH (22:38)
[2018-12-08] MEDS: HEPARIN SOD (PORCINE) 5,000 UNIT/ML 1 ML SYRINGE SUBCUT SCH (22:44)
[2018-12-08] MEDS: DILTIAZEM HCL 30 MG TABLET PO SCH (23:43)
[2018-12-08] MEDS: FAMOTIDINE 20 MG TABLET PO SCH (23:43)
[2018-12-09] MEDS: HEPARIN SOD (PORCINE) 5,000 UNIT/ML 1 ML SYRINGE SUBCUT SCH ×3 (05:12→22:10)
[2018-12-09] MEDS: DILTIAZEM HCL 30 MG TABLET PO SCH ×3 (05:12→17:40)
[2018-12-09 06:03] LABS: ABSOLUTE BASOPHILS # (AUTO) 0.1 10^3/uL (0.0-0.2); ABSOLUTE EOSINOPHILS # (AUTO) 0.4 10^3/uL (0.0-0.6); ABSOLUTE LYMPHOCYTES (AUTO) 1.5 10^3/uL (0.5-4.7); ABSOLUTE MONOCYTES (AUTO) 0.5 10^3/uL (0.1-1.4); ABSOLUTE NEUT (AUTO) 2.4 10^3/uL (1.7-8.2); BASOPHILS % (AUTO) 1.2 % (0-2); EOSINOPHILS % (AUTO) 7.3 % (0-6); HEMATOCRIT 34.8 % (37.9-51.0); HEMOGLOBIN 11.6 g/dL (13.5-17.0); LYMPHOCYTES % (AUTO) 31.8 % (13-45); MEAN CORPUSCULAR HEMOGLOBIN 30.1 pg (27.0-33.4); MEAN CORPUSCULAR HGB CONC 33.4 g/dL (32.0-36.0); MEAN CORPUSCULAR VOLUME 90 fl (80-97); MONOCYTES % (AUTO) 9.7 % (3-13); PLATELET COUNT 213 10^3/uL (150-450); RED BLOOD COUNT 3.86 10^6/uL (4.35-5.55); RED CELL DISTRIBUTION WIDTH 14.7 % (11.5-14.0); TOTAL CELLS COUNTED % (AUTO) 100 %; WHITE BLOOD COUNT 4.8 10^3/uL (4.0-10.5)
[2018-12-09 06:25] LABS: ANION GAP 7 (5-19); BLOOD UREA NITROGEN 17 mg/dL (7-20); CARBON DIOXIDE 22 mmol/L (22-30); CHLORIDE 110 mmol/L (98-107); GLUCOSE 219 mg/dL (75-110); SODIUM 139.2 mmol/L (137-145)
[2018-12-09] MEDS: INSULIN LISPRO 100 UNIT/ML 3 ML VIAL SUBCUT SCH ×4 (09:38→22:10)
[2018-12-09] MEDS: SOTALOL HCL 80 MG TABLET PO SCH ×3 (09:38→17:40)
[2018-12-09] MEDS: LISINOPRIL 5 MG TABLET PO SCH (09:39)
[2018-12-09] MEDS: DUTASTERIDE 0.5 MG CAPSULE PO SCH (09:39)
[2018-12-09] MEDS ORDERED: NICOTINE 21 MG/24 HR PATCH.TD24 TD PRN (09:48)
[2018-12-09] MEDS: DOCUSATE SODIUM 100 MG CAPSULE PO SCH (09:58)
[2018-12-09] MEDS ORDERED: ARIPIPRAZOLE 2 MG TABLET PO SCH (10:00)
[2018-12-09] MEDS ORDERED: VENLAFAXINE HCL 75 MG CAP.SR.24H PO SCH (10:00)
[2018-12-09] MEDS ORDERED: ASPIRIN 81 MG TABLET, ENT COATED PO SCH (10:00)
[2018-12-09] MEDS ORDERED: (PENDING PHARMACY ID) (Nph, Human Insulin Isophane [Novolin N (Nph) Insulin 100 Unit/Ml] 1 SUBCUT SCH (12:00)
[2018-12-09] MEDS ORDERED: BENZOCAINE/MENTHOL SORE THROAT LOZENGE BUCCAL PRN (15:33)
--- NOTE | 2018-12-09 15:37 | PDOC PROGRESS REPORT ---
Subjective Progress Note for:: 12/09/18 Subjective:: This is a 78 year old male with a past medical history of paroxysmal AFib on Eliquis, COPD, dyslipidemia, CVA, PTSD, heavy smoker, hiatal hernia with prior fundoplication and history of early stage colon cancer with prior colectomy and colostomy in 1968 who presented with shortness of breath and dizziness. Patient was noted to be in atrial flutter. He was given a dose of Cardizem and converted to A. fib. He was started on Cardizem drip in the ER. Patient was we aned off Cardizem drip No acute event overnight. He was switched to Cardizem PO. He is currently in sinus rhythm at the moment. Denies chest pain or shortness of breath. Reason For Visit: AFIB RVR Physical Exam Vital Signs: Temp Pulse Resp BP Pulse Ox 97.5 F 60 12 156/58 H 97 12/09/18 09:58 12/09/18 14:00 12/09/18 11:25 12/09/18 09:58 12/09/18 11:25 Intake & Output 12/08/18 12/09/18 12/10/18 06:59 06:59 06:59 Intake Total 2009 Balance 2009 Weight 108 lb 11.006 oz General appearance: PRESENT: no acute distress, well-developed, well-nourished Head exam: PRESENT: atraumatic, normocephalic Eye exam: PRESENT: conjunctiva pink, EOMI, PERRLA. ABSENT: scleral icterus Ear exam: PRESENT: normal external ear exam Mouth exam: PRESENT: moist, tongue midline Neck exam: ABSENT: carotid bruit, JVD, lymphadenopathy, thyromegaly Respiratory exam: PRESENT: clear to auscultation keith. ABSENT: rales, rhonchi, wheezes Cardiovascular exam: PRESENT: RRR. ABSENT: diastolic murmur, rubs, systolic murmur Pulses: PRESENT: normal dorsalis pedis pul GI/Abdominal exam: PRESENT: normal bowel sounds, soft. ABSENT: distended, guarding, mass, organolmegaly, rebound, tenderness Rectal exam: PRESENT: deferred Extremities exam: PRESENT: full ROM. ABSENT: calf tenderness, clubbing, pedal edema Neurological exam: PRESENT: alert, awake, oriented to person, oriented to place, oriented to time, oriented to situation, CN II-XII grossly intact. ABSENT: motor sensory deficit Results Laboratory Results: 12/09/18 05:48 12/09/18 05:48 12/08/18 12/09/18 12/09/18 20:17 05:48 05:48 WBC 4.8 RBC 3.86 L Hgb 11.6 L Hct 34.8 L MCV 90 MCH 30.1 MCHC 33.4 RDW 14.7 H Plt Count 213 Seg Neutrophils % 50.0 Lymphocytes % 31.8 Monocytes % 9.7 Eosinophils % 7.3 H Basophils % 1.2 Absolute Neutrophils 2.4 Absolute Lymphocytes 1.5 Absolute Monocytes 0.5 Absolute Eosinophils 0.4 Absolute Basophils 0.1 Sodium 139.2 Potassium 4.0 Chloride 110 H Carbon Dioxide 22 Anion Gap 7 BUN 17 Creatinine 0.64 Est GFR ( Amer) > 60 Est GFR (Non-Af Amer) > 60 Glucose 219 H Calcium 10.0 Magnesium 1.6 TSH 4.97 H Free T4 0.96 Free T3 pg/mL 2.82 12/08/18 12/08/18 12/08/18 14:06 14:06 18:14 Creatine Kinase 62 CK-MB (CK-2) 2.36 Troponin I 0.045 0.061 12/09/18 07:26 Creatine Kinase CK-MB (CK-2) Troponin I 0.060 Impressions: Chest X-Ray 12/08/18 14:36 IMPRESSION: EMPHYSEMATOUS CHANGE WITHOUT EVIDENCE OF ACUTE CARDIOPULMONARY PROCESS. Assessment and Plan - Diagnosis (1) Atrial fibrillation Qualifiers: Atrial fibrillation type: paroxysmal Qualified Code(s): I48.0 - Paroxysmal atrial fibrillation Is this a current diagnosis for this admission?: Yes Plan: Off Cardizem drip. He is currently in sinus rhythm. On PO Cardizem. He is on Eliquis at home. Will resume Eliquis. (2) COPD (chronic obstructive pulmonary disease) Qualifiers: COPD type: unspecified COPD Qualified Code(s): J44.9 - Chronic obstructive pulmonary disease, unspecified Is this a current diagnosis for this admission?: No (3) History of CVA (cerebrovascular accident) Is this a current diagnosis for this admission?: Yes Plan: Not in exacerbation. Breathing treatments as needed. (4) History of creation of ostomy Is this a current diagnosis for this admission?: Yes (5) Cigarette smoker Is this a current diagnosis for this admission?: Yes Plan: We will add nicotine patch. Counseled on smoking cessation. - Time Time Spent with patient: 25-34 minutes
[2018-12-09] MEDS ORDERED: (PENDING PHARMACY ID) (Nph, Human Insulin Isophane [Novolin N (Nph) Insulin 100 Unit/Ml] 3 SUBCUT SCH (18:00)
[2018-12-09] MEDS ORDERED: INSULIN NPH (ISOPHANE), HUMAN 100 UNIT/ML 3 ML SUBCUT SCH (18:00)
[2018-12-09] MEDS: MIRTAZAPINE 15 MG TABLET PO SCH (22:09)
[2018-12-09] MEDS: FAMOTIDINE 20 MG TABLET PO SCH (22:10)
[2018-12-10] MEDS: DILTIAZEM HCL 30 MG TABLET PO SCH ×2 (01:41→05:51)
[2018-12-10] MEDS: HEPARIN SOD (PORCINE) 5,000 UNIT/ML 1 ML SYRINGE SUBCUT SCH (05:52)
[2018-12-10 06:57] LABS: ABSOLUTE EOSINOPHILS # (AUTO) 0.2 10^3/uL (0.0-0.6); ABSOLUTE LYMPHOCYTES (AUTO) 1.2 10^3/uL (0.5-4.7); ABSOLUTE MONOCYTES (AUTO) 0.5 10^3/uL (0.1-1.4); ABSOLUTE NEUT (AUTO) 3.5 10^3/uL (1.7-8.2); BASOPHILS % (AUTO) 0.8 % (0-2); EOSINOPHILS % (AUTO) 3.5 % (0-6); HEMATOCRIT 36.4 % (37.9-51.0); HEMOGLOBIN 11.9 g/dL (13.5-17.0); LYMPHOCYTES % (AUTO) 22.9 % (13-45); MEAN CORPUSCULAR HEMOGLOBIN 29.6 pg (27.0-33.4); MEAN CORPUSCULAR HGB CONC 32.6 g/dL (32.0-36.0); MEAN CORPUSCULAR VOLUME 91 fl (80-97); MONOCYTES % (AUTO) 8.8 % (3-13); PLATELET COUNT 221 10^3/uL (150-450); RED BLOOD COUNT 4.01 10^6/uL (4.35-5.55); RED CELL DISTRIBUTION WIDTH 14.9 % (11.5-14.0); TOTAL CELLS COUNTED % (AUTO) 100 %; WHITE BLOOD COUNT 5.4 10^3/uL (4.0-10.5)
[2018-12-10 07:19] LABS: ANION GAP 6 (5-19); BLOOD UREA NITROGEN 24 mg/dL (7-20); CALCIUM 9.8 mg/dL (8.4-10.2); CARBON DIOXIDE 27 mmol/L (22-30); CHLORIDE 106 mmol/L (98-107); GLUCOSE 144 mg/dL (75-110); POTASSIUM 4.5 mmol/L (3.6-5.0); SODIUM 138.7 mmol/L (137-145)
[2018-12-10] MEDS ORDERED: INSULIN NPH (ISOPHANE), HUMAN 100 UNIT/ML 3 ML SUBCUT SCH (08:00)
[2018-12-10] MEDS: DUTASTERIDE 0.5 MG CAPSULE PO SCH (08:26)
[2018-12-10] MEDS: INSULIN LISPRO 100 UNIT/ML 3 ML VIAL SUBCUT SCH (08:26)
[2018-12-10] MEDS ORDERED: APIXABAN 5 MG TABLET PO SCH (10:00)
[2018-12-10] MEDS: DOCUSATE SODIUM 100 MG CAPSULE PO SCH (10:07)
[2018-12-10] MEDS: LISINOPRIL 5 MG TABLET PO SCH (10:07)
[2018-12-10] MEDS: SOTALOL HCL 80 MG TABLET PO SCH (10:08)
--- NOTE | 2018-12-10 11:17 | PDOC DISCHARGE SUMMARY ---
General - Admit/Disc Date/PCP Admission Date/Primary Care Provider: 12/08/18 18:06 Discharge Date: 12/10/18 - Discharge Diagnosis (1) Atrial fibrillation Is this a current diagnosis for this admission?: Yes (2) COPD (chronic obstructive pulmonary disease) Is this a current diagnosis for this admission?: Yes (3) History of CVA (cerebrovascular accident) Is this a current diagnosis for this admission?: Yes (4) Tobacco dependence Is this a current diagnosis for this admission?: Yes (5) Coronary artery disease Is this a current diagnosis for this admission?: Yes (6) Hyperlipidemia Is this a current diagnosis for this admission?: Yes - Additional Information Resuscitation Status: Full Code Home Medications: Diazepam 2 mg PO TID PRN #0 06/08/15 Dutasteride [Avodart Lf 0.5 mg Capsule] 0.5 mg PO QAM 10/30/15 Lisinopril [Prinivil] 5 mg PO DAILY 06/22/18 Mirtazapine [Remeron] 45 mg PO QHS 06/22/18 Omeprazole 20 mg PO DAILY 06/22/18 Sotalol HCl [Betapace 80 mg Tablet] 80 mg PO BID 06/22/18 Apixaban [Eliquis 5 mg Tablet] 5 mg PO DAILY 12/08/18 Cyproheptadine HCl 4 mg PO BID 12/08/18 Insulin Regular, Human [Humulin R (Reg) Insulin 100 unit/mL] 0 unit SUBCUT .SLIDING SCALE 12/08/18 NPH, Human Insulin Isophane [Novolin N (NPH) Insulin 100 unit/mL] 14 unit SUBCUT QAM 12/08/18 NPH, Human Insulin Isophane [Novolin N (NPH) Insulin 100 unit/mL] 30 units SUBCUT QPM 12/08/18 History of Present Illness History of Present Illness: JOHN MARIE is a 78 year old male past medical history of COPD, dyslipidemia, CVA, PTSD, heavy smoker, hiatal hernia status post fundoplication. Patient presented to ED complaining of 2 to 3 days of weakness, dizziness, shortness of breath, nausea and polyuria. Stating that he ran out of his medication also saying saying that he is living by himself, however he does not remember his medication or underlying medical conditions. Denies any focal neurological deficits, vision changes, fever, chest pain, vomiting, diarrhea, constipation. ED he was found to be in a flutter, a dose of bolus Cardizem, converted to A. fib, will start on Cardizem drip, converted to A. fib rate controlled, was switched to p.o. Cardizem. Hospital was consulted for admission. Hospital Course Hospital Course: This is 78 years old male patient with past medical history of coronary artery disease, hyperlipidemia, heart murmur, history of CVA, A. fib on Eliquis, history of colorectal cancer and PTSD presented with chief complaint of shortness of breath and dizziness. Patient found to have atrial flutter which is converted to A. fib after he was given Cardizem. Telemetry he is off Cardizem drip and he is switched to p.o. Cardizem 30 mg p.o. every 6 hours. His latest heart rate is 65. Patient seen resting in bed comfortably he is awake alert oriented. He is not in pain or any form of distress. Patient is stable enough to go home. I will send him home with Cardizem 30 mg p.o. every 6 hours and I will continue the rest of his medication. Physical Exam Vital Signs: Temp Pulse Resp BP Pulse Ox 97.8 F 58 L 18 141/68 H 100 12/10/18 07:29 12/10/18 07:29 12/10/18 07:29 12/10/18 07:29 12/10/18 07:29 Intake & Output 12/09/18 12/10/18 12/11/18 06:59 06:59 06:59 Intake Total 2009 500 Output Total 300 Balance 2009 200 Weight 49.3 kg 50.1 kg General appearance: PRESENT: thin Head exam: PRESENT: atraumatic Eye exam: PRESENT: conjunctiva pink Neck exam: ABSENT: carotid bruit, JVD, lymphadenopathy, thyromegaly Respiratory exam: PRESENT: clear to auscultation keith. ABSENT: rales, rhonchi, wheezes Cardiovascular exam: PRESENT: irregular rhythm Neurological exam: PRESENT: alert, awake, oriented to time, oriented to situation Results Laboratory Results: 12/10/18 06:30 12/10/18 06:30 12/10/18 12/10/18 06:30 06:30 WBC 5.4 RBC 4.01 L Hgb 11.9 L Hct 36.4 L MCV 91 MCH 29.6 MCHC 32.6 RDW 14.9 H Plt Count 221 Seg Neutrophils % 64.0 Lymphocytes % 22.9 Monocytes % 8.8 Eosinophils % 3.5 Basophils % 0.8 Absolute Neutrophils 3.5 Absolute Lymphocytes 1.2 Absolute Monocytes 0.5 Absolute Eosinophils 0.2 Absolute Basophils 0.0 Sodium 138.7 Potassium 4.5 Chloride 106 Carbon Dioxide 27 Anion Gap 6 BUN 24 H Creatinine 0.85 Est GFR ( Amer) > 60 Est GFR (Non-Af Amer) > 60 Glucose 144 H Calcium 9.8 Magnesium 1.7 12/08/18 12/08/18 12/08/18 14:06 14:06 18:14 Creatine Kinase 62 CK-MB (CK-2) 2.36 Troponin I 0.045 0.061 12/09/18 12/09/18 07:26 18:00 Creatine Kinase CK-MB (CK-2) Troponin I 0.060 0.047 Impressions: Chest X-Ray 12/08/18 14:36 IMPRESSION: EMPHYSEMATOUS CHANGE WITHOUT EVIDENCE OF ACUTE CARDIOPULMONARY PROCESS. Qualifiers - * PATIENT BEING DISCHARGED WITH ANY OF THE FOLLOWING DIAGNOSIS: No Acute Heart Failure Is this a Heart Failure Patient?: No
[2018-12-10 11:51] VITALS: BP 150/73
== END 2018-12-10 12:53 | disposition home or self-care (01) ==
LOC: ER 14:35 → INTOOBSV 18:06 → EH 18:06 → 3W 21:04 → 4W 12-09 21:55
PROVIDERS: ADMIT Internal Medicine; ATTEND Internal Medicine
DX: I48.0 Paroxysmal atrial fibrillation (principal); J44.9 Chronic obstructive pulmonary disease, unspecified; I25.10 Atherosclerotic heart disease of native coronary artery without angina pectoris; E78.5 Hyperlipidemia, unspecified; R53.1 Weakness; R42 Dizziness and giddiness; R11.0 Nausea; R35.8 Other polyuria; I48.92 Unspecified atrial flutter; E11.9 Type 2 diabetes mellitus without complications; F43.10 Post-traumatic stress disorder, unspecified; I69.351 Hemiplegia and hemiparesis following cerebral infarction affecting right dominant side; F17.210 Nicotine dependence, cigarettes, uncomplicated; F41.9 Anxiety disorder, unspecified; I45.10 Unspecified right bundle-branch block; I44.5 Left posterior fascicular block; Z60.2 Problems related to living alone; Z85.038 Personal history of other malignant neoplasm of large intestine; Z98.890 Other specified postprocedural states; Z95.5 Presence of coronary angioplasty implant and graft; Z79.82 Long term (current) use of aspirin; Z79.4 Long term (current) use of insulin; Z90.49 Acquired absence of other specified parts of digestive tract; Z79.02 Long term (current) use of antithrombotics/antiplatelets
CPT/HCPCS: 93005; 96376; 99291; 96375; 96365; 96366; 36415 ×3; 84439; 82553; 82962 ×3; 82550; 83735 ×2; 84443; 85025 ×3; 80048 ×2; 80053; 84484 ×2; 84481; 83036; 71045; 93010; G0378 ×3; A9270 ×19; J1644 ×3; J3490 ×2; J2060; J7030; J1815

== ENCOUNTER 2019-01-13 18:21 | Emergency (ER) | payer MEDICARE, OTHER ==
--- NOTE | 2019-01-13 18:40 | ER Document Report ---
ED Medical Screen (RME) - General Chief Complaint: Weakness Stated Complaint: WEAKNESS Time Seen by Provider: 01/13/19 18:30 Mode of Arrival: Medic Information source: Patient Notes: 78-year-old male presented to ED for complaint of "tired sick headache but no real pain anywhere except for headache. He came via EMS because he does not feel good. States is been sick since yesterday. Denies any nausea vomiting or diarrhea. Patient was alert oriented respirations regular and unlabored . I have greeted and performed a rapid initial assessment of this patient. A comprehensive ED assessment and evaluation of the patient, analysis of test results and completion of medical decision making process will be conducted by an additional ED providers. Dictation of this chart was performed using voice recognition software; therefore, there may be some unintended grammatical errors. TRAVEL OUTSIDE OF THE [place] IN LAST 30 DAYS: No - Related Data Allergies/Adverse Reactions: phenobarbital [Phenobarbital] Allergy (Severe, Verified 01/13/19 18:22) Hallucinations topiramate [Topiramate] Allergy (Severe, Verified 01/13/19 18:22) hallucination Past Medical History - Past Medical History Cardiac Medical History: Reports: Hx Coronary Artery Disease, Hx Hype rcholesterolemia, Hx Heart Murmur Denies: Hx Atrial Fibrillation, Hx Congestive Heart Failure, Hx Heart Attack, Hx Hypertension, Hx Peripheral Vascular Disease, Hx Pulmonary Embolism Pulmonary Medical History: Reports: Hx Bronchitis, Hx COPD, Hx Pneumonia - hx of Denies: Hx Asthma, Hx Respiratory Failure, Hx Sleep Apnea, Hx Tuberculosis Neurological Medical History: Reports: 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 Denies: Hx Seizures Endocrine Medical History: Reports: Hx Diabetes Mellitus Type 1, Hx Diabetes Mellitus Type 2, Hx Hyperthyroidism, Hx Hypothyroidism Renal/ Medical History: Denies: Hx Benign Prostatic Hyperplasia, Hx End Stage Renal Disease, Hx Kidney Stones, Hx Peritoneal Dialysis Malignancy Medical History: Reports Hx Colorectal Cancer, Denies Hx Leukemia, Denies Hx Lung Cancer GI Medical History: Reports: Hx Hiatal Hernia, Hx Ulcer. Denies: Hx Crohn's Disease, Hx Gastroesophageal Reflux Disease, Hx Hepatitis, Hx Irritable Bowel, Hx Liver Failure, Hx Pancreatitis Musculoskeltal Medical History: Reports Hx Arthritis - osteoarthritis, Denies Hx Fibromyalgia, Denies Hx Multiple Sclerosis, Denies Hx Muscular Dystrophy Psychiatric Medical History: Reports: Hx Depression, Hx Post Traumatic Stress Disorder - anxiety Denies: Hx Bipolar Disorder, Hx Dementia, Hx Schizophrenia Traumatic Medical History: Denies: Hx Fractures Infectious Medical History: Denies: Hx Hepatitis, Hx HIV Past Surgical History: Reports: Hx Abdominal Surgery - colostomy, hiatal hernia, Hx Appendectomy, Hx Bowel Surgery - colon resection with iliostomy, Hx Cardiac Catheterization, Hx Coronary Stent - x 3, Hx Herniorrhaphy - hiatal, Hx Tonsillectomy. Denies: Hx Cholecystectomy, Hx Colostomy, Hx Coronary Artery Bypass Graft, Hx Gastric Bypass Surgery, Hx Open Heart Surgery, Hx Pacemaker - Immunizations Hx Diphtheria, Pertussis, Tetanus Vaccination: Yes History of Influenza Vaccine for 05/2017 - 10/2017 Season: No Physical Exam - Vital signs Vitals: Temp Pulse Resp BP Pulse Ox 98.1 F 57 L 16 158/66 H 100 01/13/19 18:27 01/13/19 18:27 01/13/19 18:27 01/13/19 18:27 01/13/19 18:27 Course - Vital Signs Vital signs: Temp Pulse Resp BP Pulse Ox 98.1 F 57 L 16 158/66 H 100 01/13/19 18:27 01/13/19 18:27 01/13/19 18:27 01/13/19 18:27 01/13/19 18:27
[2019-01-13 19:07] LABS: ABSOLUTE BASOPHILS # (AUTO) 0.1 10^3/uL (0.0-0.2); ABSOLUTE EOSINOPHILS # (AUTO) 0.2 10^3/uL (0.0-0.6); ABSOLUTE LYMPHOCYTES (AUTO) 1.3 10^3/uL (0.5-4.7); ABSOLUTE MONOCYTES (AUTO) 0.6 10^3/uL (0.1-1.4); ABSOLUTE NEUT (AUTO) 4.1 10^3/uL (1.7-8.2); EOSINOPHILS % (AUTO) 2.5 % (0-6); HEMATOCRIT 39.9 % (37.9-51.0); HEMOGLOBIN 13.3 g/dL (13.5-17.0); LYMPHOCYTES % (AUTO) 20.9 % (13-45); MEAN CORPUSCULAR HEMOGLOBIN 30.5 pg (27.0-33.4); MEAN CORPUSCULAR HGB CONC 33.5 g/dL (32.0-36.0); MEAN CORPUSCULAR VOLUME 91 fl (80-97); PLATELET COUNT 300 10^3/uL (150-450); RED BLOOD COUNT 4.38 10^6/uL (4.35-5.55); RED CELL DISTRIBUTION WIDTH 13.9 % (11.5-14.0); SEGMENTED NEUTROPHILS % (AUTO) 66.6 % (42-78); TOTAL CELLS COUNTED % (AUTO) 100 %; WHITE BLOOD COUNT 6.2 10^3/uL (4.0-10.5)
[2019-01-13 19:13] LABS: APPEARANCE,URINE CLEAR; BILIRUBIN,URINE NEGATIVE (NEGATIVE); COLOR,URINE YELLOW; GLUCOSE, URINE >=500 mg/dL (NEGATIVE); KETONES,URINE 20 mg/dL (NEGATIVE); LEUKOCYTE ESTERASE,URINE NEGATIVE (NEGATIVE); NITRITE,URINE NEGATIVE (NEGATIVE); PROTEIN,URINE NEGATIVE (NEGATIVE); URINE SPECIFIC GRAVITY 1.026; UROBILINOGEN,URINE NEGATIVE mg/dL (<2.0)
[2019-01-13 19:24] LABS: ALANINE AMINOTRANSFERASE 14 U/L (21-72); ALBUMIN 4.1 g/dL (3.5-5.0); ALKALINE PHOSPHATASE 74 U/L (38-126); ANION GAP 9 (5-19); ASPARTATE AMINO TRANSFERASE 16 U/L (17-59); BILIRUBIN,DIRECT 0.3 mg/dL (0.0-0.4); BILIRUBIN,TOTAL 0.5 mg/dL (0.2-1.3); BLOOD UREA NITROGEN 17 mg/dL (7-20); CALCIUM 9.8 mg/dL (8.4-10.2); CARBON DIOXIDE 26 mmol/L (22-30); CHLORIDE 100 mmol/L (98-107); GLUCOSE 399 mg/dL (75-110); LIPASE 36.2 U/L (23-300); POTASSIUM 4.8 mmol/L (3.6-5.0); SODIUM 135.2 mmol/L (137-145); TOTAL PROTEIN 6.9 g/dL (6.3-8.2)
--- NOTE | 2019-01-13 21:12 | ER Document Report ---
ED General - General Chief Complaint: Weakness Stated Complaint: WEAKNESS Time Seen by Provider: 01/13/19 18:30 Primary Care Provider: MILADYS ORDOÑEZ MD [ACTIVE STAFF] - Follow up in 3-5 days (primary care.) Mode of Arrival: Medic Notes: Patient is a 78-year-old male with diabetes that presents to the emergency department for chief complaint of generalized weakness. Patient states is overa ll not been feeling well some mild shortness of breath and generalized weakness over the past several days. He states his appetite has been poor recently, because he has some issues with swallowing, but he supposed to follow-up with grocery sacker regarding this. He also reports that her conditioner fell on his right arm few days ago as well, EMS came to see him, and management, but he has not been changing properly since then. He has not noticed any fevers, chills, night with, chest pain, shortness of breath, nausea or vomiting. He complains of some mild pain in his right arm, describes it as a 1 out of 10 at this time as an ache. Denies any numbness, weakness or tingling. Past Medical History: Diabetes, hypertension, COPD Past Surgical History: PCI with stenting Social History: Admits to smoking cigarettes, denies alcohol or drug use Family History: Reviewed and noncontributory for presenting illness Allergies: Reviewed, see documented allergy list. REVIEW OF SYSTEMS: Other than noted above, the 12 point review of systems was reviewed with the patient and were negative, all pertinent findings are included in the HPI. PHYSICAL EXAMINATION: Vital signs reviewed, nursing noted reviewed. GENERAL: Elderly, frail male, no acute distress HEAD: Atraumatic, normocephalic. EYES: Eyes appear normal, extraocular movements intact, sclera anicteric, conjunctiva are normal. ENT: nares patent, oropharynx clear without exudates. Moist mucous membranes. NECK: Normal range of motion, supple without lymphadenopathy LUNGS: Breath sounds clear to auscultation bilaterally and equal. No wheezes rales or rhonchi. HEART: Regular rate and rhythm without murmurs ABDOMEN: Soft, nontender, normoactive bowel sounds. No rebound, guarding, or rigidity. No masses appreciated. EXTREMITIES: good range of motion, no pitting or edema. The patient's right forearm, and management of that was removed, demonstrated what appeared to be multiple skin tears, now with some pus drainage and granulation tissue noted, with erythema, concerning for cellulitis. Patient in good range of motion, of the upper extremity otherwise, there is no noted lymphangitis or axillary lymphadenopathy. NEUROLOGICAL: No focal neurological deficits. Moves all extremities spontaneously Motor and sensory grossly intact on exam. PSYCH: Normal mood, normal affect. SKIN: Warm, Dry, normal turgor, TRAVEL OUTSIDE OF THE [place] IN LAST 30 DAYS: No - Related Data Allergies/Adverse Reactions: phenobarbital [Phenobarbital] Allergy (Severe, Verified 01/13/19 18:22) Hallucinations topiramate [Topiramate] Allergy (Severe, Verified 01/13/19 18:22) hallucination Past Medical History - General Information source: Patient - Social History Smoking Status: Current Every Day Smoker Frequency of alcohol use: None Drug Abuse: None Family History: Reviewed & Not Pertinent, Hyperlipidemia Patient has suicidal ideation: No Patient has homicidal ideation: No - Past Medical History Cardiac Medical History: Reports: Hx Coronary Artery Disease, Hx Hypercholesterolemia, Hx Heart Murmur Denies: Hx Atrial Fibrillation, Hx Congestive Heart Failure, Hx Heart Attack, Hx Hypertension, Hx Peripheral Vascular Disease, Hx Pulmonary Embolism Pulmonary Medical History: Reports: Hx Bronchitis, Hx COPD, Hx Pneumonia - hx of Denies: Hx Asthma, Hx Respiratory Failure, Hx Sleep Apnea, Hx Tuberculosis Neurological Medical History: Reports: 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 Denies: Hx Seizures Endocrine Medical History: Reports: Hx Diabetes Mellitus Type 1, Hx Diabetes Mellitus Type 2, Hx Hyperthyroidism, Hx Hypothyroidism Renal/ Medical History: Denies: Hx Benign Prostatic Hyperplasia, Hx End Stage Renal Disease, Hx Kidney Stones, Hx Peritoneal Dialysis Malignancy Medical History: Reports Hx Colorectal Cancer, Denies Hx Leukemia, Denies Hx Lung Cancer GI Medical History: Reports: Hx Hiatal Hernia, Hx Ulcer. Denies: Hx Crohn's Disease, Hx Gastroesophageal Reflux Disease, Hx Hepatitis, Hx Irritable Bowel, Hx Liver Failure, Hx Pancreatitis Musculoskeletal Medical History: Reports Hx Arthritis - osteoarthritis, Denies Hx Fibromyalgia, Denies Hx Multiple Sclerosis, Denies Hx Muscular Dystrophy Psychiatric Medical History: Reports: Hx Depression, Hx Post Traumatic Stress Disorder - anxiety Denies: Hx Bipolar Disorder, Hx Dementia, Hx Schizophrenia Traumatic Medical History: Denies: Hx Fractures Infectious Medical History: Denies: Hx Hepatitis, Hx HIV Past Surgical History: Reports: Hx Abdominal Surgery - colostomy, hiatal hernia, Hx Appendectomy, Hx Bowel Surgery - colon resection with iliostomy, Hx Cardiac Catheterization, Hx Cardiac Surgery - x3 stents, Hx Coronary Stent - x 3, Hx Herniorrhaphy - hiatal, Hx Tonsillectomy. Denies: Hx Cholecystectomy, Hx Colostomy, Hx Coronary Artery Bypass Graft, Hx Gastric Bypass Surgery, Hx Open Heart Surgery, Hx Pacemaker - Immunizations Hx Diphtheria, Pertussis, Tetanus Vaccination: Yes Hx Pneumococcal Vaccination: 05/03/12 Physical Exam - Vital signs Vitals: Temp Pulse Resp BP Pulse Ox 98.1 F 57 L 16 158/66 H 100 01/13/19 18:27 01/13/19 18:27 01/13/19 18:27 01/13/19 18:27 01/13/19 18:27 Course - Re-evaluation Re-evalutation: Patient seen and examined vital signs reviewed. Laboratory data and/or imaging were ordered as appropriate for the patient's presenting symptoms and complaint, with consideration of any critical or life threatening conditions that may be associated with their obtained history and exam as noted above. Patient was treated with wound care of his arm, and given a dose of IV doxycycline and IV fluids Results were reviewed when available and demonstrated hyperglycemia with a glucose of 399, no leukocytosis, blood work otherwise is essentially unremarka ble. The patient was re-evaluated and was stable and improved Evaluation was most consistent with cellulitis of the right forearm, having, generalized weakness, advised follow-up with his primary care given prescription for doxycycline Results were discussed with the patient at this point, after careful consideration I feel that that patient can be discharged from the emergency department, the patient was educated treatments and reasons to return to the emergency department based on their presumed diagnosis as noted above, they were advised to followup with a primary care physician in 2-3 days. Patient was agreeable to plan of care. *Note is created using voice recognition software and may contain spelling, syntax or grammatical errors. Laboratory 01/13/19 01/13/19 01/13/19 18:45 18:45 18:45 WBC 6.2 RBC 4.38 Hgb 13.3 L Hct 39.9 MCV 91 MCH 30.5 MCHC 33.5 RDW 13.9 Plt Count 300 Seg Neutrophils % 66.6 Lymphocytes % 20.9 Monocytes % 9.0 Eosinophils % 2.5 Basophils % 1.0 Absolute Neutrophils 4.1 Absolute Lymphocytes 1.3 Absolute Monocytes 0.6 Absolute Eosinophils 0.2 Absolute Basophils 0.1 Sodium 135.2 L Potassium 4.8 Chloride 100 Carbon Dioxide 26 Anion Gap 9 BUN 17 Creatinine 0.80 Est GFR ( Amer) > 60 Est GFR (Non-Af Amer) > 60 Glucose 399 H Calcium 9.8 Total Bilirubin 0.5 Direct Bilirubin 0.3 Neonat Total Bilirubin Not Reportable Neonat Direct Bilirubin Not Reportable Neonat Indirect Bili Not Reportable AST 16 L ALT 14 L Alkaline Phosphatase 74 Total Protein 6.9 Albumin 4.1 Lipase 36.2 Urine Color YELLOW Urine Appearance CLEAR Urine pH 6.0 Ur Specific [employer] 1.026 Urine Protein NEGATIVE Urine Glucose (UA) >=500 H Urine Ketones 20 H Urine Blood NEGATIVE Urine Nitrite NEGATIVE Urine Bilirubin NEGATIVE Urine Urobilinogen NEGATIVE Ur Leukocyte Esterase NEGATIVE Urine WBC (Auto) 1 Urine RBC (Auto) 0 Squamous Epi Cells Auto <1 Urine Mucus (Auto) RARE Urine Ascorbic Acid NEGATIVE - Vital Signs Vital signs: Temp Pulse Resp BP Pulse Ox 97.9 F 49 L 16 163/72 H 100 01/13/19 22:58 01/13/19 22:58 01/13/19 22:58 01/13/19 22:58 01/13/19 22:58 - Laboratory Result Diagrams: 01/13/19 18:45 01/13/19 18:45 Laboratory results interpreted by me: 01/13/19 01/13/19 01/13/19 18:45 18:45 18:45 Hgb 13.3 L Sodium 135.2 L Glucose 399 H AST 16 L ALT 14 L Urine Glucose (UA) >=500 H Urine Ketones 20 H Procedures - Additional Procedures Dressing change Additional Procedures: Dressing Change - wound care to the right forearm, prior dressing removed, wound cleaned and dressed. Discharge - Discharge Clinical Impression: Hyperglycemia Cellulitis Qualifiers: Site of cellulitis: extremity Site of cellulitis of extremity: upper extremity Laterality: right Qualified Code(s): L03.113 - Cellulitis of right upper limb Condition: Stable Disposition: HOME, SELF-CARE Instructions: Cellulitis ([facility]) Additional Instructions: Please keep your wound clean and dry, please complete the entire course of antibiotics as prescribed, please follow-up with your primary care physician, one has been listed with your paperwork if you do not have one, please keep it on your blood sugars at home as they are running a little bit higher today, which may be 1 of the reasons why you are not feeling well, but they may come down with treatment of your infection. Please keep yourself hydrated, drink plenty of fluids throughout the day. Prescriptions: RX: Doxycycline Hyclate 100 mg PO BID #18 capsule Referrals: MILADYS ORDOÑEZ MD [ACTIVE STAFF] - Follow up in 3-5 days (primary care.)
[2019-01-13] MEDS ORDERED: NORMAL SALINE 500 ML IV ONE (21:29)
[2019-01-13] MEDS ORDERED: DOXYCYCLINE HYCLATE INJ 100 MG VIAL IV ONE (21:30)
[2019-01-13] MEDS ORDERED: ONDANSETRON HCL INJ/PF 4 MG/2 ML SDV IV ONE (21:30)
[2019-01-13 23:01] VITALS: BP 163/72
== END 2019-01-13 23:05 | disposition home or self-care (01) ==
LOC: ER 18:21
DX: L03.113 Cellulitis of right upper limb (principal); E11.65 Type 2 diabetes mellitus with hyperglycemia; R53.1 Weakness; R06.02 Shortness of breath; R63.0 Anorexia; R13.10 Dysphagia, unspecified; I10 Essential (primary) hypertension; J44.9 Chronic obstructive pulmonary disease, unspecified; F17.210 Nicotine dependence, cigarettes, uncomplicated; I25.10 Atherosclerotic heart disease of native coronary artery without angina pectoris
CPT/HCPCS: 99285; 96375; 96365; 36415; 83690; 85025; 80053; 81001; J3490; J2405; J7040

== ENCOUNTER 2019-01-21 22:04 | Emergency (ER) | payer MEDICARE, OTHER ==
[2019-01-21 22:32] LABS: ABSOLUTE MONOCYTES (AUTO) 0.5 10^3/uL (0.1-1.4); EOSINOPHILS % (AUTO) 0.6 % (0-6); HEMOGLOBIN 13.5 g/dL (13.5-17.0); TOTAL CELLS COUNTED % (AUTO) 100 %
[2019-01-21 22:38] LABS: ABSOLUTE LYMPHOCYTES (AUTO) 1.9 10^3/uL (0.5-4.7); BASOPHILS % (AUTO) 0.2 % (0-2); HEMATOCRIT 41.1 % (37.9-51.0); LYMPHOCYTES % (AUTO) 25.4 % (13-45); MEAN CORPUSCULAR HEMOGLOBIN 30.6 pg (27.0-33.4); MEAN CORPUSCULAR HGB CONC 32.8 g/dL (32.0-36.0); MEAN CORPUSCULAR VOLUME 94 fl (80-97); MONOCYTES % (AUTO) 6.9 % (3-13); PLATELET COUNT 241 10^3/uL (150-450); RED BLOOD COUNT 4.39 10^6/uL (4.35-5.55); SEGMENTED NEUTROPHILS % (AUTO) 66.9 % (42-78); WHITE BLOOD COUNT 7.5 10^3/uL (4.0-10.5)
[2019-01-21 22:48] LABS: ALANINE AMINOTRANSFERASE 16 U/L (21-72); ALBUMIN 4.4 g/dL (3.5-5.0); ALKALINE PHOSPHATASE 78 U/L (38-126); ANION GAP 19 (5-19); ASPARTATE AMINO TRANSFERASE 24 U/L (17-59); BILIRUBIN,DIRECT 0.4 mg/dL (0.0-0.4); BILIRUBIN,TOTAL 0.5 mg/dL (0.2-1.3); BLOOD UREA NITROGEN 33 mg/dL (7-20); CALCIUM 10.5 mg/dL (8.4-10.2); CARBON DIOXIDE 15 mmol/L (22-30); CHLORIDE 99 mmol/L (98-107); POTASSIUM 5.1 mmol/L (3.6-5.0); TOTAL PROTEIN 7.2 g/dL (6.3-8.2)
[2019-01-21 22:50] LABS: APPEARANCE,URINE CLEAR; BILIRUBIN,URINE NEGATIVE (NEGATIVE); COLOR,URINE STRAW; GLUCOSE, URINE >=500 mg/dL (NEGATIVE); KETONES,URINE 80 mg/dL (NEGATIVE); LEUKOCYTE ESTERASE,URINE NEGATIVE (NEGATIVE); NITRITE,URINE NEGATIVE (NEGATIVE); PROTEIN,URINE NEGATIVE (NEGATIVE); URINE SPECIFIC GRAVITY 1.024; UROBILINOGEN,URINE NEGATIVE mg/dL (<2.0)
[2019-01-21 22:55] LABS: GLUCOSE 483 mg/dL (75-110)
--- NOTE | 2019-01-21 23:32 | RADIOLOGY REPORT (SQ) ---
EXAM DESCRIPTION: XR CHEST 1 VIEW COMPLETED DATE/TME: 01/21/2019 22:25 CLINICAL HISTORY: 78 years, Male, sob COMPARISON: Chest x-ray dated 12/08/2018 NUMBER OF VIEWS: One view. TECHNIQUE: A single frontal chest radiograph was performed (AP portable upright) LIMITATIONS: None. FINDINGS: The lungs are hyperexpanded with decrease pulmonary markings. A 1 cm ovoid structure projects over the RIGHT midlung is new since the prior study. This structure is incomplete rim. The lungs are otherwise clear. The costophrenic sulci are sharp. The cardiac silhouette, hilar regions, trachea, soft tissues and bony structures are unremarkable aside from old rib fractures and degenerative changes. Some costochondral dictation is also suspected. The aortic arch is calcified. No significant change since the prior study. IMPRESSION: Severe emphysema. No acute cardiopulmonary disease. 1 cm incomplete rimmed ovoid structure is newly seen projecting over the RIGHT midlung. A new pulmonary nodule is not suspected given the incomplete rim and new visualization since the prior chest x-ray one month ago. Costochondral calcification could have this appearance. However, recommend attention on any follow-up chest CT for confirmation given the patient's underlying severe emphysema. Aortic atherosclerosis. copyright 2010 [employer] All Rights Reserved
[2019-01-21] MEDS ORDERED: NORMAL SALINE 1000 ML 500 ML IV ONE (23:44)
[2019-01-21] MEDS ORDERED: INSULIN REG, HUMAN 100 UNIT/ML 3 ML VIAL (PYX) SUBCUT ONE (23:44)
[2019-01-22] MEDS ORDERED: OLANZAPINE 2.5 MG TABLET PO ONE (01:17)
--- NOTE | 2019-01-22 01:26 | ER Document Report ---
ED General - General Chief Complaint: High Blood Sugar Stated Complaint: SHORTNESS OF BREATH Time Seen by Provider: 01/21/19 22:15 Notes: Patient is a 78-year-old male with a past medical history of COPD, current tobacco abuse, chronic malnutrition, presents by EMS due to concerns of generalized weakness. Contrary to triage assessment the patient is denying any component or shortness of breath. Patient states that he always feels this week and that there is otherwise nothing new or different today. He states that he does still drive a vehicle, so ambulates without a walker or cane. Does live independently by himself. The patient states that he has difficulty swallowing, but this does make it so that he takes very little p.o. intake and the patient is concerned that he is continued to lose weight. He did see his primary care doctor several days ago but states that he did not bring this up while at the appointment. Symptoms are characterized as being global fatigue and weakness. Severe in nature. Not improved or worsened by anything. Denies focal weakness. No fever, cough, chest pain or shortness of breath. Patient is unable to identify what made him contact 911 to come to the emergency department today other than that he feels he has weakness is continuing. TRAVEL OUTSIDE OF THE [place] IN LAST 30 DAYS: No - Related Data Allergies/Adverse Reactions: phenobarbital [Phenobarbital] Allergy (Severe, Verified 01/13/19 18:22) Hallucinations topiramate [Topiramate] Allergy (Severe, Verified 01/13/19 18:22) hallucination Past Medical History - General Information source: Patient - Social History Smoking Status: Current Every Day Smoker Chew tobacco use (# tins/day): No Frequency of alcohol use: None Drug Abuse: None Lives with: Alone Family History: Reviewed & Not Pertinent, Hyperlipidemia Patient has suicidal ideation: No Patient has homicidal ideation: No - Past Medical History Cardiac Medical History: Reports: Hx Coronary Artery Disease, Hx Hypercholesterolemia, Hx Heart Murmur Denies: Hx Atrial Fibrillation, Hx Congestive Heart Failure, Hx Heart Attack, Hx Hypertension, Hx Peripheral Vascular Disease, Hx Pulmonary Embolism Pulmonary Medical History: Reports: Hx Bronchitis, Hx COPD, Hx Pneumonia - hx of Denies: Hx Asthma, Hx Respiratory Failure, Hx Sleep Apnea, Hx Tuberculosis Neurological Medical History: Reports: 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 Denies: Hx Seizures Endocrine Medical History: Reports: Hx Diabetes Mellitus Type 1, Hx Diabetes Mellitus Type 2, Hx Hyperthyroidism, Hx Hypothyroidism Renal/ Medical History: Denies: Hx Benign Prostatic Hyperplasia, Hx End Stage Renal Disease, Hx Kidney Stones, Hx Peritoneal Dialysis Malignancy Medical History: Reports Hx Colorectal Cancer, Denies Hx Leukemia, Denies Hx Lung Cancer GI Medical History: Reports: Hx Hiatal Hernia, Hx Ulcer. Denies: Hx Crohn's Disease, Hx Gastroesophageal Reflux Disease, Hx Hepatitis, Hx Irritable Bowel, Hx Liver Failure, Hx Pancreatitis Musculoskeletal Medical History: Reports Hx Arthritis - osteoarthritis, Denies H x Fibromyalgia, Denies Hx Multiple Sclerosis, Denies Hx Muscular Dystrophy Psychiatric Medical History: Reports: Hx Depression, Hx Post Traumatic Stress Disorder - anxiety Denies: Hx Bipolar Disorder, Hx Dementia, Hx Schizophrenia Traumatic Medical History: Denies: Hx Fractures Infectious Medical History: Denies: Hx Hepatitis, Hx HIV Past Surgical History: Reports: Hx Abdominal Surgery - colostomy, hiatal hernia, Hx Appendectomy, Hx Bowel Surgery - colon resection with iliostomy, Hx Cardiac Catheterization, Hx Cardiac Surgery - x3 stents, Hx Coronary Stent - x 3, Hx Herniorrhaphy - hiatal, Hx Tonsillectomy. Denies: Hx Cholecystectomy, Hx Colostomy, Hx Coronary Artery Bypass Graft, Hx Gastric Bypass Surgery, Hx Open Heart Surgery, Hx Pacemaker - Immunizations Hx Diphtheria, Pertussis, Tetanus Vaccination: Yes Hx Pneumococcal Vaccination: 05/03/12 Review of Systems - Review of Systems Notes: Constitutional: Negative for fever. Positive for generalized weakness HENT: Negative for sore throat. Eyes: Negative for visual changes. Cardiovascular: Negative for chest pain. Respiratory: Negative for shortness of breath. Gastrointestinal: Negative for abdominal pain, vomiting or diarrhea. Genitourinary: Negative for dysuria. Musculoskeletal: Negative for back pain. Skin: Negative for rash. Neurological: Negative for headaches, weakness or numbness. 10 point ROS negative except as marked above and in HPI. Physical Exam - Vital signs Vitals: Temp Pulse Resp BP Pulse Ox 97.9 F 73 19 147/78 H 98 01/21/19 22:05 01/21/19 22:05 01/21/19 22:05 01/21/19 22:05 01/21/19 22:05 Interpretation: Hypertensive Notes: PHYSICAL EXAMINATION: GENERAL: Frail, appears older than stated age, somewhat cachectic HEAD: Atraumatic, normocephalic. EYES: Pupils equal round and reactive to light, extraocular movements intact, sclera anicteric, conjunctiva are normal. ENT: nares patent, oropharynx clear without exudates. Moderately dry mucous membranes. NECK: Normal range of motion, supple without lymphadenopathy LUNGS: Breath sounds clear to auscultation bilaterally and equal. No wheezes rales or rhonchi. HEART: Regular rate and rhythm without murmurs ABDOMEN: Soft, nontender, normoactive bowel sounds. No guarding, no rebound. No masses appreciated. EXTREMITIES: Normal range of motion, no pitting or edema. No cyanosis. NEUROLOGICAL: Face symmetric. Tongue protrudes midline. Extraocular motions intact. Pupils are 2 mm and equally reactive. Normal speech. 5 out of 5 strength in both the distal and proximal upper and lower extremities bilaterally. Sensation is grossly intact throughout. Finger to nose testing normal. Pronator drift normal. PSYCH: Normal mood, normal affect. SKIN: Warm, Dry, normal turgor, no rashes or lesions noted. Course - Re-evaluation Re-evalutation: 01/22/19 01:23 Patient presents with concerns of generalized weakness not new or different, has been ongoing for at least 6 months by his report. Patient is actually unable to identify to me exactly why he came to the emergency department today and notes that symptoms are completely unchanged from previous. Contrary to triage assessment he adamantly denies shortness of breath as part of the reasoning for presentation today. His labs do show a troponin elevation in indeterminate range although this is his baseline based on review of previous troponin assay testing and again patient denies any chest pain. The patient is quite emaciated, states it is difficult for him to swallow and again this is not new or different. I have advised him that he needs a swallowing study, needs to have nutritional consultation and needs to follow with his primary doctor regarding his poor weight and poor nutritional intake which are likely than primary contributing factor to his global weakness. He has no focal neurologic deficits on examination. The patient is requesting something for anxiety while he is here and will be given his low dose of olanzapine. Do not suspect any acute life-threatening etiology as the cause of patient's presentation today. At this time will discharge with return precautions and follow-up recommendations. Verbal discharge instructions given a the bedside and opportunity for questions given. Medication warnings reviewed. Patient is in agreement with this plan and has verbalized understanding of return precautions and the need for primary care follow-up in the next 24-72 hours. - Vital Signs Vital signs: Temp Pulse Resp BP Pulse Ox 98.7 F 73 19 149/68 H 83 L 01/22/19 01:36 01/21/19 22:05 01/22/19 01:36 01/22/19 01:36 01/22/19 01:36 - Laboratory Result Diagrams: 01/21/19 22:10 01/21/19 22:10 Laboratory results interpreted by me: 01/21/19 01/21/19 01/21/19 22:10 22:12 22:40 Sodium 133.0 L Potassium 5.1 H Carbon Dioxide 15 L BUN 33 H Glucose 483 H* POC Glucose 430 H* Calcium 10.5 H ALT 16 L Urine Glucose (UA) >=500 H Urine Ketones 80 H - Diagnostic Test Radiology reviewed: Image reviewed, Reports reviewed Radiology results interpreted by me: 01/22/19 01:24 Chest x-ray: Diffuse emphysema - EKG Interpretation by Me Additional EKG results interpreted by me: 01/22/19 01:24 Sinus rhythm, rate 75, no ST elevations or depressions. Unchanged from previous exam. Right bundle branch block present. Discharge - Discharge Clinical Impression: Insulin dependent diabetes mellitus, Tobacco dependence, Elevated troponin COPD (chronic obstructive pulmonary disease) Qualifiers: COPD type: unspecified COPD Qualified Code(s): J44.9 - Chronic obstructive pulmonary disease, unspecified Malnutrition Qualifiers: Malnutrition type: unspecified type Qualified Code(s): E46 - Unspecified protein-calorie malnutrition Condition: Stable Disposition: HOME, SELF-CARE Additional Instructions: As we discussed, you need to follow-up with your primary doctor regarding her difficulty swallowing and inability to take good nutrition which is likely contributing to your weakness. You need to return to the emergency department immediately if you have worsening of your symptoms, chest pain, shortness of breath, fever, pass out, or have any other symptoms that are worrisome to you.
[2019-01-22 02:00] VITALS: BP 149/68
--- NOTE | 2019-01-22 12:12 | EKG REPORT ---
SEVERITY:- ABNORMAL ECG - UNKNOWN RHYTHM, IRREGULAR RATE 63-87 RBBB AND LPFB CONSIDER LEFT VENTRICULAR HYPERTROPHY PROBABLE INFERIOR INFARCT, AGE INDETERMINATE : Confirmed by: Karina Dlae MD 22-Jan-2019 12:12:00
== END 2019-01-22 01:59 | disposition home or self-care (01) ==
LOC: ER 22:04
DX: E46 Unspecified protein-calorie malnutrition (principal); J43.9 Emphysema, unspecified; R74.8 Abnormal levels of other serum enzymes; R53.1 Weakness; R13.10 Dysphagia, unspecified; R53.83 Other fatigue; I45.10 Unspecified right bundle-branch block; F41.9 Anxiety disorder, unspecified; F17.200 Nicotine dependence, unspecified, uncomplicated; I25.10 Atherosclerotic heart disease of native coronary artery without angina pectoris; E11.9 Type 2 diabetes mellitus without complications; Z79.4 Long term (current) use of insulin; Z88.8 Allergy status to other drugs, medicaments and biological substances; Z88.6 Allergy status to analgesic agent; Z85.048 Personal history of other malignant neoplasm of rectum, rectosigmoid junction, and anus; Z95.5 Presence of coronary angioplasty implant and graft
CPT/HCPCS: 93005; 99285; 96360; 36415; 82962; 85025; 80053; 81001; 84484; 71045; 93010; A9270 ×2; J7030; J1815; J3490

== ENCOUNTER 2019-01-23 19:14 | Emergency (ER) | payer MEDICARE, OTHER ==
[2019-01-23 20:38] LABS: ABSOLUTE LYMPHOCYTES (AUTO) 1.5 10^3/uL (0.5-4.7); ABSOLUTE MONOCYTES (AUTO) 0.5 10^3/uL (0.1-1.4); ABSOLUTE NEUT (AUTO) 4.8 10^3/uL (1.7-8.2); BASOPHILS % (AUTO) 0.3 % (0-2); EOSINOPHILS % (AUTO) 0.3 % (0-6); HEMATOCRIT 45.5 % (37.9-51.0); HEMOGLOBIN 14.8 g/dL (13.5-17.0); LYMPHOCYTES % (AUTO) 22.5 % (13-45); MEAN CORPUSCULAR HEMOGLOBIN 30.9 pg (27.0-33.4); MEAN CORPUSCULAR HGB CONC 32.5 g/dL (32.0-36.0); MEAN CORPUSCULAR VOLUME 95 fl (80-97); MONOCYTES % (AUTO) 6.7 % (3-13); PLATELET COUNT 251 10^3/uL (150-450); RED BLOOD COUNT 4.78 10^6/uL (4.35-5.55); RED CELL DISTRIBUTION WIDTH 14.4 % (11.5-14.0); SEGMENTED NEUTROPHILS % (AUTO) 70.2 % (42-78); TOTAL CELLS COUNTED % (AUTO) 100 %; WHITE BLOOD COUNT 6.9 10^3/uL (4.0-10.5)
--- NOTE | 2019-01-23 20:39 | ER Document Report ---
ED General - General Chief Complaint: Weakness Stated Complaint: LEG PAIN Time Seen by Provider: 01/23/19 20:24 Notes: Patient is a 78-year-old male who presents to the emergency department with a chief complaint of generalized weakness. He has had a symptoms for the past week and he was seen 2 days ago in the emergency department. He states that he has had weakness in his legs, but he still is able to walk. He has a past medical history of of a CVA, colon cancer with a colectomy that turned into ileostomy, hypertension, hyperlipidemia, and diabetes. Patient is a current everyday smoker. He smokes about a pack a day. States that he has never been diagnosed with lung cancer. He states that in the past 6 months he has lost a significant amount of weight he used to weigh 130 pounds and now he weighs 95. He also states that he has some difficulty swallowing. He is able to swallow liquids. He is also able to to swallow soft foods. Denies any loss of movement, facial droop, dizziness, or any other symptoms. Patient is able to walk. TRAVEL OUTSIDE OF THE [place] IN LAST 30 DAYS: No - Related Data Allergies/Adverse Reactions: phenobarbital [Phenobarbital] Allergy (Severe, Verified 01/13/19 18:22) Hallucinations topiramate [Topiramate] Allergy (Severe, Verified 01/13/19 18:22) hallucination Past Medical History - Social History Smoking Status: Current Every Day Smoker Family History: Reviewed & Not Pertinent, Hyperlipidemia - Past Medical History Cardiac Medical History: Reports: Hx Coronary Artery Disease, Hx Hyperc holesterolemia, Hx Heart Murmur Denies: Hx Atrial Fibrillation, Hx Congestive Heart Failure, Hx Heart Attack, Hx Hypertension, Hx Peripheral Vascular Disease, Hx Pulmonary Embolism Pulmonary Medical History: Reports: Hx Bronchitis, Hx COPD, Hx Pneumonia - hx of Denies: Hx Asthma, Hx Respiratory Failure, Hx Sleep Apnea, Hx Tuberculosis Neurological Medical History: Reports: 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 Denies: Hx Seizures Endocrine Medical History: Reports: Hx Diabetes Mellitus Type 1, Hx Diabetes Mellitus Type 2, Hx Hyperthyroidism, Hx Hypothyroidism Renal/ Medical History: Denies: Hx Benign Prostatic Hyperplasia, Hx End Stage Renal Disease, Hx Kidney Stones, Hx Peritoneal Dialysis Malignancy Medical History: Reports Hx Colorectal Cancer, Denies Hx Leukemia, Denies Hx Lung Cancer GI Medical History: Reports: Hx Hiatal Hernia, Hx Ulcer. Denies: Hx Crohn's Disease, Hx Gastroesophageal Reflux Disease, Hx Hepatitis, Hx Irritable Bowel, Hx Liver Failure, Hx Pancreatitis Musculoskeletal Medical History: Reports Hx Arthritis - osteoarthritis, Denies Hx Fibromyalgia, Denies Hx Multiple Sclerosis, Denies Hx Muscular Dystrophy Psychiatric Medical History: Reports: Hx Depression, Hx Post Traumatic Stress Disorder - anxiety Denies: Hx Bipolar Disorder, Hx Dementia, Hx Schizophrenia Traumatic Medical History: Denies: Hx Fractures Infectious Medical History: Denies: Hx Hepatitis, Hx HIV Past Surgical History: Reports: Hx Abdominal Surgery - colostomy, hiatal hernia, Hx Appendectomy, Hx Bowel Surgery - colon resection with iliostomy, Hx Cardiac Catheterization, Hx Cardiac Surgery - x3 stents, Hx Coronary Stent - x 3, Hx Herniorrhaphy - hiatal, Hx Tonsillectomy. Denies: Hx Cholecystectomy, Hx Colostomy, Hx Coronary Artery Bypass Graft, Hx Gastric Bypass Surgery, Hx Open Heart Surgery, Hx Pacemaker - Immunizations Hx Diphtheria, Pertussis, Tetanus Vaccination: Yes Hx Pneumococcal Vaccination: 05/03/12 Review of Systems - Review of Systems Notes: REVIEW OF SYSTEMS: CONSTITUTIONAL : Denies recent illness. Denies recent unintentional weight loss. Denies fever, chills, or sweats. EENT: See HPI CARDIOVASCULAR: Denies chest pain. RESPIRATORY: See HPI GASTROINTESTINAL: See HPI GENITOURINARY: Denies difficulty urinating, burning, blood in urine, urgency or frequency. MUSCULOSKELETAL: Denies neck and back pain. Denies joint pain or swelling. SKIN: Denies rash, itchiness, or lesions HEMATOLOGIC : Denies easy bruising or bleeding. LYMPHATIC: Denies swollen, painful, enlarged glands. NEUROLOGICAL: Denies no numbness or tingling denies weakness. Denies headache. Denies altered mental status. Denies alteration in speech. PSYCHIATRIC: Denies stress, anxiety, alteration in sleep patterns, or depression. All other systems reviewed and negative. Physical Exam - Vital signs Vitals: Resp 17 01/23/19 20:11 - Notes Notes: PHYSICAL EXAMINATION: GENERAL: Appears chronically ill, no acute distress. HEAD: Normocephalic, atraumatic. EYES: PERRL, conjunctiva normal, all extraocular movements intact, sclera nonicteric ENT: Moist mucous membranes. NECK: Supple, no noticeable swelling, redness, rash. Normal range of motion. LUNGS: Equal breath sounds bilaterally and clear to auscultation. No wheezes rales or rhonchi. CARDIOVASCULAR: S1-S2, regular rate, regular rhythm. Radial pulses 2+, normal. ABDOMEN: Normoactive bowel sounds. Soft, nontender, no guarding, no rebound tenderness, and no masses palpated. EXTREMITIES: Normal strength and range of motion, no pitting or edema. No cyanosis. NEUROLOGICAL: Moves all extremities upon command. Strength 5/5 in all extremities. PSYCH: Normal mood, normal affect. SKIN: Warm, dry. No rash, lesions, ulcerations noted. Normal skin turgor. Course - Re-evaluation Re-evalutation: 01/23/19 20:41 Patient's chest x-ray done on 2 days ago showed a 1 cm incomplete removed ovoid stroker sure in the right midlung. And there is a new pulmonary structure. I w ill send him for CT of the chest because of I have a very high suspicion for a new developing lung cancer, as he smokes a pack of cigarettes a day. Basic labs will be drawn. 01/23/19 22:[address] of the chest shows a right middle lobe infiltrate. CT of the neck was unremarkable. No masses noted. He received a gram of Rocephin here in the emergency department. He will be ambulated in the emergency department to see if he keeps his oxygen saturation up. His glucose is 477. He will receive 12 units of regular insulin subcutaneously. This will also bring down his potassium of 5.4. His sodium level has improved from the other day. CBC is unremarkable. 01/23/2019 23:00 Patient's oxygen saturation was 100% while he was walking in the room. His heart rate did elevate, but he had not received IV fluids yet. He will receive a liter of IV fluids. 01/24/19 01:28 Patient's blood sugar has improved to 254. I suspect the patient is most likely not taking his medication as prescribed, although he says he does. His blood sugar has been elevated, but came down after receiving insulin. His vital signs have stayed stable. I had a lengthy discussion with the patient on his swallowing issues. He does not have any teeth and he continues to try to eat foods that are not soft. I have educated him on making sure he sticks to eating soft foods since he does not have teeth. I have advised him that he can also crush his medications to make it easier to take them. He will be given a dose of azithromycin here in the emergency department and follow-up with his primary care provider. Since the patient has had difficulty swallowing for the past few months, I have advised him to follow-up with his primary care provider for a formal swallow eval. Follow-up precautions were given. Verbal discharge instructions were given to the patient. They verbalized understanding. They are stable for discharge. 01/24/19 02:27 Patient was able to swallow his medications with his applesauce with no difficulty. Nursing staff was concerned about the patient not having a ride home and that I had promised him that he could get a ride home. I spoke with Rosa, nursing customer services supervisor, and since the patient does live in [place], a cab voucher can be given for him to go home. - Vital Signs Vital signs: Temp Pulse Resp BP Pulse Ox 21 H 109/57 L 100 01/24/19 02:00 01/24/19 02:01 01/24/19 02:00 - Laboratory Result Diagrams: 01/23/19 20:25 01/23/19 20:25 Laboratory results interpreted by me: 01/23/19 01/23/19 01/24/19 20:25 20:25 01:26 RDW 14.4 H Sodium 135.6 L Potassium 5.4 H Carbon Dioxide 14 L Anion Gap 23 H BUN 27 H Glucose 477 H* POC Glucose 254 H Calcium 10.5 H Direct Bilirubin 0.5 H ALT 12 L Discharge - Discharge Clinical Impression: Weakness Pneumonia Qualifiers: Pneumonia type: due to unspecified organism Laterality: right Lung location: middle lobe of lung Qualified Code(s): J18.1 - Lobar pneumonia, unspecified organism Condition: Fair Disposition: HOME, SELF-CARE Additional Instructions: You were seen today in the emergency department for weakness. Your CT shows that you have pneumonia. This may be contributing to how you feel. You are being prescribed antibiotics. Please take all your antibiotics as prescribed. You can crush your pills and put them in applesauce to help with swallowing. Follow-up with your primary care provider in regards to this visit. As far as your difficulty swallowing goes, this is something that is chronic. Please eat foods that are soft and easy to swallow. Please start drinking Ensure when you are able to to help get the nutrition you need. Prescriptions: Azithromycin [Zithromax 250 mg Tablet] 250 mg PO DAILY #4 tablet
[2019-01-23 21:02] LABS: ALANINE AMINOTRANSFERASE 12 U/L (21-72); ALBUMIN 4.8 g/dL (3.5-5.0); ALKALINE PHOSPHATASE 92 U/L (38-126); ASPARTATE AMINO TRANSFERASE 32 U/L (17-59); BILIRUBIN,DIRECT 0.5 mg/dL (0.0-0.4); BILIRUBIN,TOTAL 0.7 mg/dL (0.2-1.3); BLOOD UREA NITROGEN 27 mg/dL (7-20); CALCIUM 10.5 mg/dL (8.4-10.2); CARBON DIOXIDE 14 mmol/L (22-30); CHLORIDE 99 mmol/L (98-107); POTASSIUM 5.4 mmol/L (3.6-5.0); SODIUM 135.6 mmol/L (137-145)
[2019-01-23 21:17] LABS: ANION GAP 23 (5-19); GLUCOSE 477 mg/dL (75-110)
[2019-01-23] MEDS ORDERED: INSULIN REG, HUMAN 100 UNIT/ML 3 ML VIAL (PYX) SUBCUT ONE (21:38)
--- NOTE | 2019-01-23 22:20 | RADIOLOGY REPORT (SQ) ---
EXAM DESCRIPTION: [facility]: CT CHEST WITH IV CONTRAST, CT NECK CHEST WITH IV CONTRAST CLINICAL HISTORY: 78 years Male; weakness/shorness of breath TECHNIQUE: CT of the neck and chest using intravenous contrast. All CT scans at this facility use dose modulation, iterative reconstruction, and/or weight based dosing when appropriate to reduce radiation dose to as low as reasonably achievable. COMPARISON: None. FINDINGS: NECK: Minimal fluid in left maxillary sinus. Other sinuses are clear. Mastoids are clear. Salivary glands are unremarkable. No suspicious soft tissue masses. No cervical adenopathy. Atherosclerotic plaque is noted at the bifurcation carotid bifurcations bilaterally, worse on the right. Left vertebral artery is diffusely hypoplastic. Right vertebral artery is dominant. Scattered calcific plaque is seen in both vertebral arteries. All teeth are absent. Chronic degenerative changes are noted in the cervical spine. No acute bone findings. Chest: Lungs: Extensive scattered lucencies are noted in both lungs, with hyperinflation, typical for emphysema. There is a mild groundglass infiltrate in the right middle lobe. No pleural effusion or pneumothorax. No suspicious nodules. Mediastinum: Aorta: Abdominal aortic stent graft is partially visualized. Thoracic aorta there is moderate calcific plaque throughout the thoracic aorta, without dissection. Descending thoracic aortic diameter 2.6 cm. Ascending diameter 2.9 cm. No mediastinal adenopathy. Coronary artery calcifications are noted. Bones:No acute bone findings. IMPRESSION: 1. Right middle lobe infiltrate, consistent with pneumonia. 2. Emphysema 3. Atherosclerosis. 4. No cervical mass or adenopathy.
[2019-01-23] MEDS ORDERED: CEFTRIAXONE 1 GM/D5W RTU 1 GM/50 ML RTUPB IV ONE (22:23)
[2019-01-23] MEDS ORDERED: ONDANSETRON HCL INJ/PF 4 MG/2 ML SDV IV ONE (23:16)
[2019-01-23] MEDS ORDERED: NORMAL SALINE 1000 ML 1,000 ML IV ONE (23:43)
[2019-01-24] MEDS ORDERED: AZITHROMYCIN 250 MG TABLET PO ONE (01:46)
[2019-01-24 02:09] VITALS: BP 109/57
== END 2019-01-24 02:15 | disposition home or self-care (01) ==
LOC: ER 19:14
DX: J18.1 Lobar pneumonia, unspecified organism (principal); R53.1 Weakness; F17.210 Nicotine dependence, cigarettes, uncomplicated; I25.10 Atherosclerotic heart disease of native coronary artery without angina pectoris; I69.351 Hemiplegia and hemiparesis following cerebral infarction affecting right dominant side; E78.00 Pure hypercholesterolemia, unspecified; J44.9 Chronic obstructive pulmonary disease, unspecified; Z93.2 Ileostomy status
CPT/HCPCS: 99285; 96375; 96365; 96366; 36415; 87040; 82962; 85025; 87077; 80053; 87186; 70491; 71260; A9270 ×2; J2405; J7030; J0696; J1815

== ENCOUNTER 2019-06-15 19:05 | Inpatient (IN) | payer MEDICARE, OTHER ==
--- NOTE | 2019-06-15 19:15 | ER Document Report ---
ED General - General Stated Complaint: POSSIBLE STROKE Time Seen by Provider: 06/15/19 19:06 TRAVEL OUTSIDE OF THE [place] IN LAST 30 DAYS: No - HPI Onset: Just prior to arrival Onset/Duration: Sudden Context: 79-year-old male with a past medical history of COPD, abdominal avm, a fib - not anticoagulated, current tobacco abuse, chronic malnutrition, presents by EMS as a stroke alert. He has previously had a cva which has left his left side weak, but it is weaker today. Speech is difficult and worse than at baseline. No fever or recent illness. - Related Data Allergies/Adverse Reactions: phenobarbital [Phenobarbital] Allergy (Severe, Verified 01/13/19 18:22) Hallucinations topiramate [Topiramate] Allergy (Severe, Verified 01/13/19 18:22) hallucination Past Medical History - Social History Smoking Status: Current Every Day Smoker Family History: Reviewed & Not Pertinent, Hyperlipidemia - Past Medical History Cardiac Medical History: Reports: Hx Coronary Artery Disease, Hx Hypercholesterolemia, Hx Heart Murmur Denies: Hx Atrial Fibrillation, Hx Congestive Heart Failure, Hx Heart Attack, Hx Hypertension, Hx Peripheral Vascular Disease, Hx Pulmonary Embolism Pulmonary Medical History: Reports: Hx Bronchitis, Hx COPD, Hx Pneumonia - hx of Denies: Hx Asthma, Hx Respiratory Failure, Hx Sleep Apnea, Hx Tuberculosis Neurological Medical History: Reports: 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 Denies: Hx Seizures. Comment Only: Hx Parkinson's Disease - ? intention tremors Endocrine Medical History: Reports: Hx Diabetes Mellitus Type 1, Hx Diabetes Mellitus Type 2, Hx Hyperthyroidism, Hx Hypothyroidism Renal/ Medical History: Denies: Hx Benign Prostatic Hyperplasia, Hx End Stage Renal Disease, Hx Kidney Stones, Hx Peritoneal Dialysis Malignancy Medical History: Reports Hx Colorectal Cancer, Denies Hx Leukemia, Denies Hx Lung Cancer GI Medical History: Reports: Hx Hiatal Hernia, Hx Ulcer. Denies: Hx Crohn's Disease, Hx Gastroesophageal Reflux Disease, Hx Hepatitis, Hx Irritable Bowel, Hx Liver Failure, Hx Pancreatitis Musculoskeletal Medical History: Reports Hx Arthritis - osteoarthritis, Denies Hx Fibromyalgia, Denies Hx Multiple Sclerosis, Denies Hx Muscular Dystrophy Psychiatric Medical History: Reports: Hx Depression, Hx Post Traumatic Stress Disorder - anxiety Denies: Hx Bipolar Disorder, Hx Dementia, Hx Schizophrenia Traumatic Medical History: Denies: Hx Fractures Infectious Medical History: Denies: Hx Hepatitis, Hx HIV Past Surgical History: Reports: Hx Abdominal Surgery - colostomy, hiatal hernia, Hx Appendectomy, Hx Bowel Surgery - colon resection with iliostomy, Hx Cardiac Catheterization, Hx Cardiac Surgery - x3 stents, Hx Coronary Stent - x 3, Hx Herniorrhaphy - hiatal, Hx Tonsillectomy. Denies: Hx Cholecystectomy, Hx Colostomy, Hx Coronary Artery Bypass Graft, Hx Gastric Bypass Surgery, Hx Open Heart Surgery, Hx Pacemaker - Immunizations Hx Diphtheria, Pertussis, Tetanus Vaccination: Yes Hx Pneumococcal Vaccination: 05/03/12 Review of Systems - Review of Systems Constitutional: No symptoms reported EENT: No symptoms reported Cardiovascular: No symptoms reported Respiratory: No symptoms reported Gastrointestinal: No symptoms reported Genitourinary: No symptoms reported Male Genitourinary: No symptoms reported Musculoskeletal: No symptoms reported Skin: No symptoms reported Hematologic/Lymphatic: No symptoms reported Neurological/Psychological: See HPI Physical Exam - Vital signs Vitals: Temp Resp BP Pulse Ox 98.2 F 17 157/73 H 94 06/15/19 19:19 06/15/19 19:19 06/15/19 19:19 06/15/19 19:19 Interpretation: Normal - General General appearance: Appears well, Alert - HEENT Head: Normocephalic, Atraumatic Eyes: Normal Pupils: PERRL - Respiratory Respiratory status: No respiratory distress Chest status: Nontender Breath sounds: Normal Chest palpation: Normal - Cardiovascular Rhythm: Regular Heart sounds: Normal auscultation Murmur: No - Abdominal Inspection: Normal Distension: No distension Bowel sounds: Normal Tenderness: Nontender Organomegaly: No organomegaly - Back Back: Normal, Nontender - Extremities General upper extremity: Normal inspection, Nontender, Normal color, Normal ROM, Normal temperature General lower extremity: Normal inspection, Nontender, Normal color, Normal ROM, Normal temperature, Normal weight bearing. No: Tala's sign - Neurological Neuro grossly intact: Yes Cognition: Normal Orientation: AAOx4 Mchenry Coma Scale Eye Opening: Spontaneous Xavi Coma Scale Verbal: Oriented Mchenry Coma Scale Motor: Obeys Commands Xavi Coma Scale Total: 15 Speech: Dysarthria Cranial nerves: Facial palsy - left facial droop Motor strength normal: RUE, RLE. 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 He has known AVM in GI tract and had terrible bleeding in the past from anticoagulation, so he is not a candidate here for TPA although that was considered. Additionally he has hyperkalemia that has been treated and has an acute kidney injury here. He has been and continues to be a DNR pt. The daughter would prefer he stay here if at all possible understanding out limitations regarding Neurology. He remains at high embolic risk due to persistent A fib. No in a fib at this time but flips at time into an a fib rhythm watching the monitor. I have discussed with Dr. Stanley and Dr. Uriarte who tells me he would graciously put the pt in the ICU for continuing treatment. This has been reviewed with the daughter and she expressed understanding. - Vital Signs Vital signs: Temp Pulse Resp BP Pulse Ox 98.4 F 87 16 123/76 95 06/16/19 00:20 06/16/19 00:15 06/16/19 00:15 06/16/19 00:15 06/16/19 00:15 - Laboratory Result Diagrams: 06/15/19 19:21 06/15/19 19:21 Laboratory results interpreted by me: 06/15/19 06/15/19 06/15/19 19:18 19:21 19:21 RBC 4.17 L Hgb 12.1 L Hct 36.2 L RDW 14.3 H Sodium 134.8 L Potassium 7.0 H* Carbon Dioxide 18 L BUN 76 H Creatinine 1.49 H Est GFR ( Amer) 55 L Est GFR (MDRD) Non-Af 46 L Glucose 209 H POC Glucose 186 H Critical Care Note - Critical Care Note Total time excluding time spent on procedures (mins): 30 Discharge - Discharge Clinical Impression: Hyperkalemia CVA (cerebral vascular accident) Qualifiers: CVA mechanism: unspecified Qualified Code(s): I63.9 - Cerebral infarction, unspecified Condition: Fair Disposition: ADMITTED INPATIENT Admitting Provider: Kal[facility] Unit Admitted: ICU
--- NOTE | 2019-06-15 19:33 | RADIOLOGY REPORT (SQ) ---
EXAM DESCRIPTION: CHEST SINGLE VIEW COMPLETED DATE/TIME: 06/15/2019 7:15 pm REASON FOR STUDY: bed 18 stroke alert COMPARISON: 01/21/2019 EXAM PARAMETERS: NUMBER OF VIEWS: One view. TECHNIQUE: Single frontal radiographic view of the chest acquired. RADIATION DOSE: NA LIMITATIONS: None. FINDINGS: LUNGS AND PLEURA: Hyperexpansion of the lungs. No infiltrate, effusion, or mass. No pulm onary edema. MEDIASTINUM AND HILAR STRUCTURES: No masses. Contour normal. HEART AND VASCULAR STRUCTURES: Heart normal in size. Normal vasculature. BONES: No acute findings. HARDWARE: None in the chest. OTHER: No other significant finding. IMPRESSION: Chronic lung changes with no acute cardiopulmonary finding. TECHNICAL DOCUMENTATION: JOB ID: [id number] [employer]- All Rights Reserved Reading location - IP/workstation name: [email or web address]
--- NOTE | 2019-06-15 19:38 | RADIOLOGY REPORT (SQ) ---
EXAM DESCRIPTION: CT HEAD WITHOUT COMPLETED DATE/TIME: 06/15/2019 7:23 pm REASON FOR STUDY: bed 18 stroke alert COMPARISON: 07/14/2018 TECHNIQUE: Axial images acquired through the brain without intravenous contrast. Images reviewed wit h bone, brain and subdural windows. Images stored on PACS. All CT scanners at this facility use dose modulation, iterative reconstruction, and/or weight based d osing when appropriate to reduce radiation dose to as low as reasonably achievable (ALARA). [facility]: Dose Right [facility]: CareDose [facility]: Dose Right [facility]: Teradose 4D [facility]: Smart Technologies RADIATION DOSE: CT Rad equipment meets quality standard of care and radiation dose reduction techniq ues were employed. CTDIvol: 53.2 - 55.2 mGy. DLP: 2074 mGy-cm.. LIMITATIONS: None. FINDINGS: VENTRICLES: Stable. CEREBRUM: No hemorrhage. No midline shift. Similar appearance of the white matter and old left fron honorio and right parietal infarcts. No evidence for acute large vessel infarction. CEREBELLUM: No hemorrhage. No alteration of density. No evidence for acute infarction. EXTRA-AXIAL SPACES: No fluid collections. ORBITS AND GLOBE: No intra- or extraconal masses. Normal contour of globe without masses. CALVARIUM: No fracture. PARANASAL SINUSES: Bilateral maxillary sinus fluid levels. SOFT TISSUES: No mass or hematoma. OTHER: No other significant finding. IMPRESSION: No hemorrhage. No midline shift. Similar appearance of the white matter and old left f rontal and right parietal infarcts. No evidence for acute large vessel infarction. Acute bilateral maxillary sinusitis. EVIDENCE OF ACUTE STROKE: NO. COMMENT: The findings were sent to the Radiology Results Communication Center at 19:31 on 9 to be communicated to a licensed caregiver. TECHNICAL DOCUMENTATION: JOB ID: [id number] Quality ID # [id number]: Final reports with documentation of one or more dose reduction techniques (e.g., Au tomated exposure control, adjustment of the mA and/or kV according to patient size, use of iterative reconstruction technique) 2010 [employer]- All Rights Reserved Reading location - IP/workstation name: [email or web address]
[2019-06-15 19:39] LABS: ABSOLUTE EOSINOPHILS # (AUTO) 0.1 10^3/uL (0.0-0.6); ABSOLUTE LYMPHOCYTES (AUTO) 1.1 10^3/uL (0.5-4.7); ABSOLUTE MONOCYTES (AUTO) 0.6 10^3/uL (0.1-1.4); ABSOLUTE NEUT (AUTO) 4.9 10^3/uL (1.7-8.2); BASOPHILS % (AUTO) 0.6 % (0-2); HEMATOCRIT 36.2 % (37.9-51.0); HEMOGLOBIN 12.1 g/dL (13.5-17.0); LYMPHOCYTES % (AUTO) 16.7 % (13-45); MEAN CORPUSCULAR HEMOGLOBIN 29.1 pg (27.0-33.4); MEAN CORPUSCULAR HGB CONC 33.5 g/dL (32.0-36.0); MEAN CORPUSCULAR VOLUME 87 fl (80-97); PLATELET COUNT 247 10^3/uL (150-450); RED BLOOD COUNT 4.17 10^6/uL (4.35-5.55); RED CELL DISTRIBUTION WIDTH 14.3 % (11.5-14.0); SEGMENTED NEUTROPHILS % (AUTO) 71.7 % (42-78); TOTAL CELLS COUNTED % (AUTO) 100 %; WHITE BLOOD COUNT 6.9 10^3/uL (4.0-10.5)
[2019-06-15 19:42] LABS: INTERNATIONAL RATION (INR) 0.98
[2019-06-15 19:43] LABS: PARTIAL THROMBOPLASTIN TIME 27.3 SEC (23.5-35.8)
[2019-06-15 19:59] LABS: ALBUMIN 4.3 g/dL (3.5-5.0); ALKALINE PHOSPHATASE 116 U/L (38-126); ANION GAP 12 (5-19); ASPARTATE AMINO TRANSFERASE 24 U/L (17-59); BILIRUBIN,DIRECT 0.1 mg/dL (0.0-0.4); BILIRUBIN,TOTAL 0.3 mg/dL (0.2-1.3); BLOOD UREA NITROGEN 76 mg/dL (7-20); CALCIUM 10.1 mg/dL (8.4-10.2); CARBON DIOXIDE 18 mmol/L (22-30); CHLORIDE 105 mmol/L (98-107); CREATINE KINASE 63 U/L (55-170); GLUCOSE 209 mg/dL (75-110)
[2019-06-15] MEDS ORDERED: NORMAL SALINE 1000 ML 1,000 ML IV ONE (20:04)
[2019-06-15] MEDS ORDERED: CALCIUM CHLORIDE 10% PF/INJ 1000 MG/10 ML SDV IV ONE (20:05)
[2019-06-15] MEDS ORDERED: INSULIN REG, HUMAN 100 UNIT/ML 3 ML VIAL (PYX) IV ONE (20:06)
[2019-06-15] MEDS ORDERED: SODIUM BICARBONATE 8.4% INJ 50 MEQ/50 ML DISP.SYRIN IV ONE (20:06)
[2019-06-15 20:09] LABS: CREATINE KINASE MB 2.54 ng/mL (<4.55); TROPONIN I 0.017 ng/mL
[2019-06-15] MEDS ORDERED: CALCIUM GLUCONATE 1000 MG/10 ML INJ IV ONE (20:15)
[2019-06-15] MEDS ORDERED: DEXTROSE 50%-WATER 25 GM/50 ML DISP.SYRIN IV ONE ×2 (20:23→20:26)
[2019-06-15] MEDS ORDERED: SODIUM POLYSTYRENE SULFONATE 15 GM/60 ML PO ONE (20:32)
[2019-06-15] MEDS ORDERED: PROMETHAZINE HCL INJ 25 MG/1 ML VIAL IV PRN (23:14)
[2019-06-15] MEDS ORDERED: FAMOTIDINE 20 MG TABLET PO SCH (23:15)
[2019-06-15] MEDS ORDERED: DEXTROSE 50%-WATER 25 GM/50 ML DISP.SYRIN IV PRN ×2 (23:27)
[2019-06-15] MEDS ORDERED: NORMAL SALINE 1000 ML 1,000 ML IV PRN (23:27)
[2019-06-15] MEDS ORDERED: GLUCAGON,HUMAN RECOMB 1 MG INJ IM PRN (23:27)
[2019-06-15] MEDS ORDERED: DEXTROSE 40% GEL 15 GM TUBE PO PRN ×2 (23:27)
--- NOTE | 2019-06-15 23:30 | EKG REPORT ---
SEVERITY:- ABNORMAL ECG - ATRIAL FIBRILLATION RBBB AND LPFB : Confirmed by: Karina Dlae MD 15-Jun-2019 23:30:29
[2019-06-15] MEDS ORDERED: FAMOTIDINE 20 MG TABLET PO ONE (23:45)
[2019-06-16] MEDS ORDERED: SODIUM POLYSTYRENE SULFONATE 15 GM/60 ML PO SCH
[2019-06-16 00:04] LABS: AMORPHOUS SEDIMENT,URINE TRACE /HPF; APPEARANCE,URINE SLIGHTLY-CLOUDY; BILIRUBIN,URINE NEGATIVE (NEGATIVE); COLOR,URINE YELLOW; GLUCOSE, URINE >=500 mg/dL (NEGATIVE); KETONES,URINE NEGATIVE (NEGATIVE); LEUKOCYTE ESTERASE,URINE LARGE (NEGATIVE); NITRITE,URINE NEGATIVE (NEGATIVE); PROTEIN,URINE NEGATIVE (NEGATIVE); URINE SPECIFIC GRAVITY 1.006; UROBILINOGEN,URINE NEGATIVE mg/dL (<2.0)
[2019-06-16 00:58] LABS: ANION GAP 8 (5-19); CALCIUM 8.2 mg/dL (8.4-10.2); CARBON DIOXIDE 17 mmol/L (22-30); CHLORIDE 119 mmol/L (98-107)
[2019-06-16 01:11] LABS: BLOOD UREA NITROGEN 56 mg/dL (7-20); POTASSIUM 3.8 mmol/L (3.6-5.0)
[2019-06-16 01:12] LABS: GLUCOSE 65 mg/dL (75-110)
[2019-06-16 01:16] LABS: CREATINE KINASE MB 2.1 ng/mL (<4.55); TROPONIN I 0.018 ng/mL
[2019-06-16] MEDS: INSULIN REG, HUMAN 100 UNIT/ML 3 ML VIAL (PYX) SUBCUT SCH ×4 (02:06→16:29)
[2019-06-16] MEDS ORDERED: DIAZEPAM INJ 10 MG/2 ML DISP.SYRIN IV ONE (03:00)
[2019-06-16] MEDS ORDERED: DIAZEPAM INJ 10 MG/2 ML DISP.SYRIN ONE (03:01)
[2019-06-16] MEDS ORDERED: NICOTINE 21 MG/24 HR PATCH.TD24 TD PRN (03:08)
--- NOTE | 2019-06-16 03:09 | PDOC H&P ---
History of Present Illness Admission Date/PCP: 06/15/19 23:20 NE CHINO NP Patient complains of: Acute weakness History of Present Illness: JOHN MARIE is a 79 year old male who presented to the emergency room via EMS from home due to acute weakness of his left side. He and his daughter explained that he has had a prior CVA that affected the strength of his left side and his speech but a short time prior to admission his left-sided weakness dramatically increased and his difficulty with speech also increased dramatic dramatically. They deny other accompanying or associated signs and symptoms. They admit prior similar symptoms with his previous CVA. They have not identified any aggravating or ameliorating factors for his current increased left-sided weakness and decreased ability to speak. In the emergency room patient was found to have left-sided weakness and dysarthria with a CT scan of the head showing no intracranial hemorrhage. Patient was determined to not be a c andidate for thrombolytic therapy due to his known gastrointestinal arteriovenous malformation which has become hemorrhagic with anticoagulation in the past, and his overall improvement in symptoms during his course of evaluation in the emergency room. Patient was subsequently admitted to the ICU for further evaluation and treatment. Past Medical History Cardiac Medical History: Reports: Coronary Artery Disease, Hyperlipidema, Peripheral Vascular Disease - Abdominal aortic aneurysm, Heart Murmur Denies: Atrial Fibrillation, Congestive Heart Failure, Myocardial Infarction, Hypertension, Pulmonary Embolism Pulmonary Medical History: Reports: Bronchitis, Chronic Obstructive Pulmonary Disease (COPD), Pneumonia - hx of Denies: Asthma, Respiratory Failure, Sleep Apnea, Tuberculosis EENT Medical History: Reports: Cataracts Denies: Ears - Hearing aids Neurological Medical History: Reports: Ischemic CVA Denies: Hemorrhagic CVA, Seizures Endocrine Medical History: Reports: Diabetes Mellitus Type 2, Hypothyroidism Denies: Diabetes Mellitus Type 1, Hyperthyroidism, Obesity Renal/ Medical History: Denies: Chronic Kidney Disease, Nephrolithiasis Malignancy Medical History: Reports: Colorectal Cancer GI Medical History: Reports: Hiatal Hernia, Other - Familial colonic polyposis Denies: Crohn's Disease, Gastroesophageal Reflux Disease, Hepatitis Musculoskeltal Medical History: Reports: Arthritis - osteoarthritis Denies: Fibromyalgia Skin Medical History: Denies: Eczema, Psoriasis Psychiatric Medical History: Reports: Depression, General Anxiety Disorder, Post Traumatic Stress Disorder, Tobacco Dependency Denies: Alcohol Dependency, Substance Abuse Traumatic Medical History: Reports: None Hematology: Reports: Anemia Denies: Bleeding Tendencies Infectious Medical History: Reports: None Past Surgical History Past Surgical History: Reports: Appendectomy, Cardiac Catheterization, Colostomy, Coronary Stent - x 3, Ileostomy - Following colectomy for malignant polyps, Tonsillectomy, Other - Hiatal hernia, PEG tube, endoscopy, bilateral cataracts Social History Information Source: Patient Lives with: Family, Spouse/Significant other Smoking Status: Current Every Day Smoker Electronic Cigarette use?: No Frequency of Alcohol Use: None Hx Recreational Drug Use: No Drugs: None Hx Prescription Drug Abuse: No - Advance Directive Resuscitation Status: Full Code Surrogate healthcare decision maker:: Destiney Rizzo Family History Family History: Malignancy - Colon cancer, Other - Colon polyps Parental Family History Reviewed: Yes Children Family History Reviewed: No Sibling(s) Family History Reviewed.: Yes Medication/Allergy Home Medications: Aripiprazole [Abilify 2 mg Tablet] 2 mg PO DAILY 06/15/19 Atorvastatin Calcium [Lipitor 40 mg Tablet] 40 mg PO QHS 06/15/19 Diazepam [Valium 2 mg Tablet] 2 mg PO BID PRN 06/15/19 Diltiazem HCl [Diltiazem ER] 180 mg PO DAILY 06/15/19 Dutasteride [Avodart Lf 0.5 mg Capsule] 0.5 mg PO DAILY 06/15/19 Insulin Aspart [Novolog] 0 unit SQ ACHS PRN 06/15/19 Insulin Detemir [Levemir] 17 units SUBCUT BID 06/15/19 Levothyroxine Sodium [Synthroid] 50 mcg PO DAILY 06/15/19 Metoprolol Tartrate [Lopressor 25 mg Tablet] 12.5 mg PO Q12 06/15/19 Mirtazapine [Remeron] 30 mg PO QHS 06/15/19 Nut.tx.gluc Intol,Lf,Soy/Fiber [Diabetisource AC 1.2 Fortunato Liq] 1,500 ml PEG DAILY 06/15/19 Pantoprazole Sodium [Protonix [address] Tablet] 40 mg PO BID 06/15/19 Venlafaxine HCl ER [Effexor Xr 75 mg Cap.sr] 75 mg PO DAILY 06/15/19 Allergies/Adverse Reactions: phenobarbital [Phenobarbital] Allergy (Severe, Verified 01/13/19 18:22) Hallucinations topiramate [Topiramate] Allergy (Severe, Verified 01/13/19 18:22) hallucination Review of Systems Constitutional: ABSENT: chills, fever(s) Eyes: ABSENT: visual disturbances, other - Eye pain Ears: ABSENT: hearing changes, other - Ear pain Nose, Mouth, and Throat: ABSENT: headache(s), mouth pain, sore throat Cardiovascular: ABSENT: chest pain, palpitations Respiratory: ABSENT: cough, dyspnea Gastrointestinal: ABSENT: abdominal pain, constipation, diarrhea, nausea, vomiting Genitourinary: ABSENT: dysuria, hematuria Musculoskeletal: ABSENT: back pain, joint swelling Integumentary: ABSENT: pruritus, rash Neurological: PRESENT: as per HPI, abnormal speech - Newly increased dysarthria, focal weakness - Newly increased left-sided weakness/hemiparesis. ABSENT: confusion, convulsions, memory loss, syncope Psychiatric: ABSENT: anxiety, depression Endocrine: ABSENT: cold intolerance, heat intolerance Hematologic/Lymphatic: PRESENT: other - History of AVM and small intestine. ABSENT: easy bleeding, easy bruising Allergic/Immunologic: ABSENT: seasonal rhinorrhea Physical Exam Vital Signs: Temp Pulse Resp BP Pulse Ox 98.2 F 90 19 140/72 H 95 06/15/19 19:19 06/15/19 19:25 06/15/19 22:30 06/15/19 22:30 06/15/19 22:30 Intake & Output 06/13/19 06/14/19 06/15/19 23:59 23:59 23:59 Weight 56 kg General appearance: PRESENT: no acute distress, cooperative Head exam: PRESENT: atraumatic, normocephalic Eye exam: PRESENT: conjunctiva pink. ABSENT: conjunctival injection, scleral icterus Ear exam: PRESENT: normal external ear exam. ABSENT: bleeding, drainage Mouth exam: PRESENT: dry mucosa, neck supple Neck exam: ABSENT: thyromegaly, tracheal deviation Respiratory exam: PRESENT: clear to auscultation keith, symmetrical, unlabored Cardiovascular exam: PRESENT: RRR. ABSENT: clicks, gallop, rubs Pulses: PRESENT: normal radial pulses, normal dorsalis pedis pul Vascular exam: PRESENT: normal capillary refill. ABSENT: pallor GI/Abdominal exam: PRESENT: normal bowel sounds, soft, other - PEG tube and ileostomy are noted Rectal exam: PRESENT: deferred Extremities exam: PRESENT: other - Left hemiparesis noted. ABSENT: joint swelling, pedal edema Musculoskeletal exam: PRESENT: other - Left hemiparesis noted. ABSENT: deformity, dislocation Neurological exam: PRESENT: alert, other - Marked dysarthria and left hemiparesis noted. ABSENT: oriented to person, oriented to place, oriented to time, oriented to situation Psychiatric exam: PRESENT: appropriate affect, normal mood Skin exam: PRESENT: dry, intact, warm. ABSENT: jaundice, rash, urticaria Results Laboratory Results: 06/15/19 19:21 06/15/19 19:21 06/15/19 06/15/19 06/15/19 19:21 19:21 19:21 WBC 6.9 RBC 4.17 L Hgb 12.1 L Hct 36.2 L MCV 87 MCH 29.1 MCHC 33.5 RDW 14.3 H Plt Count 247 Seg Neutrophils % 71.7 Sodium 134.8 L Potassium 7.0 H* Chloride 105 Carbon Dioxide 18 L Anion Gap 12 BUN 76 H Creatinine 1.49 H Est GFR ( Amer) 55 L Glucose 209 H Calcium 10.1 Magnesium 1.9 Total Bilirubin 0.3 AST 24 Alkaline Phosphatase 116 Total Protein 8.0 Albumin 4.3 Blood Type O POSITIVE Antibody Screen POSITIVE 06/15/19 06/15/19 19:21 19:21 Creatine Kinase 63 CK-MB (CK-2) 2.54 Troponin I 0.017 Impressions: Chest X-Ray 06/15/19 19:07 IMPRESSION: Chronic lung changes with no acute cardiopulmonary finding. Head CT 06/15/19 19:07 IMPRESSION: No hemorrhage. No midline shift. Similar appearance of the white matter and old left frontal and right parietal infarcts. No evidence for acute large vessel infarction. Acute bilateral maxillary sinusitis. EVIDENCE OF ACUTE STROKE: NO. Assessment and Plan - Diagnosis (1) Hyperkalemia Is this a current diagnosis for this admission?: Yes (2) COPD (chronic obstructive pulmonary disease) Qualifiers: COPD type: unspecified COPD Qualified Code(s): J44.9 - Chronic obstructive pulmonary disease, unspecified Is this a current diagnosis for this admission?: Yes (3) Coronary artery disease Is this a current diagnosis for this admission?: Yes (4) Hyperlipidemia Is this a current diagnosis for this admission?: Yes (5) Hypothyroidism Is this a current diagnosis for this admission?: Yes (6) PTSD (post-traumatic stress disorder) Is this a current diagnosis for this admission?: Yes (7) Presence of ileostomy Is this a current diagnosis for this admission?: Yes (8) History of colorectal cancer Is this a current diagnosis for this admission?: Yes (9) Tobacco dependence Is this a current diagnosis for this admission?: Yes - Plan Summary Summary: Patient is admitted to the ICU. He will be placed on the electrolyte protocol for ongoing treatment of his hyperkalemia in addition to Kayexalate 30 mg per PEG tube every 6 hours. An MRI of the brain without contrast will be obtained morning. Patient will be evaluated by physical therapy and Occupational Therapy as well as speech therapy per the stroke protocol. He has a PEG tube in place for administration of medications and fluids and also has an ileostomy in place. He will be treated with IV normal saline at 125 mL/h for his acute kidney injury. His metabolic profile will be followed closely to evaluate the status of his hyperkalemia and acute kidney injury. Patient will have frequent neurologic checks performed per the stroke protocol. For any pain he may have he will receive morphine sulfate 2 mg IV every 2 hours as needed. His chronic medications for his numerous chronic medical problems will be continued as appropriate. Patient will be assumed in care by the chief underwriter in the morning. - Time Time Spent with patient: 25-34 minutes Smoking Cessation Education: 3 to 10 minutes Medications reviewed and adjusted accordingly: Yes Anticipated discharge: SNF - Inpatient Certification Based on my medical assessment, after consideration of the patient's com orbidities, presenting symptoms, or acuity I expect that the services needed warrant INPATIENT care.: Yes I certify that my determination is in accordance with my understanding of Medicare's requirements for reasonable and necessary INPATIENT services [42 CFR 412.3e].: Yes Medical Necessity: Significant Comorbidiites Make Outpatient Treatment Too Risky, Need Close Monitoring Due to Risk of Patient Decompensation, Need For IV Fluids, Need For Continuous Telemetry Monitoring, Need for Neurological Checks, Risk of Complication if Not Cared For in Hospital
[2019-06-16 04:38] LABS: HEMATOCRIT 34.7 % (37.9-51.0); HEMOGLOBIN 11.7 g/dL (13.5-17.0); MEAN CORPUSCULAR HEMOGLOBIN 28.8 pg (27.0-33.4); MEAN CORPUSCULAR HGB CONC 33.6 g/dL (32.0-36.0); MEAN CORPUSCULAR VOLUME 86 fl (80-97); PLATELET COUNT 255 10^3/uL (150-450); RED BLOOD COUNT 4.05 10^6/uL (4.35-5.55); RED CELL DISTRIBUTION WIDTH 14.3 % (11.5-14.0); WHITE BLOOD COUNT 8.6 10^3/uL (4.0-10.5)
[2019-06-16 04:53] LABS: ALBUMIN 4.2 g/dL (3.5-5.0); ALKALINE PHOSPHATASE 117 U/L (38-126); ANION GAP 9 (5-19); ASPARTATE AMINO TRANSFERASE 31 U/L (17-59); BILIRUBIN,DIRECT 0.1 mg/dL (0.0-0.4); BILIRUBIN,TOTAL 0.3 mg/dL (0.2-1.3); BLOOD UREA NITROGEN 64 mg/dL (7-20); CALCIUM 10.2 mg/dL (8.4-10.2); CARBON DIOXIDE 23 mmol/L (22-30); CHLORIDE 110 mmol/L (98-107); GLUCOSE 142 mg/dL (75-110); TOTAL PROTEIN 8.1 g/dL (6.3-8.2)
[2019-06-16] MEDS: DILTIAZEM HCL 60 MG TABLET PEG SCH ×3 (05:26→22:05)
[2019-06-16] MEDS: LEVOTHYROXINE SODIUM 0.1 MG TABLET PEG SCH (05:26)
[2019-06-16] MEDS: HEPARIN SOD (PORCINE) 5,000 UNIT/ML 1 ML VIAL SUBCUT SCH ×2 (05:26→14:25)
[2019-06-16] MEDS: LEVOTHYROXINE SODIUM 0.025 MG TABLET PEG SCH (05:26)
[2019-06-16 05:38] LABS: POTASSIUM 5.6 mmol/L (3.6-5.0)
[2019-06-16] MEDS ORDERED: SODIUM POLYSTYRENE SULFONATE 15 GM/60 ML PEG SCH (06:00)
[2019-06-16] MEDS ORDERED: LEVOTHYROXINE SODIUM 0.05 MG TABLET PEG SCH (06:00)
[2019-06-16] MEDS ORDERED: DOCUSATE SODIUM 100 MG CAPSULE PO SCH (10:00)
[2019-06-16] MEDS: PANTOPRAZOLE SODIUM 40 MG VIAL IV SCH ×2 (10:19→22:08)
[2019-06-16] MEDS: VENLAFAXINE HCL 75 MG CAP.SR.24H PO SCH (10:22)
[2019-06-16] MEDS: METOPROLOL TARTRATE 25 MG TABLET PEG SCH ×2 (10:22→22:06)
[2019-06-16] MEDS: ARIPIPRAZOLE 2 MG TABLET PEG SCH (10:23)
[2019-06-16] MEDS: DUTASTERIDE 0.5 MG CAPSULE PO SCH (10:23)
[2019-06-16] MEDS: DIAZEPAM 2 MG TABLET PEG PRN ×2 (10:30→22:08)
[2019-06-16] MEDS: DOCUSATE SODIUM 100 MG/10 ML UDC PEG SCH ×2 (10:30→19:20)
[2019-06-16 12:00] LABS: ALBUMIN 3.9 g/dL (3.5-5.0); ANION GAP 15 (5-19); BLOOD UREA NITROGEN 59 mg/dL (7-20); CALCIUM 9.9 mg/dL (8.4-10.2); CARBON DIOXIDE 17 mmol/L (22-30); CHLORIDE 111 mmol/L (98-107); GLUCOSE 299 mg/dL (75-110); PHOSPHORUS 4.2 mg/dL (2.5-4.5)
[2019-06-16 12:10] LABS: POTASSIUM 6.1 mmol/L (3.6-5.0)
--- NOTE | 2019-06-16 12:53 | RADIOLOGY REPORT (SQ) ---
EXAM DESCRIPTION: MRI HEAD WITHOUT COMPLETED DATE/TIME: 06/16/2019 12:16 pm REASON FOR STUDY: sudden increased left side weakness COMPARISON: CT brain 06/15/2019, 07/14/2018, 06/18/2018 TECHNIQUE: Multiplanar imaging includes non-contrasted T1, T2, FLAIR, and diffusion with ADC map seq uences. Images stored on PACS. LIMITATIONS: Motion artifact FINDINGS: ANATOMY: No developmental anomalies. Normal vascular flow voids. Pituitary fossa normal. CSF SPACES: Normal in size and contour. No hemorrhage. CEREBRUM: Diffusion-weighted images are positive for acute ischemic change in the right frontal anna x and subcortical white matter anteriorly and posteriorly, along the precentral gyrus region. Puncta te focus of acute ischemic change right basal ganglia. Remainder of the brain parenchyma demonstrates extensive chronic white matter disease with old right posterior frontal infarct and wallerian degeneration along the motor pathways of the right hemisphere . Small left frontal cortical and subcortical white matter chronic infarct. POSTERIOR FOSSA: Old lacunar infarct left inferior cerebellar hemisphere. No hemorrhage. No edema, ma sses or mass effect. Internal auditory canals, cerebello-pontine angles, mastoids normal. DIFFUSION IMAGING: Negative for acute or sub-acute infarction. ORBITS: No masses. Globes post cataract surgery PARANASAL SINUSES: Air-fluid levels in the maxillary sinuses bilaterally OTHER: No other significant finding. IMPRESSION: Acute nonhemorrhagic infarct in the right hemisphere EVIDENCE OF ACUTE STROKE: Yes COMMENT: Pertinent findings on the imaging study reported as a CRITICAL RESULT to the patient's too Cecily in ICU at12:36 on 06/16/2019. Category of Critical Result: Acute stroke TECHNICAL DOCUMENTATION: JOB ID: [id number] [employer]- All Rights Reserved Reading location - IP/workstation name: [email or web address]
--- NOTE | 2019-06-16 17:35 | PDOC PROGRESS REPORT ---
Subjective Progress Note for:: 06/16/19 Subjective:: 79-year-old white male, [id number] , admitted for left facial droop left arm weakness. On his presenting NIH scale he would have been a candidate for thrombolysis however he has had extensive AV malformation related gastrointestinal bleed which have been life-threatening. This excluded him from this treatment. Likewise, his daughter had made him DNR and did not want aggressive treatment. He has atrial fibrillation in the family has not been able to maintain him on anticoagulation treatment because of the frequent bleeding. He has had subtle improvement in his neurological examination and physical therapy was able to ambulate albeit not at his baseline rate. Had a lengthy discussion with the daughter who shared several items with me regarding her her father's situation: 1. Had been domiciled in a rehab and was just discharged to his home where the daughter cares for him. At approximately 5-5 30 his exam change from his baseline. His normal ADL is that he is able to ambulate and has minimal dysfunction in his upper extremities. He does occasionally require a walker because of weakness. 2. He still continues to smoke and has persistent atrial fibrillation. 3. He has had lower blood pressure necessitating discontinuation of his pro state and urinary related medications. He has had several episodes of urinary retention. 4. Daughter noted his blood pressure to be low yesterday (70/40) at heart rate of 48. 5. Has weakness with dysphasia and has been warned not to eat. On last hospital admission in [place] demonstration of aspiration was made. Patient signed and family agreed to allow him to eat or drink at his leisure for comfort. 6. Daughter has noted a steady decline in his mental capacity as well as depression. 7. She uses a modified when coverage scale because he has extreme highs and lows. She has made distinct request to not treat any glucose below 200 except if it is hypoglycemia. She has a modified insulin scale for glucose coverage above 200 which is noted below: Glucose 200 to 250 units, glucose greater than 256 units subcu and any increment by 50 mg an additional 2 units added. At greater than 400 mg/dl units are given. 8. He receives DiaBeta at a continuous feeding from 6 PM to 6 AM. He also receives free water at 75 cc an hour at that same timeframe through a [employer] delivery device. During the daylight hours after 6 AM he receives no feeding but does receive boluses of free water 200 every 4 hours 9. Patient has a hiatal hernia and is unable to vomit after repair of this a number of years ago Reason For Visit: ACUTE CVA, HYPERKALEMIA Physical Exam Vital Signs: Temp Pulse Resp BP Pulse Ox 97.4 F 69 17 139/78 H 100 06/16/19 15:41 06/16/19 16:00 06/16/19 16:00 06/16/19 16:00 06/16/19 16:00 Intake & Output 06/15/19 06/16/19 06/17/19 06:59 06:59 06:59 Intake Total 498 400 Output Total 2000 535 Balance -1502 -135 Weight 50.1 kg Physical Exam: Chronically ill and critically ill-appearing 79-year-old male no active distress. Garble speech General appearance: PRESENT: no acute distress, cooperative, disheveled, thin. ABSENT: mild distress, severe distress Head exam: PRESENT: atraumatic, normocephalic Eye exam: PRESENT: conjunctiva pink, EOMI, PERRLA. ABSENT: conjunctival injection, nystagmus, scleral icterus Mouth exam: PRESENT: moist, neck supple, tongue midline Teeth exam: PRESENT: edentulous Neck exam: ABSENT: carotid bruit, JVD, lymphadenopathy, thyromegaly, tracheal deviation Respiratory exam: PRESENT: clear to auscultation keith, unlabored. ABSENT: accessory muscle use, tachypnea Cardiovascular exam: PRESENT: irregular rhythm, +S1, +S2 Pulses: ABSENT: normal dorsalis pedis pul Vascular exam: PRESENT: normal capillary refill GI/Abdominal exam: PRESENT: normal bowel sounds, soft. ABSENT: ascites, diminished bowel sounds, distended, firm, guarding, mass, Vyas's sign, organolmegaly, rebound, rigid, tenderness Rectal exam: PRESENT: deferred Gentrourinary exam: PRESENT: indwelling catheter Extremities exam: ABSENT: joint swelling, pedal edema Musculoskeletal exam: PRESENT: ambulatory. ABSENT: deformity, dislocation Neurological exam: PRESENT: awake, oriented to person, oriented to place, oriented to situation, abnormal gait. ABSENT: ataxia, normal gait, aphasic Additional comments: Xvai Coma Scale is 4 4 6 Motor exam: Strength in right upper extremity and right lower extremity 5/5 given his age; left upper extremity plegic; no teller; left lower extremity 4/5. Evaluation of the patient ambulating with PT: Slight favored weakness of the right leg but able to ambulate with assistance. Cranial nerves: Ocular movements are intact pupils are equal slight deficit of inward gaze however unsure if this is related to patient's understanding. Patient has a left facial droop, tongue deviation to right and garbled speech. Psychiatric exam: PRESENT: depressed, unusual affect Focused psych exam: PRESENT: other - Patient shows emotional lability with frequent crying Skin exam: PRESENT: dry, intact, normal color. ABSENT: abrasion, cyanosis, erythema, jaundice, mottled, pallor, petechiae, urticaria, vesicles Results Laboratory Results: 06/16/19 04:16 06/16/19 11:32 06/15/19 06/15/19 06/15/19 19:21 19:21 19:21 WBC 6.9 RBC 4.17 L Hgb 12.1 L Hct 36.2 L MCV 87 MCH 29.1 MCHC 33.5 RDW 14.3 H Plt Count 247 Seg Neutrophils % 71.7 Sodium 134.8 L Potassium 7.0 H* Chloride 105 Carbon Dioxide 18 L Anion Gap 12 BUN 76 H Creatinine 1.49 H Est GFR ( Amer) 55 L Est GFR (Non-Af Amer) Glucose 209 H Calcium 10.1 Phosphorus Magnesium 1.9 Total Bilirubin 0.3 AST 24 Alkaline Phosphatase 116 Total Protein 8.0 Albumin 4.3 TSH Urine Color Urine Appearance Urine pH Ur Specific [place] Urine Protein Urine Glucose (UA) Urine Ketones Urine Blood Urine Nitrite Ur Leukocyte Esterase Urine WBC (Auto) Urine RBC (Auto) Blood Type O POSITIVE Antibody Screen POSITIVE 06/15/19 06/16/19 06/16/19 23:36 00:10 04:16 WBC 8.6 RBC 4.05 L Hgb 11.7 L Hct 34.7 L MCV 86 MCH 28.8 MCHC 33.6 RDW 14.3 H Plt Count 255 Seg Neutrophils % Sodium 143.8 Potassium 3.8 D Chloride 119 H Carbon Dioxide 17 L Anion Gap 8 BUN 56 H D Creatinine 0.89 Est GFR ( Amer) > 60 Est GFR (Non-Af Amer) Glucose 65 L Calcium 8.2 L Phosphorus Magnesium Total Bilirubin AST Alkaline Phosphatase Total Protein Albumin TSH Urine Color YELLOW Urine Appearance SLIGHTLY-CLOUDY Urine pH 5.0 Ur Specific [place] 1.006 Urine Protein NEGATIVE Urine Glucose (UA) >=500 H Urine Ketones NEGATIVE Urine Blood NEGATIVE Urine Nitrite NEGATIVE Ur Leukocyte Esterase LARGE H Urine WBC (Auto) 29 Urine RBC (Auto) 2 Blood Type Antibody Screen 06/16/19 06/16/19 06/16/19 04:16 04:16 10:20 WBC RBC Hgb Hct MCV MCH MCHC RDW Plt Count Seg Neutrophils % Sodium 142.4 Cancelled Potassium 5.6 H D Cancelled Chloride 110 H Cancelled Carbon Dioxide 23 Cancelled Anion Gap 9 Cancelled BUN 64 H Cancelled Creatinine 1.09 Cancelled Est GFR ( Amer) > 60 Cancelled Est GFR (Non-Af Amer) Cancelled Glucose 142 H Cancelled Calcium 10.2 Cancelled Phosphorus Cancelled Magnesium 1.8 Total Bilirubin 0.3 AST 31 Alkaline Phosphatase 117 Total Protein 8.1 Albumin 4.2 Cancelled TSH 5.98 H Urine Color Urine Appearance Urine pH Ur Specific [place] Urine Protein Urine Glucose (UA) Urine Ketones Urine Blood Urine Nitrite Ur Leukocyte Esterase Urine WBC (Auto) Urine RBC (Auto) Blood Type Antibody Screen 06/16/19 11:32 WBC RBC Hgb Hct MCV MCH MCHC RDW Plt Count Seg Neutrophils % Sodium 142.5 Potassium 6.1 H* Chloride 111 H Carbon Dioxide 17 L Anion Gap 15 BUN 59 H Creatinine 1.01 Est GFR ( Amer) > 60 Est GFR (Non-Af Amer) Glucose 299 H Calcium 9.9 Phosphorus 4.2 Magnesium Total Bilirubin AST Alkaline Phosphatase Total Protein Albumin 3.9 TSH Urine Color Urine Appearance Urine pH Ur Specific [place] Urine Protein Urine Glucose (UA) Urine Ketones Urine Blood Urine Nitrite Ur Leukocyte Esterase Urine WBC (Auto) Urine RBC (Auto) Blood Type Antibody Screen 06/15/19 06/15/19 06/16/19 19:21 19:21 00:10 Creatine Kinase 63 59 CK-MB (CK-2) 2.54 Troponin I 0.017 06/16/19 00:10 Creatine Kinase CK-MB (CK-2) 2.10 Troponin I 0.018 Impressions: Chest X-Ray 06/15/19 19:07 IMPRESSION: Chronic lung changes with no acute cardiopulmonary finding. Head CT 06/15/19 19:07 IMPRESSION: No hemorrhage. No midline shift. Similar appearance of the white matter and old left frontal and right parietal infarcts. No evidence for acute large vessel infarction. Acute bilateral maxillary sinusitis. EVIDENCE OF ACUTE STROKE: NO. Head MRI 06/16/19 00:00 IMPRESSION: Acute nonhemorrhagic infarct in the right hemisphere EVIDENCE OF ACUTE STROKE: Yes Status: Imported from PACS Assessment & Plan - Diagnosis (1) Cerebrovascular accident, embolic Qualifiers: Precerebral and cerebral artery: unspecified cerebral artery Qualified Code(s): I63.40 - Cerebral infarction due to embolism of unspecified cerebral artery Is this a current diagnosis for this admission?: Yes (2) Dysphagia as late effect of cerebrovascular accident (CVA) Is this a current diagnosis for this admission?: Yes (3) Dysphagia causing pulmonary aspiration with swallowing Is this a current diagnosis for this admission?: Yes (4) Dysphagia Qualifiers: Dysphagia type: pharyngoesophageal phase Qualified Code(s): R13.14 - Dysphagia, pharyngoesophageal phase Is this a current diagnosis for this admission?: Yes (5) AVM (arteriovenous malformation) of duodenum, acquired Is this a current diagnosis for this admission?: Yes (6) At risk for bleeding Is this a current diagnosis for this admission?: Yes (7) Paralysis of left upper extremity Is this a current diagnosis for this admission?: Yes (8) Atrial fibrillation, persistent Is this a current diagnosis for this admission?: Yes (9) Hyperkalemia Is this a current diagnosis for this admission?: Yes - Time Time Spent with patient: 35 or more minutes Total Critical Time (Minutes): 80 - includes extensive end-of-life conversations with Daughter Destiney as well as frequent neurologic exam Level of Care: ICU Medications reviewed and adjusted accordingly: Yes Anticipated discharge: SNF Within: within 24 hours - Inpatient Certification Based on my medical assessment, after consideration of the patient's comorbidities, presenting symptoms, or acuity I expect that the services needed warrant INPATIENT care.: Yes I certify that my determination is in accordance with my understanding of Medicare's requirements for reasonable and necessary INPATIENT services [42 CFR 412.3e].: Yes Medical Necessity: Significant Comorbidiites Make Outpatient Treatment Too Risky, Need Close Monitoring Due to Risk of Patient Decompensation, Need for Neurological Checks, Risk of Complication if Not Cared For in Hospital, Risk of Diagnosis Which Will Require Inpatient Eval/Care/Monitoring - Plan Summary Plan Summary: 06.16.19: 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 He is not a candidate for anticoagulation secondary to the extreme risk of bleeding which she has had multiple times in the past. He had hypotension yesterday and in the face of atrial fibrillation placed him at a synergistic risk for stroke. MRI of the brain shows multifocal embolic phenomena that are not hemorrhagic. He has at risk for recurrence. Patient also has hyperkalemia most likely related to his KETTY inhibitor but I am concerned given his BUN elevation without an elevation in creatinine that this represents an occult GI bleed. He is at risk for aspiration and continually ask for oral intake. Originally he had been taking oral sporadically and had released the hospital from which she was discharged from of responsibility. I had a lengthy and long discussion with the patient's daughter Destiney. We discussed his continued decline, persistent atrial fibrillation without the ability to have anticoagulation, and persistent smoking. Also discussed his urinary retention. He has a [id number] score percentage of approximately 11% risk of stroke in n ext year. Given the fact that he has had a recent stroke this represents a short and long-term prognosis which is quite poor especially given his inability to have anticoagulation. In light of the above the daughter has made the patient DNR. She would not want treatment for hyperkalemia but she does request that he receive treatment for hyperglycemia. Concern is that he may sense that there has been complete withdrawal of care and she is concerned about his mental stability. He does have significant emotional lability recently and with this stroke she is concerned of worsening this phenomena. Plans are for supportive care. If he has a decline he would be transitioned to comfort care. The daughter also brought up the possibility of hospice however he is not an imminent risk of . That being said he is at high risk for recurrent stroke in the next week. The daughter has asked that no anticoagulation be given.
[2019-06-16] MEDS ORDERED: DEXTROSE 50%-WATER SYRINGE 12.5 GM/25 ML DOSE IV PRN (18:00)
[2019-06-16] MEDS ORDERED: DEXTROSE 40% GEL 15 GM TUBE PO PRN (18:00)
[2019-06-16] MEDS ORDERED: DEXTROSE 50%-WATER SYRINGE 25 GM/50 ML DOSE IV PRN (18:00)
[2019-06-16] MEDS ORDERED: GLUCAGON,HUMAN RECOMB 1 MG INJ IM PRN (18:00)
[2019-06-16] MEDS ORDERED: DEXTROSE 40% GEL 15 GM TUBE X 2 PO PRN (18:00)
[2019-06-16] MEDS: INSULIN LISPRO 100 UNIT/ML 3 ML VIAL SUBCUT SCH (22:05)
[2019-06-16] MEDS: ATORVASTATIN CALCIUM 40 MG TABLET PEG SCH (22:08)
[2019-06-16] MEDS: MIRTAZAPINE 15 MG TABLET PEG SCH (22:08)
[2019-06-17 04:16] LABS: HEMATOCRIT 30.9 % (37.9-51.0); HEMOGLOBIN 10.6 g/dL (13.5-17.0); MEAN CORPUSCULAR HEMOGLOBIN 29.8 pg (27.0-33.4); MEAN CORPUSCULAR HGB CONC 34.4 g/dL (32.0-36.0); MEAN CORPUSCULAR VOLUME 86 fl (80-97); PLATELET COUNT 236 10^3/uL (150-450); RED BLOOD COUNT 3.58 10^6/uL (4.35-5.55); WHITE BLOOD COUNT 6.9 10^3/uL (4.0-10.5)
[2019-06-17 05:05] LABS: ANION GAP 9 (5-19); BLOOD UREA NITROGEN 58 mg/dL (7-20); CALCIUM 9.4 mg/dL (8.4-10.2); CARBON DIOXIDE 21 mmol/L (22-30); CHLORIDE 106 mmol/L (98-107); GLUCOSE 362 mg/dL (75-110)
[2019-06-17] MEDS ORDERED: INSULIN GLARGINE,HUM.REC.ANLOG 1,000 UNIT/10 ML VIAL SUBCUT ONE (06:30)
[2019-06-17] MEDS: INSULIN LISPRO 100 UNIT/ML 3 ML VIAL SUBCUT PRN (06:39)
[2019-06-17] MEDS: DILTIAZEM HCL 60 MG TABLET PEG SCH ×3 (06:40→22:50)
[2019-06-17] MEDS: LEVOTHYROXINE SODIUM 0.1 MG TABLET PEG SCH (06:40)
[2019-06-17] MEDS: LEVOTHYROXINE SODIUM 0.025 MG TABLET PEG SCH (06:40)
[2019-06-17] MEDS ORDERED: INSULIN GLARGINE,HUM.REC.ANLOG 1,000 UNIT/10 ML VIAL (PYX) SUBCUT ONE (08:30)
[2019-06-17] MEDS: INSULIN LISPRO 100 UNIT/ML 3 ML VIAL SUBCUT SCH ×4 (08:48→23:17)
[2019-06-17] MEDS: PANTOPRAZOLE SODIUM 40 MG VIAL IV SCH (09:06)
[2019-06-17] MEDS: DOCUSATE SODIUM 100 MG/10 ML UDC PEG SCH ×2 (09:06→17:15)
[2019-06-17] MEDS: VENLAFAXINE HCL 75 MG CAP.SR.24H PO SCH (09:08)
[2019-06-17] MEDS: DUTASTERIDE 0.5 MG CAPSULE PO SCH (09:16)
[2019-06-17] MEDS: ARIPIPRAZOLE 2 MG TABLET PEG SCH (09:16)
[2019-06-17] MEDS: DIAZEPAM 2 MG TABLET PEG PRN ×2 (09:16→15:42)
[2019-06-17] MEDS ORDERED: CEFTRIAXONE SODIUM 1,000 MG in DEXTROSE 5%-WATER 50 ML IV SCH (11:00)
[2019-06-17] MEDS: GABAPENTIN 100 MG CAPSULE PO SCH ×3 (12:04→22:50)
[2019-06-17] MEDS: CEFTRIAXONE 1 GM/D5W RTU 1 GM/50 ML RTUPB IV SCH (12:05)
[2019-06-17] MEDS: METOPROLOL TARTRATE 25 MG TABLET PEG SCH ×2 (12:07→22:50)
--- NOTE | 2019-06-17 17:55 | PDOC CRITICAL CARE PROG REPORT ---
General Date:: 06/17/19 ICU Day:: 2 Ventilator Day:: 0 Hospital Day:: 2 Events in the past 12 to 24 Hours:: Patient has had no neurological decline since admission. He was again seen ambulating today but still has some residual left leg weakness albeit improved from yesterday. Left arm is still plegic. His speech is somewhat better today and he is more awake. He is less emotionally labile today. He has had no fevers, no hemodynamic instability, no seizures. He points to his right great toe and his daughter endorses that he has had difficulty with pain with ambulation because the toe is angled in flexion. He was started on Neurontin for pain. His potassium is still high without EKG changes. Daughter has elected not to actively treat this. Blood pressures have not been labile. Review of systems relevant to events:: see above Reason for ICU Addmission:: Left CVA - Medications: Medications reviewed and adjusted accordingly: Yes Vasopressors:: none Sedation:: none Physical Exam Vital Signs: Temp Pulse Resp BP Pulse Ox 98.2 F 62 23 H 122/94 H 99 06/17/19 14:00 06/17/19 16:00 06/17/19 16:00 06/17/19 16:00 06/17/19 16:00 Intake & Output 06/16/19 06/17/19 06/18/19 06:59 06:59 06:59 Intake Total 498 400 Output Total 1999 2090 600 Balance -1502 -1690 -600 Weight 50.1 kg 52.1 kg 52.1 kg Weight/Height Weight 52.1 kg Height 5 ft 8 in General appearance: PRESENT: no acute distress, cooperative, thin Exam: 79-year-old white male chronically and critically ill no acute distress more alert and awake today. Head exam: PRESENT: atraumatic, normocephalic Eye exam: PRESENT: conjunctiva pink, EOMI, PERRLA. ABSENT: conjunctival injection, nystagmus, scleral icterus Ear exam: PRESENT: normal external ear exam Mouth exam: PRESENT: moist, neck supple Teeth exam: PRESENT: poor dentation Neck exam: ABSENT: carotid bruit, JVD, lymphadenopathy, thyromegaly, tracheal deviation Respiratory exam: PRESENT: clear to auscultation keith, unlabored. ABSENT: accessory muscle use, tachypnea Cardiovascular exam: PRESENT: irregular rhythm, +S1, +S2. ABSENT: rubs, systolic murmur, tachycardia Pulses: ABSENT: normal dorsalis pedis pul Vascular exam: PRESENT: normal capillary refill GI/Abdominal exam: PRESENT: normal bowel sounds, soft. ABSENT: ascites, diminished bowel sounds, distended, firm, guarding, organolmegaly, rebound, rigid, tenderness Rectal exam: PRESENT: deferred Gentrourinary exam: PRESENT: indwelling catheter Extremities exam: ABSENT: tenderness Neurological exam: PRESENT: alert, awake, oriented to person, oriented to place, oriented to situation, CN II-XII grossly intact, motor sensory deficit - Plegic and flaccid left arm. Left leg 4/5 strength. Right upper and lower extremities 5/5. ABSENT: oriented to time Tubes/Lines: PRESENT: Other - Warren catheter. Needed for urinary retention. AB SENT: Endotracheal Tube, Chest Tube, Central Line, Arterial Catheter, Dialysis catheter, Peg Tube, Nasogastic Tube Laboratory/Radiographs Laboratory Results: 06/17/19 04:00 06/17/19 04:00 06/17/19 06/17/19 04:00 04:00 WBC 6.9 RBC 3.58 L Hgb 10.6 L Hct 30.9 L MCV 86 MCH 29.8 MCHC 34.4 RDW 14.0 Plt Count 236 Sodium 135.5 L Potassium 6.0 H* Chloride 106 Carbon Dioxide 21 L Anion Gap 9 BUN 58 H Creatinine 0.96 Est GFR ( Amer) > 60 Glucose 362 H Calcium 9.4 Phosphorus 3.0 Magnesium 1.7 06/15/19 06/15/19 06/16/19 19:21 19:21 00:10 Creatine Kinase 63 59 CK-MB (CK-2) 2.54 Troponin I 0.017 06/16/19 00:10 Creatine Kinase CK-MB (CK-2) 2.10 Troponin I 0.018 Impressions: Chest X-Ray 06/15/19 19:07 IMPRESSION: Chronic lung changes with no acute cardiopulmonary finding. Head CT 06/15/19 19:07 IMPRESSION: No hemorrhage. No midline shift. Similar appearance of the white matter and old left frontal and right parietal infarcts. No evidence for acute large vessel infarction. Acute bilateral maxillary sinusitis. EVIDENCE OF ACUTE STROKE: NO. Head MRI 06/16/19 00:00 IMPRESSION: Acute nonhemorrhagic infarct in the right hemisphere EVIDENCE OF ACUTE STROKE: Yes All labs, radiographs, diagnostic studies and EKGs were personally reviewed: Yes In addition, reports of radiographic and diagnostic studies were read: Yes Assessment and Plan - Diagnosis (1) Cerebrovascular accident, embolic Qualifiers: Precerebral and cerebral artery: unspecified cerebral artery Qualified Code(s): I63.40 - Cerebral infarction due to embolism of unspecified cerebral artery Is this a current diagnosis for this admission?: Yes (2) Dysphagia as late effect of cerebrovascular accident (CVA) Is this a current diagnosis for this admission?: Yes (3) Dysphagia causing pulmonary aspiration with swallowing Is this a current diagnosis for this admission?: Yes (4) Dysphagia Qualifiers: Dysphagia type: pharyngoesophageal phase Qualified Code(s): R13.14 - Dysphagia, pharyngoesophageal phase Is this a current diagnosis for this admission?: Yes (5) AVM (arteriovenous malformation) of duodenum, acquired Is this a current diagnosis for this admission?: Yes (6) At risk for bleeding Is this a current diagnosis for this admission?: Yes (7) Paralysis of left upper extremity Is this a current diagnosis for this admission?: Yes (8) Atrial fibrillation, persistent Is this a current diagnosis for this admission?: Yes (9) Hyperkalemia Is this a current diagnosis for this admission?: Yes (10) UTI (urinary tract infection) Qualifiers: Urinary tract infection type: acute cystitis Hematuria presence: without hematuria Qualified Code(s): N30.00 - Acute cystitis without hematuria Is this a current diagnosis for this admission?: Yes Plan: Present on admission (11) Hyponatremia Is this a current diagnosis for this admission?: Yes Plan: mild Plan Summary: 06.17.19: Patient has remained stable in the ICU without any neurological decline. He has the ability to ambulate but needs assistance with this. Since with stroke guidelines we are waiting swallowing studies and have encouraged the patient to use his dysphasia exercises which he had been on. He will need repeat studies given his recent stroke. We will continue to feed through his PEG tube. His tube feedings have been changed to Nepro at the nutritional guidelines for 12hour continuous tube feeds at night. Given his hyponatremia and stroke I discontinued his every 4 hour free water flushes. We will continue his night fluids which he gets with his nutrition. His hyperkalemia is unchanged and the family is asked for supportive care and no active treatment. He has had no sequelae related to this. As far as his diabetes, we do not have Levemir but I have started him on long- acting insulin in the form of lantus. We are hopeful that the insulin will assist with hyperkalemia. This point the best treatment for this patient is rehabilitation and we have asked physical therapy to assist in this decision-making as well as case management. Daughter is asked for an increase in Valium however he is not in any distress. We have assured her that if anything does change we will be judicious so as to not changes neuro exam. She is an as asked us to focus more on his comfort and we are in agreement. We will continue to control patient's blood pressure and control his atrial fibrillation rate. No anticoagulation. The daughter has been giving ibuprofen because of the toe pain. We have added Neurontin and have excluded any NSAIDs or aspirin because of his chronic bleeding. I will downgrade the patient from ICU care to floor status. Follow-up items include rehabilitation physical, physical therapy, glucose management, swallowing function with modified barium swallow on Thursday, conservative care including DNR/DNI. 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 He is not a candidate for anticoagulation secondary to the extreme risk of bleeding which ernestina christie has had multiple times in the past. He had hypotension yesterday and in the face of atrial fibrillation placed him at a synergistic risk for stroke. MRI of the brain shows multifocal embolic phenomena that are not hemorrhagic. He has at risk for recurrence. Patient also has hyperkalemia most likely related to his KETTY inhibitor but I am concerned given his BUN elevation without an elevation in creatinine that this represents an occult GI bleed. He is at risk for aspiration and continually ask for oral intake. Originally he had been taking oral sporadically and had released the hospital from which she was discharged from of responsibility. I had a lengthy and long discussion with the patient's daughter Destiney. We discussed his continued decline, persistent atrial fibrillation without the ability to have anticoagulation, and persistent smoking. Also discussed his urinary retention. He has a [id number] score percentage of approximately 11% risk of stroke in next year. Given the fact that he has had a recent stroke this represents a short and long-term prognosis which is quite poor especially given his inability to have anticoagulation. In light of the above the daughter has made the patient DNR. She would not want treatment for hyperkalemia but she does request that he receive treatment for hyperglycemia. Concern is that he may sense that there has been complete withdrawal of care and she is concerned about his mental stability. He does have significant emotional lability recently and with this stroke she is concerned of worsening this phenomena. Plans are for supportive care. If he has a decline he would be transitioned to comfort care. The daughter also brought up the possibility of hospice however he is not an imminent risk of . That being said he is at high risk for recurrent stroke in the next week. The daughter has asked that no anticoagulation be given. Critical Time Critical Time (minutes): 0 - [id number] Level of Care: MEDICAL Anticipated discharge: Acute Rehab Within: within 48 hours -: 1. The care of a critical patient is a dynamic process. This note is a car sales representative synopsis but static in nature. The timeframe for treatments given in order is not necessary the actual time these treatments may have been done. 2. This patient requires critical care secondary to ongoing requirements for therapy not offered or safe outside the critical care environment. Transfer to a lower level of care with altered life or limb morbidity and mortality. 3. Multidisciplinary rounds completed. 4. ABCDE bundle addressed.
[2019-06-17] MEDS: ACETAMINOPHEN WITH CODEINE #3 TABLET PO PRN ×2 (20:26→20:41)
[2019-06-17] MEDS: MIRTAZAPINE 15 MG TABLET PEG SCH (22:50)
[2019-06-17] MEDS: ATORVASTATIN CALCIUM 40 MG TABLET PEG SCH (22:50)
[2019-06-18 04:29] LABS: HEMATOCRIT 32.7 % (37.9-51.0); MEAN CORPUSCULAR HEMOGLOBIN 29.4 pg (27.0-33.4); MEAN CORPUSCULAR HGB CONC 33.6 g/dL (32.0-36.0); MEAN CORPUSCULAR VOLUME 88 fl (80-97); PLATELET COUNT 243 10^3/uL (150-450); RED BLOOD COUNT 3.73 10^6/uL (4.35-5.55); RED CELL DISTRIBUTION WIDTH 14.3 % (11.5-14.0)
[2019-06-18 04:48] LABS: ALBUMIN 3.8 g/dL (3.5-5.0); ALKALINE PHOSPHATASE 109 U/L (38-126); ANION GAP 11 (5-19); ASPARTATE AMINO TRANSFERASE 18 U/L (17-59); BILIRUBIN,DIRECT 0.1 mg/dL (0.0-0.4); BILIRUBIN,TOTAL 0.2 mg/dL (0.2-1.3); BLOOD UREA NITROGEN 53 mg/dL (7-20); CARBON DIOXIDE 22 mmol/L (22-30); CHLORIDE 104 mmol/L (98-107); GLUCOSE 398 mg/dL (75-110); POTASSIUM 4.6 mmol/L (3.6-5.0); TOTAL PROTEIN 6.8 g/dL (6.3-8.2)
[2019-06-18] MEDS: UMECLIDINIUM BROMIDE 62.5 MCG/DOSE IH SCH ×2 (05:12→17:52)
[2019-06-18] MEDS: GABAPENTIN 100 MG CAPSULE PO SCH ×3 (06:46→23:04)
[2019-06-18] MEDS: PANTOPRAZOLE SODIUM 40 MG PACKET.DR GT SCH ×2 (06:46→17:51)
[2019-06-18] MEDS: LEVOTHYROXINE SODIUM 0.025 MG TABLET PEG SCH (06:46)
[2019-06-18] MEDS: LEVOTHYROXINE SODIUM 0.1 MG TABLET PEG SCH (06:46)
[2019-06-18] MEDS: DILTIAZEM HCL 60 MG TABLET PEG SCH ×3 (06:46→23:04)
[2019-06-18] MEDS: INSULIN LISPRO 100 UNIT/ML 3 ML VIAL SUBCUT SCH ×4 (07:58→22:59)
[2019-06-18] MEDS: VENLAFAXINE HCL 75 MG CAP.SR.24H PO SCH ×2 (10:10→23:05)
[2019-06-18] MEDS: ARIPIPRAZOLE 2 MG TABLET PEG SCH (10:10)
[2019-06-18] MEDS: DUTASTERIDE 0.5 MG CAPSULE PO SCH (10:10)
[2019-06-18] MEDS: DOCUSATE SODIUM 100 MG/10 ML UDC PEG SCH ×2 (10:10→17:51)
[2019-06-18] MEDS: CEFTRIAXONE 1 GM/D5W RTU 1 GM/50 ML RTUPB IV SCH (10:11)
[2019-06-18] MEDS: METOPROLOL TARTRATE 25 MG TABLET PEG SCH ×2 (10:11→23:05)
[2019-06-18] MEDS: DIAZEPAM 2 MG TABLET PEG PRN (13:33)
[2019-06-18] MEDS ORDERED: DEXTROSE 40% GEL 15 GM TUBE PO PRN ×2 (16:07)
[2019-06-18] MEDS ORDERED: GLUCAGON,HUMAN RECOMB 1 MG INJ IM PRN (16:07)
[2019-06-18] MEDS ORDERED: DEXTROSE 50%-WATER 25 GM/50 ML DISP.SYRIN IV PRN ×2 (16:07)
--- NOTE | 2019-06-18 17:11 | PDOC PROGRESS REPORT ---
Subjective Progress Note for:: 06/18/19 Subjective:: JOHN MARIE is a 79 year old male past medical history of tobacco abuse, atrial fibrillation, CAD, hyperlipidemia, CVA, diabetes, colorectal cancer, depression, PTSD, anxiety who presented to the emergency room via EMS from home due to acute weakness of his left side. In the emergency room patient was found to have left-sided weakness and dysarthria with a CT scan of the head showing no intracranial hemorrhage. Not a tPA a candidate due to his known gastroint estinal arteriovenous malformation. Was found to be hyponatremic, hyperkalemic, and hypotensive quickly transferred to ICU. Stayed in ICU for 2 days. An MRI showed no nonischemic multifocal embolic stroke. Patient CODE STATUS was changed to DNR/DNI as per daughter request. And if he declines be transitioned to comfort cares only otherwise patient will be transferred to outpatient rehab. 06/18/2019. Was able to see patient in the afternoon, resting in bed in no apparent distress unfortunately patient has significant aphasia does not communicate much, does follow command, cannot move left upper extremity. Follow two-step command. Reason For Visit: ACUTE CVA,HYPERKALEMIA Physical Exam Vital Signs: Temp Pulse Resp BP Pulse Ox 97.7 F 74 15 109/57 L 98 06/18/19 11:05 06/18/19 14:00 06/18/19 12:00 06/18/19 12:00 06/18/19 12:00 Intake & Output 06/17/19 06/18/19 06/19/19 06:59 06:59 06:59 Intake Total 400 115 100 Output Total 2090 1245 225 Balance -1690 -1130 -125 Weight 52.1 kg 51.7 kg General appearance: PRESENT: no acute distress, thin Head exam: PRESENT: atraumatic, normocephalic Respiratory exam: PRESENT: clear to auscultation keith. ABSENT: rales, rhonchi, wheezes Cardiovascular exam: PRESENT: RRR. ABSENT: diastolic murmur, rubs, systolic murmur GI/Abdominal exam: PRESENT: normal bowel sounds, soft, other - PEG tube in place.. ABSENT: distended, guarding, mass, organolmegaly, rebound, tenderness Neurological exam: PRESENT: awake, CN II-XII grossly intact, motor sensory deficit - Left upper extremity strength 0/5., aphasic Results Laboratory Results: 06/18/19 04:08 06/18/19 04:08 06/18/19 06/18/19 04:08 04:08 WBC 7.0 RBC 3.73 L Hgb 11.0 L Hct 32.7 L MCV 88 MCH 29.4 MCHC 33.6 RDW 14.3 H Plt Count 243 Sodium 137.3 Potassium 4.6 Chloride 104 Carbon Dioxide 22 Anion Gap 11 BUN 53 H Creatinine 0.95 Est GFR ( Amer) > 60 Glucose 398 H Calcium 10.0 Magnesium 1.8 Total Bilirubin 0.2 AST 18 Alkaline Phosphatase 109 Total Protein 6.8 Albumin 3.8 06/15/19 06/15/19 06/16/19 19:21 19:21 00:10 Creatine Kinase 63 59 CK-MB (CK-2) 2.54 Troponin I 0.017 06/16/19 00:10 Creatine Kinase CK-MB (CK-2) 2.10 Troponin I 0.018 Impressions: Chest X-Ray 06/15/19 19:07 IMPRESSION: Chronic lung changes with no acute cardiopulmonary finding. Head CT 06/15/19 19:07 IMPRESSION: No hemorrhage. No midline shift. Similar appearance of the white matter and old left frontal and right parietal infarcts. No evidence for acute large vessel infarction. Acute bilateral maxillary sinusitis. EVIDENCE OF ACUTE STROKE: NO. Head MRI 06/16/19 00:00 IMPRESSION: Acute nonhemorrhagic infarct in the right hemisphere EVIDENCE OF ACUTE STROKE: Yes Assessment and Plan - Diagnosis (1) Cerebrovascular accident, embolic Qualifiers: Precerebral and cerebral artery: unspecified cerebral artery Qualified Code(s): I63.40 - Cerebral infarction due to embolism of unspecified cerebral artery Is this a current diagnosis for this admission?: Yes Plan: Multiple recurrent nonhemorrhagic infarct. Acute multiple embolic, nonhemorrhagic, a stroke involving the right hemisphere. No acute neurological changes. Patient with significant a aphasia and left upper extremity weakness. Not a candidate for chronic anticoagulation due to history of AVM. Continue high intensity statins, optimize BP, PT OT with possible transition to outpatient rehab/hospice. (2) AVM (arteriovenous malformation) of duodenum, acquired Is this a current diagnosis for this admission?: Yes (3) Atrial fibrillation, persistent Is this a current diagnosis for this admission?: Yes Plan: Rate controlled. Not a candidate for chronic anticoagulation. Continue Cardizem, PRN metoprolol. (4) Dysphagia as late effect of cerebrovascular accident (CVA) Is this a current diagnosis for this admission?: Yes Plan: PEG tube in place. Continue PEG tube care. Speech therapy on board. Possible modified barium swallow this coming Thursday. (5) BPH (benign prostatic hyperplasia) Is this a current diagnosis for this admission?: Yes Plan: Restart home meds. (6) COPD (chronic obstructive pulmonary disease) Qualifiers: COPD type: unspecified COPD Qualified Code(s): J44.9 - Chronic obstructive pulmonary disease, unspecified Is this a current diagnosis for this admission?: Yes Plan: Seem to be acutely exacerbated. Restart home meds. (7) Depression Is this a current diagnosis for this admission?: Yes Plan: Does not communicate much due to severe aphasia. Restart home meds. - Plan Summary Summary: Patient is admitted to the ICU. He will be placed on the electrolyte protocol for ongoing treatment of his hyperkalemia in addition to Kayexalate 30 mg per PEG tube every 6 hours. An MRI of the brain without contrast will be obtained morning. Patient will be evaluated by physical therapy and Occupational Therapy as well as speech therapy per the stroke protocol. He has a PEG tube in place for administration of medications and fluids and also has an ileostomy in place. He will be treated with IV normal saline at 125 mL/h for his acute kidney injury. His metabolic profile will be followed closely to evaluate the status of his hyperkalemia and acute kidney injury. Patient will have frequent neurologic checks performed per the stroke protocol. For any pain he may have h e will receive morphine sulfate 2 mg IV every 2 hours as needed. His chronic medications for his numerous chronic medical problems will be continued as appropriate. Patient will be assumed in care by the health actuary in the morning.
[2019-06-18] MEDS: TAMSULOSIN HCL 0.4 MG CAP.SR.24H PO SCH (17:51)
[2019-06-18] MEDS ORDERED: INSULIN GLARGINE,HUM.REC.ANLOG 1,000 UNIT/10 ML VIAL SUBCUT SCH (22:00)
[2019-06-18] MEDS ORDERED: (PENDING PHARMACY ID) (Venlafaxine Hcl [Venlafaxine Hcl Er] 75 MG) PO SCH (22:00)
[2019-06-18] MEDS ORDERED: ATORVASTATIN CALCIUM 40 MG TABLET PEG SCH (22:00)
[2019-06-18] MEDS: ATORVASTATIN CALCIUM 80 MG TABLET PEG SCH (23:05)
[2019-06-18] MEDS: MIRTAZAPINE 15 MG TABLET PEG SCH (23:05)
[2019-06-18] MEDS: INSULIN LISPRO 100 UNIT/ML 3 ML VIAL SUBCUT PRN (23:25)
[2019-06-19 04:44] LABS: ABSOLUTE EOSINOPHILS # (AUTO) 0.3 10^3/uL (0.0-0.6); ABSOLUTE LYMPHOCYTES (AUTO) 1.1 10^3/uL (0.5-4.7); ABSOLUTE MONOCYTES (AUTO) 0.6 10^3/uL (0.1-1.4); ABSOLUTE NEUT (AUTO) 3.9 10^3/uL (1.7-8.2); BASOPHILS % (AUTO) 0.5 % (0-2); EOSINOPHILS % (AUTO) 5.7 % (0-6); HEMATOCRIT 30.4 % (37.9-51.0); HEMOGLOBIN 10.3 g/dL (13.5-17.0); LYMPHOCYTES % (AUTO) 18.3 % (13-45); MEAN CORPUSCULAR HGB CONC 33.8 g/dL (32.0-36.0); MEAN CORPUSCULAR VOLUME 86 fl (80-97); MONOCYTES % (AUTO) 10.8 % (3-13); PLATELET COUNT 221 10^3/uL (150-450); RED BLOOD COUNT 3.54 10^6/uL (4.35-5.55); RED CELL DISTRIBUTION WIDTH 14.1 % (11.5-14.0); SEGMENTED NEUTROPHILS % (AUTO) 64.7 % (42-78); TOTAL CELLS COUNTED % (AUTO) 100 %
[2019-06-19 05:06] LABS: ANION GAP 11 (5-19); BLOOD UREA NITROGEN 46 mg/dL (7-20); CALCIUM 9.9 mg/dL (8.4-10.2); CARBON DIOXIDE 24 mmol/L (22-30); CHLORIDE 102 mmol/L (98-107); GLUCOSE 344 mg/dL (75-110); POTASSIUM 4.3 mmol/L (3.6-5.0)
[2019-06-19] MEDS: LEVOTHYROXINE SODIUM 0.1 MG TABLET PEG SCH (05:23)
[2019-06-19] MEDS: GABAPENTIN 100 MG CAPSULE PO SCH ×3 (05:23→21:07)
[2019-06-19] MEDS: LEVOTHYROXINE SODIUM 0.025 MG TABLET PEG SCH (05:23)
[2019-06-19] MEDS: PANTOPRAZOLE SODIUM 40 MG PACKET.DR GT SCH ×2 (05:23→18:20)
[2019-06-19] MEDS: DILTIAZEM HCL 60 MG TABLET PEG SCH ×3 (05:23→21:07)
[2019-06-19] MEDS: INSULIN LISPRO 100 UNIT/ML 3 ML VIAL SUBCUT PRN (05:42)
[2019-06-19] MEDS: INSULIN LISPRO 100 UNIT/ML 3 ML VIAL SUBCUT SCH ×4 (10:46→21:20)
[2019-06-19] MEDS: DOCUSATE SODIUM 100 MG/10 ML UDC PEG SCH ×2 (10:50→18:20)
[2019-06-19] MEDS: METOPROLOL TARTRATE 25 MG TABLET PEG SCH ×2 (10:51→21:08)
[2019-06-19] MEDS: VENLAFAXINE HCL 75 MG CAP.SR.24H PO SCH ×2 (10:51→21:08)
[2019-06-19] MEDS: DUTASTERIDE 0.5 MG CAPSULE PO SCH (10:51)
[2019-06-19] MEDS: ARIPIPRAZOLE 2 MG TABLET PEG SCH (10:51)
[2019-06-19] MEDS: CEFTRIAXONE 1 GM/D5W RTU 1 GM/50 ML RTUPB IV SCH (10:52)
[2019-06-19] MEDS: DIAZEPAM 2 MG TABLET PEG PRN (13:43)
[2019-06-19] MEDS ORDERED: NORMAL SALINE 1000 ML 1,000 ML IV PRN (14:23)
--- NOTE | 2019-06-19 14:34 | PDOC PROGRESS REPORT ---
Subjective Progress Note for:: 06/19/19 Subjective:: JOHN MARIE is a 79 year old male past medical history of tobacco abuse, atrial fibrillation, CAD, hyperlipidemia, CVA, diabetes, colorectal cancer, depression, PTSD, anxiety who presented to the emergency room via EMS from home due to acute weakness of his left side. In the emergency room patient was found to have left-sided weakness and dysarthria with a CT scan of the head showing no intracranial hemorrhage. Not a tPA a candidate due to his known gastroint estinal arteriovenous malformation. Was found to be hyponatremic, hyperkalemic, and hypotensive quickly transferred to ICU. Stayed in ICU for 2 days. An MRI showed no nonischemic multifocal embolic stroke. Patient CODE STATUS was changed to DNR/DNI as per daughter request. And if he declines be transitioned to comfort cares only otherwise patient will be transferred to outpatient rehab. 06/18/2019. Was able to see patient in the afternoon, resting in bed in no apparent distress unfortunately patient has significant aphasia does not communicate much, does follow command, cannot move left upper extremity. Follow two-step command. 06/19/2019. Seen patient in the afternoon while he is accompanied by his daughter who is also his POA. Patient daughter feeding some jelly when she is tolerating very well but he tends to cough when he tries to drink coffee. Patient does not seem to be in any acute distress but does not communicate much due to his a aphasia. Patient daughter wants to transition patient to inpatient acute rehab which the manager social services has been working on. Please refer to note. Reason For Visit: ACUTE CVA,HYPERKALEMIA Physical Exam Vital Signs: Temp Pulse Resp BP Pulse Ox 97.8 F 95 16 159/70 H 70 L 06/19/19 11:43 06/19/19 11:43 06/19/19 11:43 06/19/19 11:43 06/19/19 11:43 Intake & Output 06/18/19 06/19/19 06/20/19 06:59 06:59 06:59 Intake Total 115 2252 150 Output Total 1245 1875 200 Balance -1130 377 -50 Weight 51.7 kg 53.3 kg General appearance: PRESENT: no acute distress, thin Respiratory exam: PRESENT: clear to auscultation keith. ABSENT: rales, rhonchi, wheezes Cardiovascular exam: PRESENT: irregular rhythm. ABSENT: diastolic murmur, rubs, systolic murmur GI/Abdominal exam: PRESENT: normal bowel sounds, soft, other - PEG tube in place.. ABSENT: distended, guarding, mass, organolmegaly, rebound, tenderness Extremities exam: PRESENT: full ROM. ABSENT: calf tenderness, clubbing, pedal edema Neurological exam: PRESENT: motor sensory deficit - Left upper extremity strength 0/5., aphasic Results Laboratory Results: 06/19/19 04:31 06/19/19 04:31 06/19/19 06/19/19 04:31 04:31 WBC 6.0 RBC 3.54 L Hgb 10.3 L Hct 30.4 L MCV 86 MCH 29.0 MCHC 33.8 RDW 14.1 H Plt Count 221 Seg Neutrophils % 64.7 Sodium 137.3 Potassium 4.3 Chloride 102 Carbon Dioxide 24 Anion Gap 11 BUN 46 H Creatinine 0.84 Est GFR ( Amer) > 60 Glucose 344 H Calcium 9.9 Magnesium 1.7 06/15/19 06/15/19 06/16/19 19:21 19:21 00:10 Creatine Kinase 63 59 CK-MB (CK-2) 2.54 Troponin I 0.017 06/16/19 00:10 Creatine Kinase CK-MB (CK-2) 2.10 Troponin I 0.018 Impressions: Chest X-Ray 06/15/19 19:07 IMPRESSION: Chronic lung changes with no acute cardiopulmonary finding. Head CT 06/15/19 19:07 IMPRESSION: No hemorrhage. No midline shift. Similar appearance of the white matter and old left frontal and right parietal infarcts. No evidence for acute large vessel infarction. Acute bilateral maxillary sinusitis. EVIDENCE OF ACUTE STROKE: NO. Head MRI 06/16/19 00:00 IMPRESSION: Acute nonhemorrhagic infarct in the right hemisphere EVIDENCE OF ACUTE STROKE: Yes Assessment and Plan - Diagnosis (1) Cerebrovascular accident, embolic Qualifiers: Precerebral and cerebral artery: unspecified cerebral artery Qualified Code(s): I63.40 - Cerebral infarction due to embolism of unspecified cerebral artery Is this a current diagnosis for this admission?: Yes Plan: Multiple recurrent nonhemorrhagic infarct. Acute multiple embolic, nonhemorrhagic, stroke involving the right hemisphere. Stable neurologically. No acute changes. Patient with significant a aphasia and left upper extremity weakness. Not a candidate for chronic anticoagulation due to history of AVM. Continue high intensity statins, optimize BP, PT OT with possible transition to inpatient rehab as per POA request. (2) AVM (arteriovenous malformation) of duodenum, acquired Is this a current diagnosis for this admission?: Yes Plan: Monitor H&H. Supportive transfusions. (3) Atrial fibrillation, persistent Is this a current diagnosis for this admission?: Yes Plan: Rate controlled. Not a candidate for chronic anticoagulation. Continue Cardizem, PRN metoprolol. (4) Dysphagia as late effect of cerebrovascular accident (CVA) Is this a current diagnosis for this admission?: Yes Plan: Seems to be improving. Tolerating thick liquids. Patient able to tolerate PEG tube in place. Continue PEG tube care. Speech therapy on board. As per daughter no need for modified barium swallow at this point. (5) BPH (benign prostatic hyperplasia) Is this a current diagnosis for this admission?: Yes Plan: Restart home meds. (6) COPD (chronic obstructive pulmonary disease) Qualifiers: COPD type: unspecified COPD Qualified Code(s): J44.9 - Chronic obstructive pulmonary disease, unspecified Is this a current diagnosis for this admission?: Yes Plan: Seem to be acutely exacerbated. Restart home meds. (7) Depression Is this a current diagnosis for this admission?: Yes Plan: Does not communicate much due to severe aphasia. Restart home meds. (8) Hypokalemia Is this a current diagnosis for this admission?: Yes Plan: Resolved. Potassium level daily. - Plan Summary Summary: Patient is admitted to the ICU. He will be placed on the electrolyte protocol for ongoing treatment of his hyperkalemia in addition to Kayexalate 30 mg per PEG tube every 6 hours. An MRI of the brain without contrast will be obtained morning. Patient will be evaluated by physical therapy and Occupational Therapy as well as speech therapy per the stroke protocol. He has a PEG tube in place for administration of medications and fluids and also has an ileostomy in place. He will be treated with IV normal saline at 125 mL/h for his acute kidney injury. His metabolic profile will be followed closely to evaluate the status of his hyperkalemia and acute kidney injury. Patient will have frequent neuro logic checks performed per the stroke protocol. For any pain he may have he will receive morphine sulfate 2 mg IV every 2 hours as needed. His chronic medications for his numerous chronic medical problems will be continued as appropriate. Patient will be assumed in care by the apartment assistant manager in the morning.
[2019-06-19] MEDS: TAMSULOSIN HCL 0.4 MG CAP.SR.24H PO SCH (18:20)
[2019-06-19] MEDS: ATORVASTATIN CALCIUM 80 MG TABLET PEG SCH (21:07)
[2019-06-19] MEDS: MIRTAZAPINE 15 MG TABLET PEG SCH (21:07)
[2019-06-19] MEDS: ACETAMINOPHEN WITH CODEINE #3 TABLET PO PRN (21:08)
[2019-06-19] MEDS: INSULIN GLARGINE,HUM.REC.ANLOG 1,000 UNIT/10 ML VIAL SUBCUT SCH (21:19)
[2019-06-19] MEDS: UMECLIDINIUM BROMIDE 62.5 MCG/DOSE IH SCH (21:25)
[2019-06-19] MEDS ORDERED: INSULIN GLARGINE,HUM.REC.ANLOG 1,000 UNIT/10 ML VIAL SUBCUT SCH (22:00)
[2019-06-20] MEDS: DILTIAZEM HCL 60 MG TABLET PEG SCH ×3 (05:39→21:16)
[2019-06-20] MEDS: LEVOTHYROXINE SODIUM 0.1 MG TABLET PEG SCH (05:39)
[2019-06-20] MEDS: PANTOPRAZOLE SODIUM 40 MG PACKET.DR GT SCH ×2 (05:39→18:22)
[2019-06-20] MEDS: LEVOTHYROXINE SODIUM 0.025 MG TABLET PEG SCH (05:39)
[2019-06-20] MEDS: GABAPENTIN 100 MG CAPSULE PO SCH ×3 (05:39→22:05)
[2019-06-20 06:07] LABS: ABSOLUTE EOSINOPHILS # (AUTO) 0.3 10^3/uL (0.0-0.6); ABSOLUTE LYMPHOCYTES (AUTO) 1.2 10^3/uL (0.5-4.7); ABSOLUTE MONOCYTES (AUTO) 0.5 10^3/uL (0.1-1.4); ABSOLUTE NEUT (AUTO) 3.7 10^3/uL (1.7-8.2); BASOPHILS % (AUTO) 0.8 % (0-2); EOSINOPHILS % (AUTO) 6.1 % (0-6); HEMOGLOBIN 9.8 g/dL (13.5-17.0); LYMPHOCYTES % (AUTO) 20.4 % (13-45); MEAN CORPUSCULAR HEMOGLOBIN 29.5 pg (27.0-33.4); MEAN CORPUSCULAR HGB CONC 33.8 g/dL (32.0-36.0); MEAN CORPUSCULAR VOLUME 87 fl (80-97); MONOCYTES % (AUTO) 8.7 % (3-13); PLATELET COUNT 221 10^3/uL (150-450); RED BLOOD COUNT 3.33 10^6/uL (4.35-5.55); RED CELL DISTRIBUTION WIDTH 14.3 % (11.5-14.0); TOTAL CELLS COUNTED % (AUTO) 100 %; WHITE BLOOD COUNT 5.7 10^3/uL (4.0-10.5)
[2019-06-20 06:34] LABS: ANION GAP 9 (5-19); BLOOD UREA NITROGEN 39 mg/dL (7-20); CALCIUM 8.9 mg/dL (8.4-10.2); CARBON DIOXIDE 22 mmol/L (22-30); CHLORIDE 100 mmol/L (98-107); POTASSIUM 4.4 mmol/L (3.6-5.0)
[2019-06-20] MEDS ORDERED: INSULIN LISPRO 100 UNIT/ML 3 ML VIAL ONE (06:38)
[2019-06-20] MEDS ORDERED: INSULIN LISPRO 100 UNIT/ML 3 ML VIAL SUBCUT ONE (06:45)
[2019-06-20 06:46] LABS: GLUCOSE 490 mg/dL (75-110)
[2019-06-20] MEDS ORDERED: MAGNESIUM SULFATE/D5W 1 GM/100 ML RTUPB IV ONE (07:29)
[2019-06-20] MEDS ORDERED: NORMAL SALINE 1000 ML 1,000 ML IV PRN ×2 (07:32→14:16)
[2019-06-20] MEDS: INSULIN LISPRO 100 UNIT/ML 3 ML VIAL SUBCUT SCH ×4 (08:35→18:51)
[2019-06-20] MEDS: DOCUSATE SODIUM 100 MG/10 ML UDC PEG SCH ×2 (09:11→18:21)
[2019-06-20] MEDS: LISINOPRIL 5 MG TABLET PO SCH (09:12)
[2019-06-20] MEDS: METOPROLOL TARTRATE 25 MG TABLET PEG SCH ×2 (09:13→21:17)
[2019-06-20] MEDS: VENLAFAXINE HCL 75 MG CAP.SR.24H PO SCH ×2 (09:13→22:05)
[2019-06-20] MEDS: CEFTRIAXONE 1 GM/D5W RTU 1 GM/50 ML RTUPB IV SCH (11:17)
[2019-06-20] MEDS: DUTASTERIDE 0.5 MG CAPSULE PO SCH (11:17)
[2019-06-20] MEDS: ARIPIPRAZOLE 2 MG TABLET PEG SCH (11:17)
[2019-06-20] MEDS: INSULIN GLARGINE,HUM.REC.ANLOG 1,000 UNIT/10 ML VIAL SUBCUT SCH ×2 (11:20→18:22)
--- NOTE | 2019-06-20 14:23 | PDOC PROGRESS REPORT ---
Subjective Progress Note for:: 06/20/19 Subjective:: JOHN MARIE is a 79 year old male past medical history of tobacco abuse, atrial fibrillation, CAD, hyperlipidemia, CVA, diabetes, colorectal cancer, depression, PTSD, anxiety who presented to the emergency room via EMS from home due to acute weakness of his left side. In the emergency room patient was found to have left-sided weakness and dysarthria with a CT scan of the head showing no intracranial hemorrhage. Not a tPA a candidate due to his known gastroint estinal arteriovenous malformation. Was found to be hyponatremic, hyperkalemic, and hypotensive quickly transferred to ICU. Stayed in ICU for 2 days. An MRI showed no nonischemic multifocal embolic stroke. Patient CODE STATUS was changed to DNR/DNI as per daughter request. And if he declines be transitioned to comfort cares only otherwise patient will be transferred to outpatient rehab. 06/18/2019. Was able to see patient in the afternoon, resting in bed in no apparent distress unfortunately patient has significant aphasia does not communicate much, does follow command, cannot move left upper extremity. Follow two-step command. 06/19/2019. Seen patient in the afternoon while he is accompanied by his daughter who is also his POA. Patient daughter feeding some jelly when she is tolerating very well but he tends to cough when he tries to drink coffee. Patient does not seem to be in any acute distress but does not communicate much due to his a aphasia. Patient daughter wants to transition patient to inpatient acute rehab which the social media analyst has been working on. Please refer to note. 06/20/2018. No acute events overnight patient comfortably resting in bed no apparent distress. Does not communicate much due to his aphasia however when asked if he is in any pain he shakes his head saying no. He follows command, there is no new neurological changes. Reason For Visit: ACUTE CVA,HYPERKALEMIA Physical Exam Vital Signs: Temp Pulse Resp BP Pulse Ox 98.1 F 58 L 18 105/42 L 91 L 06/20/19 11:26 06/20/19 11:26 06/20/19 11:26 06/20/19 11:26 06/20/19 11:26 Intake & Output 06/19/19 06/20/19 06/21/19 06:59 06:59 06:59 Intake Total 2252 2200 100 Output Total 0597 1575 75 Balance 377 625 25 Weight 53.3 kg 56.3 kg General appearance: PRESENT: no acute distress, well-developed, well-nourished Head exam: PRESENT: atraumatic, normocephalic Respiratory exam: PRESENT: clear to auscultation keith. ABSENT: rales, rhonchi, wheezes Cardiovascular exam: PRESENT: RRR. ABSENT: diastolic murmur, rubs, systolic murmur GI/Abdominal exam: PRESENT: normal bowel sounds, soft, other - PEG tube and ileostomy intact.. ABSENT: distended, guarding, mass, organolmegaly, rebound, tenderness Neurological exam: PRESENT: awake, aphasic Results Laboratory Results: 06/20/19 05:53 06/20/19 05:53 06/20/19 06/20/19 05:53 05:53 WBC 5.7 RBC 3.33 L Hgb 9.8 L Hct 29.0 L MCV 87 MCH 29.5 MCHC 33.8 RDW 14.3 H Plt Count 221 Seg Neutrophils % 64.0 Sodium 131.3 L Potassium 4.4 Chloride 100 Carbon Dioxide 22 Anion Gap 9 BUN 39 H Creatinine 0.82 Est GFR ( Amer) > 60 Glucose 490 H* Calcium 8.9 Magnesium 1.5 L 06/15/19 06/15/19 06/16/19 19:21 19:21 00:10 Creatine Kinase 63 59 CK-MB (CK-2) 2.54 Troponin I 0.017 06/16/19 00:10 Creatine Kinase CK-MB (CK-2) 2.10 Troponin I 0.018 Impressions: Chest X-Ray 06/15/19 19:07 IMPRESSION: Chronic lung changes with no acute cardiopulmonary finding. Head CT 06/15/19 19:07 IMPRESSION: No hemorrhage. No midline shift. Similar appearance of the white matter and old left frontal and right parietal infarcts. No evidence for acute large vessel infarction. Acute bilateral maxillary sinusitis. EVIDENCE OF ACUTE STROKE: NO. Head MRI 06/16/19 00:00 IMPRESSION: Acute nonhemorrhagic infarct in the right hemisphere EVIDENCE OF ACUTE STROKE: Yes Assessment and Plan - Diagnosis (1) Cerebrovascular accident, embolic Qualifiers: Precerebral and cerebral artery: unspecified cerebral artery Qualified Code(s): I63.40 - Cerebral infarction due to embolism of unspecified cerebral artery Is this a current diagnosis for this admission?: Yes Plan: Multiple recurrent nonhemorrhagic infarct. Acute multiple embolic, nonhemorrhagic, stroke involving the right hemisphere. Stable neurologically. No acute changes. Patient with significant a aphasia and left upper extremity weakness. Not a candidate for chronic anticoagulation due to history of AVM. Continue high intensity statins, optimize BP, PT OT with possible transition to inpatient rehab as per POA request. (2) AVM (arteriovenous malformation) of duodenum, acquired Is this a current diagnosis for this admission?: Yes Plan: Monitor H&H. Supportive transfusions. (3) Atrial fibrillation, persistent Is this a current diagnosis for this admission?: Yes Plan: Rate controlled. Not a candidate for chronic anticoagulation. Continue Cardizem, PRN metoprolol. (4) Dysphagia as late effect of cerebrovascular accident (CVA) Is this a current diagnosis for this admission?: Yes Plan: Seems to be improving. Tolerating thick liquids. Patient able to tolerate PEG tube in place. Continue PEG tube care. Speech therapy on board. As per daughter no need for modified barium swallow at this point. (5) BPH (benign prostatic hyperplasia) Is this a current diagnosis for this admission?: Yes Plan: Restart home meds. (6) COPD (chronic obstructive pulmonary disease) Qualifiers: COPD type: unspecified COPD Qualified Code(s): J44.9 - Chronic obstructive pulmonary disease, unspecified Is this a current diagnosis for this admission?: Yes Plan: Seem to be acutely exacerbated. Restart home meds. (7) Depression Is this a current diagnosis for this admission?: Yes Plan: Does not communicate much due to severe aphasia. Restart home meds. (8) Hypokalemia Is this a current diagnosis for this admission?: Yes Plan: Resolved. Potassium level daily. (9) Hyponatremia Is this a current diagnosis for this admission?: Yes Plan: Mild hyponatremia likely worsened due to hyperglycemia this morning due to pseudohyponatremia. Will adjust free water boluses and correct underlying hyperglycemia. BMP tomorrow. Monitor for seizure. - Plan Summary Summary: Patient is admitted to the ICU. He will be placed on the electrolyte protocol for ongoing treatment of his hyperkalemia in addition to Kayexalate 30 mg per PEG tube every 6 hours. An MRI of the brain without contrast will be obtained morning. Patient will be evaluated by physical therapy and Occupational Therapy as well as speech therapy per the stroke protocol. He has a PEG tube in place for administration of medications and fluids and also has an ileostomy in place. He will be treated with IV normal saline at 125 mL/h for his acute kidney in [place]. His metabolic profile will be followed closely to evaluate the status of his hyperkalemia and acute kidney injury. Patient will have frequent neurologic checks performed per the stroke protocol. For any pain he may have he will receive morphine sulfate 2 mg IV every 2 hours as needed. His chronic medications for his numerous chronic medical problems will be continued as appropriate. Patient will be assumed in care by the fleet service clerk in the morning.
[2019-06-20] MEDS ORDERED: LORAZEPAM INJ 2 MG/1 ML VIAL IV PRN (14:24)
[2019-06-20] MEDS: UMECLIDINIUM BROMIDE 62.5 MCG/DOSE IH SCH (18:19)
[2019-06-20] MEDS: TAMSULOSIN HCL 0.4 MG CAP.SR.24H PO SCH (18:21)
[2019-06-20] MEDS: NORMAL SALINE 1000 ML 1,000 ML IV PRN (18:53)
[2019-06-20] MEDS: ATORVASTATIN CALCIUM 80 MG TABLET PEG SCH (22:05)
[2019-06-20] MEDS: MIRTAZAPINE 15 MG TABLET PEG SCH (22:05)
[2019-06-21] MEDS: INSULIN LISPRO 100 UNIT/ML 3 ML VIAL SUBCUT SCH ×4 (00:43→18:07)
[2019-06-21] MEDS: DILTIAZEM HCL 60 MG TABLET PEG SCH ×3 (05:22→21:25)
[2019-06-21] MEDS: GABAPENTIN 100 MG CAPSULE PO SCH ×3 (05:56→21:24)
[2019-06-21] MEDS: LEVOTHYROXINE SODIUM 0.1 MG TABLET PEG SCH (05:57)
[2019-06-21] MEDS: PANTOPRAZOLE SODIUM 40 MG PACKET.DR GT SCH ×2 (05:57→17:29)
[2019-06-21] MEDS: LEVOTHYROXINE SODIUM 0.025 MG TABLET PEG SCH (05:57)
[2019-06-21] MEDS: NORMAL SALINE 1000 ML 1,000 ML IV PRN ×2 (05:58→14:02)
[2019-06-21] MEDS: INSULIN GLARGINE,HUM.REC.ANLOG 1,000 UNIT/10 ML VIAL SUBCUT SCH ×2 (06:01→18:08)
[2019-06-21 06:32] LABS: ABSOLUTE EOSINOPHILS # (AUTO) 0.3 10^3/uL (0.0-0.6); ABSOLUTE MONOCYTES (AUTO) 0.5 10^3/uL (0.1-1.4); BASOPHILS % (AUTO) 0.5 % (0-2); EOSINOPHILS % (AUTO) 6.5 % (0-6); HEMATOCRIT 27.8 % (37.9-51.0); HEMOGLOBIN 9.4 g/dL (13.5-17.0); MEAN CORPUSCULAR HEMOGLOBIN 29.1 pg (27.0-33.4); MEAN CORPUSCULAR HGB CONC 33.8 g/dL (32.0-36.0); MEAN CORPUSCULAR VOLUME 86 fl (80-97); PLATELET COUNT 231 10^3/uL (150-450); RED BLOOD COUNT 3.24 10^6/uL (4.35-5.55); RED CELL DISTRIBUTION WIDTH 13.9 % (11.5-14.0); TOTAL CELLS COUNTED % (AUTO) 100 %; WHITE BLOOD COUNT 4.9 10^3/uL (4.0-10.5)
[2019-06-21 07:03] LABS: ANION GAP 6 (5-19); BLOOD UREA NITROGEN 27 mg/dL (7-20); CALCIUM 8.8 mg/dL (8.4-10.2); CARBON DIOXIDE 23 mmol/L (22-30); CHLORIDE 107 mmol/L (98-107); GLUCOSE 275 mg/dL (75-110); POTASSIUM 4.6 mmol/L (3.6-5.0)
[2019-06-21] MEDS: LISINOPRIL 5 MG TABLET PO SCH (08:50)
[2019-06-21] MEDS: METOPROLOL TARTRATE 25 MG TABLET PEG SCH ×2 (09:03→21:24)
[2019-06-21] MEDS: DOCUSATE SODIUM 100 MG/10 ML UDC PEG SCH ×2 (09:03→17:29)
[2019-06-21] MEDS: VENLAFAXINE HCL 75 MG CAP.SR.24H PO SCH ×2 (09:03→21:24)
[2019-06-21] MEDS: DUTASTERIDE 0.5 MG CAPSULE PO SCH (09:04)
[2019-06-21] MEDS: ARIPIPRAZOLE 2 MG TABLET PEG SCH (09:04)
[2019-06-21] MEDS: CEFTRIAXONE 1 GM/D5W RTU 1 GM/50 ML RTUPB IV SCH (09:04)
--- NOTE | 2019-06-21 16:13 | PDOC PROGRESS REPORT ---
Subjective Progress Note for:: 06/21/19 Subjective:: This is a 79 year old male past medical history of tobacco abuse, atrial fibrillation, CAD, hyperlipidemia, prior CVA, diabetes, colorectal cancer, depression, PTSD, anxiety who presented to the emergency room via EMS from home due to acute weakness of his left side. In the emergency room patient was found to have left-sided weakness and dysarthria with a CT scan of the head showing no intracranial hemorrhage. Not a tPA a candidate due to his known gastrointest inal arteriovenous malformation. He was found to be hyponatremic, hyperkalemic, and hypotensive and was transferred to ICU. Stayed in ICU for 2 days. An MRI showed multifocal embolic stroke. Patient CODE STATUS was changed to DNR/DNI as per daughter request. And if he declines be transitioned to comfort cares only otherwise patient will be transferred to outpatient rehab. Risk and benefits of anticoagulation and antiplatelet therapy was discussed with patient's daughter in the ICU and decision was made not to put him on any anticoagulation or antiplatelet given his history of duodenal AVM and GI bleed. Patient has been awaiting acute rehab placement. Otherwise no other acute event overnight. Upon encounter, he appears comfortable. He denies chest pain or shortness of breath. Continues to have left arm weakness. Reason For Visit: ACUTE CVA,HYPERKALEMIA Physical Exam Vital Signs: Temp Pulse Resp BP Pulse Ox 98.3 F 94 17 154/55 H 95 06/21/19 11:37 06/21/19 14:00 06/21/19 11:37 06/21/19 11:37 06/21/19 11:37 Intake & Output 06/20/19 06/21/19 06/22/19 06:59 06:59 06:59 Intake Total 2200 4586 915 Output Total 1575 2750 800 Balance 625 1836 115 Weight 124 lb 1.924 oz 126 lb 8.725 oz General appearance: PRESENT: no acute distress, well-developed, well-nourished Head exam: PRESENT: atraumatic, normocephalic Eye exam: PRESENT: conjunctiva pink, EOMI, PERRLA. ABSENT: scleral icterus Ear exam: PRESENT: normal external ear exam Mouth exam: PRESENT: moist, tongue midline Neck exam: ABSENT: carotid bruit, JVD, lymphadenopathy, thyromegaly Respiratory exam: PRESENT: clear to auscultation keith. ABSENT: rales, rhonchi, wheezes Cardiovascular exam: PRESENT: RRR. ABSENT: diastolic murmur, rubs, systolic murmur Pulses: PRESENT: normal dorsalis pedis pul GI/Abdominal exam: PRESENT: normal bowel sounds, soft. ABSENT: distended, guarding, mass, organolmegaly, rebound, tenderness Rectal exam: PRESENT: deferred Extremities exam: PRESENT: full ROM. ABSENT: calf tenderness, clubbing, pedal edema Neurological exam: PRESENT: alert, awake, oriented to person, oriented to place, oriented to time, motor sensory deficit - L arm weakness 08/07 Results Laboratory Results: 06/21/19 06:04 06/21/19 06:04 06/21/19 06/21/19 06:04 06:04 WBC 4.9 RBC 3.24 L Hgb 9.4 L Hct 27.8 L MCV 86 MCH 29.1 MCHC 33.8 RDW 13.9 Plt Count 231 Seg Neutrophils % 62.0 Sodium 136.4 L Potassium 4.6 Chloride 107 Carbon Dioxide 23 Anion Gap 6 BUN 27 H Creatinine 0.70 Est GFR ( Amer) > 60 Glucose 275 H Calcium 8.8 Magnesium 1.8 06/15/19 06/15/19 06/16/19 19:21 19:21 00:10 Creatine Kinase 63 59 CK-MB (CK-2) 2.54 Troponin I 0.017 06/16/19 00:10 Creatine Kinase CK-MB (CK-2) 2.10 Troponin I 0.018 Impressions: Chest X-Ray 06/15/19 19:07 IMPRESSION: Chronic lung changes with no acute cardiopulmonary finding. Head CT 06/15/19 19:07 IMPRESSION: No hemorrhage. No midline shift. Similar appearance of the white matter and old left frontal and right parietal infarcts. No evidence for acute large vessel infarction. Acute bilateral maxillary sinusitis. EVIDENCE OF ACUTE STROKE: NO. Head MRI 06/16/19 00:00 IMPRESSION: Acute nonhemorrhagic infarct in the right hemisphere EVIDENCE OF ACUTE STROKE: Yes Assessment and Plan - Diagnosis (1) Cerebrovascular accident, embolic Qualifiers: Precerebral and cerebral artery: unspecified cerebral artery Qualified Code(s): I63.40 - Cerebral infarction due to embolism of unspecified cerebral artery Is this a current diagnosis for this admission?: Yes Plan: Statin. Continue to optimize blood pressure control. Not on anticoagulation or antiplatelet therapy due to reasons mentioned above. (2) Atrial fibrillation, persistent Is this a current diagnosis for this admission?: Yes Plan: Rate controlled. Continue PO cardizem. (3) COPD (chronic obstructive pulmonary disease) Qualifiers: COPD type: unspecified COPD Qualified Code(s): J44.9 - Chronic obstructive pulmonary disease, unspecified Is this a current diagnosis for this admission?: Yes Plan: Not in exacerbation. (4) Coronary artery disease Is this a current diagnosis for this admission?: Yes Plan: Stable. Continue home meds. (5) Insulin dependent diabetes mellitus Is this a current diagnosis for this admission?: Yes Plan: Continue insulin regimen. - Time Time Spent with patient: 25-34 minutes
[2019-06-21] MEDS: UMECLIDINIUM BROMIDE 62.5 MCG/DOSE IH SCH (17:29)
[2019-06-21] MEDS: TAMSULOSIN HCL 0.4 MG CAP.SR.24H PO SCH (17:29)
[2019-06-21] MEDS: MIRTAZAPINE 15 MG TABLET PEG SCH (21:24)
[2019-06-21] MEDS: ATORVASTATIN CALCIUM 80 MG TABLET PEG SCH (21:25)
[2019-06-22] MEDS: INSULIN LISPRO 100 UNIT/ML 3 ML VIAL SUBCUT SCH ×5 (00:12→23:11)
[2019-06-22] MEDS: LEVOTHYROXINE SODIUM 0.025 MG TABLET PEG SCH (05:19)
[2019-06-22] MEDS: PANTOPRAZOLE SODIUM 40 MG PACKET.DR GT SCH ×2 (05:19→18:13)
[2019-06-22] MEDS: LEVOTHYROXINE SODIUM 0.1 MG TABLET PEG SCH (05:19)
[2019-06-22] MEDS: GABAPENTIN 100 MG CAPSULE PO SCH ×3 (05:19→21:56)
[2019-06-22] MEDS: DILTIAZEM HCL 60 MG TABLET PEG SCH ×3 (05:20→21:56)
[2019-06-22 05:53] LABS: ANION GAP 8 (5-19); BLOOD UREA NITROGEN 22 mg/dL (7-20); CALCIUM 8.7 mg/dL (8.4-10.2); CARBON DIOXIDE 23 mmol/L (22-30); CHLORIDE 105 mmol/L (98-107); GLUCOSE 225 mg/dL (75-110); POTASSIUM 4.5 mmol/L (3.6-5.0)
[2019-06-22 06:07] LABS: HEMATOCRIT 28.1 % (37.9-51.0); HEMOGLOBIN 9.5 g/dL (13.5-17.0); MEAN CORPUSCULAR HEMOGLOBIN 28.9 pg (27.0-33.4); MEAN CORPUSCULAR HGB CONC 33.7 g/dL (32.0-36.0); MEAN CORPUSCULAR VOLUME 86 fl (80-97); PLATELET COUNT 227 10^3/uL (150-450); RED BLOOD COUNT 3.28 10^6/uL (4.35-5.55); WHITE BLOOD COUNT 5.3 10^3/uL (4.0-10.5)
[2019-06-22 06:12] LABS: ABSOLUTE LYMPHOCYTES# (MANUAL) 1.2 10^3/uL (0.5-4.7); ABSOLUTE MONOCYTES # (MANUAL) 0.7 10^3/uL (0.1-1.4); BASOPHILS % (MANUAL) 1 % (0-2); EOSINOPHILS % (MANUAL) 4 % (0-6); LYMPHOCYTES % (MANUAL) 23 % (13-45); MONOCYTES % (MANUAL) 13 % (3-13); SEGMENTED NEUTROPHILS % (MAN) 59 % (42-78); TOTAL CELLS COUNTED 100
[2019-06-22 06:13] LABS: OVALOCYTES SLIGHT; POIKILOCYTOSIS SLIGHT; TOXIC GRANULATION SLIGHT
[2019-06-22 06:14] LABS: ANISOCYTOSIS SLIGHT; PLATELET COMMENT ADEQUATE
[2019-06-22] MEDS: INSULIN GLARGINE,HUM.REC.ANLOG 1,000 UNIT/10 ML VIAL SUBCUT SCH ×2 (06:15→21:56)
[2019-06-22] MEDS: VENLAFAXINE HCL 75 MG CAP.SR.24H PO SCH ×2 (10:13→21:56)
[2019-06-22] MEDS: METOPROLOL TARTRATE 25 MG TABLET PEG SCH ×2 (10:19→21:57)
[2019-06-22] MEDS: CEFTRIAXONE 1 GM/D5W RTU 1 GM/50 ML RTUPB IV SCH (10:19)
[2019-06-22] MEDS: DUTASTERIDE 0.5 MG CAPSULE PO SCH (10:21)
[2019-06-22] MEDS: ARIPIPRAZOLE 2 MG TABLET PEG SCH (10:21)
[2019-06-22] MEDS: DOCUSATE SODIUM 100 MG/10 ML UDC PEG SCH ×2 (10:21→18:06)
[2019-06-22] MEDS: LISINOPRIL 5 MG TABLET PO SCH (10:21)
--- NOTE | 2019-06-22 14:24 | PDOC PROGRESS REPORT ---
Subjective Progress Note for:: 06/22/19 Subjective:: This is a 79 year old male past medical history of tobacco abuse, atrial fibrillation, CAD, hyperlipidemia, prior CVA, diabetes, colorectal cancer, depression, PTSD, anxiety who presented to the emergency room via EMS from home due to acute weakness of his left side. In the emergency room patient was found to have left-sided weakness and dysarthria with a CT scan of the head showing no intracranial hemorrhage. Not a tPA a candidate due to his known gastrointest inal arteriovenous malformation. He was found to be hyponatremic, hyperkalemic, and hypotensive and was transferred to ICU. Stayed in ICU for 2 days. An MRI showed multifocal embolic stroke. Patient CODE STATUS was changed to DNR/DNI as per daughter request. And if he declines be transitioned to comfort cares only otherwise patient will be transferred to outpatient rehab. Risk and benefits of anticoagulation and antiplatelet therapy was discussed with patient's daughter in the ICU and decision was made not to put him on any anticoagulation or antiplatelet given his history of duodenal AVM and GI bleed. Patient has been awaiting acute rehab placement. Otherwise no other acute event overnight. Upon encounter, he appears comfortable. He denies chest pain or shortness of breath. Continues to have left arm weakness. He was denied at [facility] acute rehab. Awaiting placement to SNF/other rehab facilities. Reason For Visit: ACUTE CVA,HYPERKALEMIA Physical Exam Vital Signs: Temp Pulse Resp BP Pulse Ox 98.1 F 86 16 147/68 H 96 06/22/19 09:24 06/22/19 09:24 06/22/19 09:24 06/22/19 09:24 06/22/19 09:24 Intake & Output 06/21/19 06/22/19 06/23/19 06:59 06:59 06:59 Intake Total 4586 1510 Output Total 2750 3175 Balance 1836 -1665 Weight 126 lb 8.725 oz 126 lb 12.253 oz General appearance: PRESENT: no acute distress, well-developed, well-nourished Head exam: PRESENT: atraumatic, normocephalic Eye exam: PRESENT: conjunctiva pink, EOMI, PERRLA. ABSENT: scleral icterus Ear exam: PRESENT: normal external ear exam Mouth exam: PRESENT: moist, tongue midline Neck exam: ABSENT: carotid bruit, JVD, lymphadenopathy, thyromegaly Respiratory exam: PRESENT: clear to auscultation keith. ABSENT: rales, rhonchi, wheezes Cardiovascular exam: PRESENT: RRR. ABSENT: diastolic murmur, rubs, systolic murmur Pulses: PRESENT: normal dorsalis pedis pul GI/Abdominal exam: PRESENT: normal bowel sounds, soft. ABSENT: distended, guarding, mass, organolmegaly, rebound, tenderness Rectal exam: PRESENT: deferred Extremities exam: PRESENT: full ROM. ABSENT: calf tenderness, clubbing, pedal edema Neurological exam: PRESENT: alert, awake, oriented to person, oriented to place Results Laboratory Results: 06/22/19 05:10 06/22/19 05:10 06/22/19 06/22/19 05:10 05:10 WBC 5.3 RBC 3.28 L Hgb 9.5 L Hct 28.1 L MCV 86 MCH 28.9 MCHC 33.7 RDW 14.0 Plt Count 227 Seg Neutrophils % Not Reportable Sodium 135.7 L Potassium 4.5 Chloride 105 Carbon Dioxide 23 Anion Gap 8 BUN 22 H Creatinine 0.63 Est GFR ( Amer) > 60 Glucose 225 H Calcium 8.7 Magnesium 1.6 06/15/19 06/15/19 06/16/19 19:21 19:21 00:10 Creatine Kinase 63 59 CK-MB (CK-2) 2.54 Troponin I 0.017 06/16/19 00:10 Creatine Kinase CK-MB (CK-2) 2.10 Troponin I 0.018 Impressions: Chest X-Ray 06/15/19 19:07 IMPRESSION: Chronic lung changes with no acute cardiopulmonary finding. Head CT 06/15/19 19:07 IMPRESSION: No hemorrhage. No midline shift. Similar appearance of the white matter and old left frontal and right parietal infarcts. No evidence for acute large vessel infarction. Acute bilateral maxillary sinusitis. EVIDENCE OF ACUTE STROKE: NO. Head MRI 06/16/19 00:00 IMPRESSION: Acute nonhemorrhagic infarct in the right hemisphere EVIDENCE OF ACUTE STROKE: Yes Assessment and Plan - Diagnosis (1) Cerebrovascular accident, embolic Qualifiers: Precerebral and cerebral artery: unspecified cerebral artery Qualified Code(s): I63.40 - Cerebral infarction due to embolism of unspecified cerebral artery Is this a current diagnosis for this admission?: Yes Plan: Statin. Continue to optimize blood pressure control. Not on anticoagulation or antiplatelet therapy due to reasons mentioned above. (2) Atrial fibrillation, persistent Is this a current diagnosis for this admission?: Yes Plan: Rate controlled. Continue PO cardizem. (3) COPD (chronic obstructive pulmonary disease) Qualifiers: COPD type: unspecified COPD Qualified Code(s): J44.9 - Chronic obstructive pulmonary disease, unspecified Is this a current diagnosis for this admission?: Yes Plan: Not in exacerbation. (4) Coronary artery disease Is this a current diagnosis for this admission?: Yes Plan: Stable. Continue home meds. (5) Insulin dependent diabetes mellitus Is this a current diagnosis for this admission?: Yes Plan: Continue insulin regimen. - Time Time Spent with patient: 15-24 minutes
[2019-06-22] MEDS: TAMSULOSIN HCL 0.4 MG CAP.SR.24H PO SCH (18:13)
[2019-06-22] MEDS: UMECLIDINIUM BROMIDE 62.5 MCG/DOSE IH SCH (18:27)
[2019-06-22] MEDS ORDERED: INSULIN GLARGINE,HUM.REC.ANLOG 1,000 UNIT/10 ML VIAL (PYX) SUBCUT ONE (18:45)
[2019-06-22] MEDS: ATORVASTATIN CALCIUM 80 MG TABLET PEG SCH (21:56)
[2019-06-22] MEDS: MIRTAZAPINE 15 MG TABLET PEG SCH (21:56)
[2019-06-23] MEDS: PANTOPRAZOLE SODIUM 40 MG PACKET.DR GT SCH ×2 (05:33→17:29)
[2019-06-23] MEDS: LEVOTHYROXINE SODIUM 0.025 MG TABLET PEG SCH (05:33)
[2019-06-23] MEDS: DILTIAZEM HCL 60 MG TABLET PEG SCH ×3 (05:33→21:17)
[2019-06-23] MEDS: GABAPENTIN 100 MG CAPSULE PO SCH ×3 (05:33→21:16)
[2019-06-23] MEDS: LEVOTHYROXINE SODIUM 0.1 MG TABLET PEG SCH (05:33)
[2019-06-23] MEDS: INSULIN GLARGINE,HUM.REC.ANLOG 1,000 UNIT/10 ML VIAL SUBCUT SCH ×2 (06:09→18:07)
[2019-06-23] MEDS: INSULIN LISPRO 100 UNIT/ML 3 ML VIAL SUBCUT SCH ×4 (06:09→23:44)
[2019-06-23] MEDS: CEFTRIAXONE 1 GM/D5W RTU 1 GM/50 ML RTUPB IV SCH (09:27)
[2019-06-23] MEDS: VENLAFAXINE HCL 75 MG CAP.SR.24H PO SCH ×2 (09:28→21:16)
[2019-06-23] MEDS: ARIPIPRAZOLE 2 MG TABLET PEG SCH (09:29)
[2019-06-23] MEDS: DUTASTERIDE 0.5 MG CAPSULE PO SCH (09:29)
[2019-06-23] MEDS: LISINOPRIL 5 MG TABLET PO SCH (09:29)
[2019-06-23] MEDS: METOPROLOL TARTRATE 25 MG TABLET PEG SCH ×2 (09:30→21:17)
[2019-06-23] MEDS: DOCUSATE SODIUM 100 MG/10 ML UDC PEG SCH ×2 (09:30→17:30)
--- NOTE | 2019-06-23 15:15 | PDOC PROGRESS REPORT ---
Subjective Progress Note for:: 06/23/19 Subjective:: This is a 79 year old male past medical history of tobacco abuse, atrial fibrillation, CAD, hyperlipidemia, prior CVA, diabetes, colorectal cancer, depression, PTSD, anxiety who presented to the emergency room via EMS from home due to acute weakness of his left side. In the emergency room patient was found to have left-sided weakness and dysarthria with a CT scan of the head showing no intracranial hemorrhage. Not a tPA a candidate due to his known gastrointest inal arteriovenous malformation. He was found to be hyponatremic, hyperkalemic, and hypotensive and was transferred to ICU. Stayed in ICU for 2 days. An MRI showed multifocal embolic stroke. Patient CODE STATUS was changed to DNR/DNI as per daughter request. And if he declines be transitioned to comfort cares only otherwise patient will be transferred to outpatient rehab. Risk and benefits of anticoagulation and antiplatelet therapy was discussed with patient's daughter in the ICU and decision was made not to put him on any anticoagulation or antiplatelet given his history of duodenal AVM and GI bleed. Patient continues to await SNF/rehab placement. Otherwise no other acute event overnight. Upon encounter, he appears comfortable. He denies chest pain or shortness of breath. Continues to have left arm weakness. Reason For Visit: ACUTE CVA,HYPERKALEMIA Physical Exam Vital Signs: Temp Pulse Resp BP Pulse Ox 98.2 F 66 14 136/59 H 97 06/23/19 07:35 06/23/19 07:35 06/23/19 07:35 06/23/19 07:35 06/23/19 07:35 Intake & Output 06/22/19 06/23/19 06/24/19 06:59 06:59 06:59 Intake Total 2510 900 Output Total 3175 3150 Balance -665 -2250 Weight 126 lb 12.253 oz 125 lb 14.143 oz General appearance: PRESENT: no acute distress, well-developed, well-nourished Head exam: PRESENT: atraumatic, normocephalic Eye exam: PRESENT: conjunctiva pink, EOMI, PERRLA. ABSENT: scleral icterus Ear exam: PRESENT: normal external ear exam Mouth exam: PRESENT: moist, tongue midline Neck exam: PRESENT: carotid bruit Respiratory exam: PRESENT: clear to auscultation keith. ABSENT: rales, rhonchi, wheezes Cardiovascular exam: PRESENT: RRR. ABSENT: diastolic murmur, rubs, systolic murmur Pulses: PRESENT: normal dorsalis pedis pul GI/Abdominal exam: PRESENT: normal bowel sounds, soft. ABSENT: distended, gua rding, mass, organolmegaly, rebound, tenderness Rectal exam: PRESENT: deferred Extremities exam: PRESENT: full ROM. ABSENT: calf tenderness, clubbing, pedal edema Results Laboratory Results: 06/22/19 05:10 06/22/19 05:10 06/15/19 06/15/19 06/16/19 19:21 19:21 00:10 Creatine Kinase 63 59 CK-MB (CK-2) 2.54 Troponin I 0.017 06/16/19 00:10 Creatine Kinase CK-MB (CK-2) 2.10 Troponin I 0.018 Impressions: Chest X-Ray 06/15/19 19:07 IMPRESSION: Chronic lung changes with no acute cardiopulmonary finding. Head CT 06/15/19 19:07 IMPRESSION: No hemorrhage. No midline shift. Similar appearance of the white matter and old left frontal and right parietal infarcts. No evidence for acute large vessel infarction. Acute bilateral maxillary sinusitis. EVIDENCE OF ACUTE STROKE: NO. Head MRI 06/16/19 00:00 IMPRESSION: Acute nonhemorrhagic infarct in the right hemisphere EVIDENCE OF ACUTE STROKE: Yes Assessment and Plan - Diagnosis (1) Cerebrovascular accident, embolic Qualifiers: Precerebral and cerebral artery: unspecified cerebral artery Qualified Code(s): I63.40 - Cerebral infarction due to embolism of unspecified cerebral artery Is this a current diagnosis for this admission?: Yes Plan: Continue statin. Continue to optimize blood pressure control. Not on anticoagulation or antiplatelet therapy due to reasons mentioned above. (2) Atrial fibrillation, persistent Is this a current diagnosis for this admission?: Yes Plan: Rate controlled. Continue PO cardizem. (3) COPD (chronic obstructive pulmonary disease) Qualifiers: COPD type: unspecified COPD Qualified Code(s): J44.9 - Chronic obstructive pulmonary disease, unspecified Is this a current diagnosis for this admission?: Yes Plan: Not in exacerbation. (4) Coronary artery disease Is this a current diagnosis for this admission?: Yes Plan: Stable. Continue home meds. (5) Insulin dependent diabetes mellitus Is this a current diagnosis for this admission?: Yes Plan: Continue insulin regimen. - Time Time Spent with patient: 15-24 minutes
[2019-06-23] MEDS ORDERED: DIAZEPAM 2 MG TABLET PO PRN (16:54)
[2019-06-23] MEDS: TAMSULOSIN HCL 0.4 MG CAP.SR.24H PO SCH (17:29)
[2019-06-23] MEDS: UMECLIDINIUM BROMIDE 62.5 MCG/DOSE IH SCH (17:30)
[2019-06-23] MEDS: FLUTICASONE NASAL SPRAY 50 MCG/SPRY 120 SPRAY/16 GM NASL SCH (17:30)
[2019-06-23] MEDS: NORMAL SALINE 1000 ML 1,000 ML IV PRN (17:39)
[2019-06-23] MEDS: ATORVASTATIN CALCIUM 80 MG TABLET PEG SCH (21:16)
[2019-06-23] MEDS: MIRTAZAPINE 15 MG TABLET PEG SCH (21:16)
[2019-06-24] MEDS: DILTIAZEM HCL 60 MG TABLET PEG SCH ×2 (05:39→14:21)
[2019-06-24] MEDS: GABAPENTIN 100 MG CAPSULE PO SCH ×2 (05:40→14:21)
[2019-06-24] MEDS: PANTOPRAZOLE SODIUM 40 MG PACKET.DR GT SCH (05:40)
[2019-06-24] MEDS: LEVOTHYROXINE SODIUM 0.025 MG TABLET PEG SCH (05:40)
[2019-06-24] MEDS: LEVOTHYROXINE SODIUM 0.1 MG TABLET PEG SCH (05:40)
[2019-06-24] MEDS: INSULIN LISPRO 100 UNIT/ML 3 ML VIAL SUBCUT SCH ×2 (06:03→12:00)
[2019-06-24] MEDS: INSULIN GLARGINE,HUM.REC.ANLOG 1,000 UNIT/10 ML VIAL SUBCUT SCH (06:04)
[2019-06-24] MEDS: DUTASTERIDE 0.5 MG CAPSULE PO SCH (09:45)
[2019-06-24] MEDS: LISINOPRIL 5 MG TABLET PO SCH (09:45)
[2019-06-24] MEDS: METOPROLOL TARTRATE 25 MG TABLET PEG SCH (09:47)
[2019-06-24] MEDS: VENLAFAXINE HCL 75 MG CAP.SR.24H PO SCH (09:47)
[2019-06-24] MEDS: ARIPIPRAZOLE 2 MG TABLET PEG SCH (09:47)
[2019-06-24] MEDS: DOCUSATE SODIUM 100 MG/10 ML UDC PEG SCH (09:50)
[2019-06-24] MEDS: FLUTICASONE NASAL SPRAY 50 MCG/SPRY 120 SPRAY/16 GM NASL SCH (09:51)
[2019-06-24] MEDS: CEFTRIAXONE 1 GM/D5W RTU 1 GM/50 ML RTUPB IV SCH (09:52)
--- NOTE | 2019-06-24 13:44 | PDOC TRANSFER SUMMARY ---
Impression - Admit/DC Date/PCP Admission Date/Primary Care Provider: 06/15/19 23:20 NE CHINO NP Discharge Date: 06/24/19 - Discharge Diagnosis (1) Cerebrovascular accident, embolic Is this a current diagnosis for this admission?: Yes (2) Atrial fibrillation, persistent Is this a current diagnosis for this admission?: Yes (3) COPD (chronic obstructive pulmonary disease) Is this a current diagnosis for this admission?: Yes (4) Coronary artery disease Is this a current diagnosis for this admission?: Yes (5) Insulin dependent diabetes mellitus Is this a current diagnosis for this admission?: Yes - Additional Information Resuscitation Status: Full Code Referrals: NE CHINO NP [Primary Care Provider] - 06/28/19 1:00 pm Prescriptions: Insulin Glargine,Hum.rec.anlog [Lantus Insulin 100 Unit/1 ml 10 ml] 20 unit SUBCUT 0700,1900 #1 unit Home Medications: Aripiprazole [Abilify 2 mg Tablet] 2 mg PO QAM 06/16/19 Atorvastatin Calcium [Lipitor 40 mg Tablet] 40 mg PO QHS 06/16/19 Diazepam [Valium 2 mg Tablet] 2 mg PO Q12HP PRN 06/16/19 Diltiazem HCl [Diltiazem 24Hr ER] 180 mg PO DAILY 06/16/19 Dutasteride [Avodart Lf 0.5 mg Capsule] 0.5 mg PO DAILY 06/16/19 Insulin Detemir [Levemir] 17 units SQ BID 06/16/19 Levothyroxine Sodium [Synthroid 0.05 mg Tablet] 0.05 mg PO Q6AM 06/16/19 Lisinopril [Prinivil 5 mg Tablet] 5 mg PO QAM 06/16/19 Metoprolol Tartrate [Lopressor 25 mg Tablet] 12.5 mg PO Q12 06/16/19 Mirtazapine [Remeron] 30 mg PO QHS 06/16/19 Nitroglycerin 0.4 mg SL Q5MP PRN 06/16/19 Pantoprazole Sodium [Protonix [address] Tablet] 40 mg PO BIDACBS 06/16/19 Tamsulosin HCl [Flomax 0.4 mg Cap.sr] 0.4 mg PO PCSUPPER 06/16/19 Terazosin HCl [Hytrin] 5 mg PO QHS 06/16/19 Umeclidinium Proctor [Incruse 62.5 Mcg Ellipta 7 Dose/Dpi] 1 puff IH DAILY 06/16/19 Venlafaxine HCl [Venlafaxine HCl ER] 75 mg PO Q12 06/16/19 Insulin Glargine,Hum.rec.anlog [Lantus Insulin 100 Unit/1 ml 10 ml] 20 unit SUBCUT 0700,1900 #1 unit 06/23/19 History of Present Illiness History of Present Illness: Admitting hospitalist's H&P: JOHN MARIE is a 79 year old male who presented to the emergency room via EMS from home due to acute weakness of his left side. He and his daughter explained that he has had a prior CVA that affected the strength of his left side and his speech but a short time prior to admission his left-sided weakness dramatically increased and his difficulty with speech also increased dramatic dramatically. They deny other accompanying or associated signs and symptoms. They admit prior similar symptoms with his previous CVA. They have not identified any aggravating or ameliorating factors for his current increased left-sided weakness and decreased ability to speak. In the emergency room patient was found to have left-sided weakness and dysarthria with a CT scan of the head showing no intracranial hemorrhage. Patient was determined to not be a candidate for thrombolytic therapy due to his known gastrointestinal arteriovenous malformation which has become hemorrhagic with anticoagulation in the past, and his overall improvement in symptoms during his course of evaluation in the emergency room. Patient was subsequently admitted to the ICU for further evaluation and treatment. Hospital Course Hospital Course: This is a 79 year old male past medical history of tobacco abuse, atrial fibrillation, CAD, hyperlipidemia, prior CVA, diabetes, colorectal cancer, depression, PTSD, anxiety who presented to the emergency room via EMS from home due to acute weakness of his left side. In the emergency room patient was found to have left-sided weakness and dysarthria with a CT scan of the head showing no intracranial hemorrhage. Not a tPA a candidate due to his known gastrointestinal arteriovenous malformation. He was found to be hyponatremic, hyperkalemic, and hypotensive and was transferred to ICU. Stayed in ICU for 2 days. An MRI showed multifocal embolic stroke. Patient also was made a DNR/DNI. Transition to hospice/comfort measures was considered in the ICU but he showed some improvement hence was not made comfort care. Risk and benefits of anticoagulation and antiplatelet therapy was discussed with patient's daughter in the ICU and decision was made not to put him on any anticoagulation or antiplatelet given his history of duodenal AVM and GI bleed. Patient and daughter understands that he remains at a very high risk of getting another major CVA. He will be discharged to SNF with transition to hospice later if he develops acute issues or clinical deterioration. Physical Exam Vital Signs: Temp Pulse Resp BP Pulse Ox 98.1 F 77 17 147/61 H 97 06/24/19 07:38 06/24/19 07:38 06/24/19 07:38 06/24/19 07:38 06/24/19 07:38 Intake & Output 06/23/19 06/24/19 06/25/19 06:59 06:59 06:59 Intake Total 900 932 Output Total 3150 1700 Balance -2250 -768 Weight 125 lb 14.143 oz 125 lb 7.088 oz General appearance: PRESENT: no acute distress, well-developed, well-nourished Head exam: PRESENT: atraumatic, normocephalic Eye exam: PRESENT: conjunctiva pink, EOMI, PERRLA. ABSENT: scleral icterus Ear exam: PRESENT: normal external ear exam Mouth exam: PRESENT: moist, tongue midline Neck exam: ABSENT: carotid bruit, JVD, lymphadenopathy, thyromegaly Respiratory exam: PRESENT: clear to auscultation keith. ABSENT: rales, rhonchi, wheezes Cardiovascular exam: PRESENT: RRR. ABSENT: diastolic murmur, rubs, systolic murmur Pulses: PRESENT: normal dorsalis pedis pul GI/Abdominal exam: PRESENT: normal bowel sounds, soft. ABSENT: distended, guarding, mass, organolmegaly, rebound, tenderness Rectal exam: PRESENT: deferred Extremities exam: PRESENT: full ROM. ABSENT: calf tenderness, clubbing, pedal edema Neurological exam: PRESENT: alert, awake, oriented to person, motor sensory deficit - L arm weakness 1/5 Results Laboratory Results: WBC 5.3 10^3/uL (4.0-10.5) 06/22/19 05:10 RBC 3.28 10^6/uL (4.35-5.55) L 06/22/19 05:10 Hgb 9.5 g/dL (13.5-17.0) L 06/22/19 05:10 Hct 28.1 % (37.9-51.0) L 06/22/19 05:10 MCV 86 fl (80-97) 06/22/19 05:10 MCH 28.9 pg (27.0-33.4) 06/22/19 05:10 MCHC 33.7 g/dL (32.0-36.0) 06/22/19 05:10 RDW 14.0 % (11.5-14.0) 06/22/19 05:10 Plt Count 227 10^3/uL (150-450) 06/22/19 05:10 Lymph % (Auto) Not Reportable 06/22/19 05:10 [place] % (Auto) Not Reportable 06/22/19 05:10 Eos % (Auto) Not Reportable 06/22/19 05:10 Baso % (Auto) Not Reportable 06/22/19 05:10 Absolute Neuts (auto) Not Reportable 06/22/19 05:10 Absolute Lymphs (auto) Not Reportable 06/22/19 05:10 Absolute Monos (auto) Not Reportable 06/22/19 05:10 Absolute Eos (auto) Not Reportable 06/22/19 05:10 Absolute Basos (auto) Not Reportable 06/22/19 05:10 Total Counted 100 06/22/19 05:10 Seg Neutrophils % Not Reportable 06/22/19 05:10 Seg Neuts % (Manual) 59 % (42-78) 06/22/19 05:10 Lymphocytes % (Manual) 23 % (13-45) 06/22/19 05:10 Monocytes % (Manual) 13 % (3-13) 06/22/19 05:10 Eosinophils % (Manual) 4 % (0-6) 06/22/19 05:10 Basophils % (Manual) 1 % (0-2) 06/22/19 05:10 Abs Neuts (Manual) 3.1 10^3/uL (1.7-8.2) 06/22/19 05:10 Abs Lymphs (Manual) 1.2 10^3/uL (0.5-4.7) 06/22/19 05:10 Abs Monocytes (Manual) 0.7 10^3/uL (0.1-1.4) 06/22/19 05:10 Absolute Eos (Manual) 0.2 10^3/uL (0.0-0.6) 06/22/19 05:10 Abs Basophils (Manual) 0.1 10^3/uL (0.0-0.2) 06/22/19 05:10 Toxic Granulation SLIGHT 06/22/19 05:10 Platelet Comment ADEQUATE 06/22/19 05:10 Poikilocytosis SLIGHT 06/22/19 05:10 Anisocytosis SLIGHT 06/22/19 05:10 Ovalocytes SLIGHT 06/22/19 05:10 PT 13.0 SEC (11.4-15.4) 06/15/19 19:21 INR 0.98 06/15/19 19:21 APTT 27.3 SEC (23.5-35.8) 06/15/19 19:21 Sodium 135.7 mmol/L (137-145) L 06/22/19 05:10 Potassium 4.5 mmol/L (3.6-5.0) 06/22/19 05:10 Chloride 105 mmol/L (98-107) 06/22/19 05:10 Carbon Dioxide 23 mmol/L (22-30) 06/22/19 05:10 Anion Gap 8 (5-19) 06/22/19 05:10 BUN 22 mg/dL (7-20) H 06/22/19 05:10 Creatinine 0.63 mg/dL (0.52-1.25) 06/22/19 05:10 Est GFR ( Amer) > 60 (>60) 06/22/19 05:10 Est GFR (Non-Af Amer) Cancelled 06/16/19 10:20 Est GFR (MDRD) Non-Af > 60 (>60) 06/22/19 05:10 Glucose 225 mg/dL (75-110) H 06/22/19 05:10 POC Glucose 295 mg/dL (70-110) H 06/24/19 05:55 Calcium 8.7 mg/dL (8.4-10.2) 06/22/19 05:10 Phosphorus 3.0 mg/dL (2.5-4.5) 06/17/19 04:00 Magnesium 1.6 mg/dL (1.6-2.3) 06/22/19 05:10 Total Bilirubin 0.2 mg/dL (0.2-1.3) 06/18/19 04:08 Direct Bilirubin 0.1 mg/dL (0.0-0.4) 06/18/19 04:08 Neonat Total Bilirubin Not Reportable 06/18/19 04:08 Neonat Direct Bilirubin Not Reportable 06/18/19 04:08 Neonat Indirect Bili Not Reportable 06/18/19 04:08 AST 18 U/L (17-59) 06/18/19 04:08 ALT 23 U/L (<50) 06/18/19 04:08 Alkaline Phosphatase 109 U/L (38-126) 06/18/19 04:08 Creatine Kinase 59 U/L (55-170) 06/16/19 00:10 CK-MB (CK-2) 2.10 ng/mL (<4.55) 06/16/19 00:10 Troponin I 0.018 ng/mL 06/16/19 00:10 Total Protein 6.8 g/dL (6.3-8.2) 06/18/19 04:08 Albumin 3.8 g/dL (3.5-5.0) 06/18/19 04:08 EGFR Cancelled 06/16/19 10:20 TSH 5.98 uIU/mL (0.47-4.68) H 06/16/19 04:16 Urine Color YELLOW 06/15/19 23:36 Urine Appearance SLIGHTLY-CLOUDY 06/15/19 23:36 Urine pH 5.0 (5.0-9.0) 06/15/19 23:36 Ur Specific Jay Em 1.006 06/15/19 23:36 Urine Protein NEGATIVE mg/dL (NEGATIVE) 06/15/19 23:36 Urine Glucose (UA) >=500 mg/dL (NEGATIVE) H 06/15/19 23:36 Urine Ketones NEGATIVE mg/dL (NEGATIVE) 06/15/19 23:36 Urine Blood NEGATIVE (NEGATIVE) 06/15/19 23:36 Urine Nitrite NEGATIVE (NEGATIVE) 06/15/19 23:36 Urine Bilirubin NEGATIVE (NEGATIVE) 06/15/19 23:36 Urine Urobilinogen NEGATIVE mg/dL (<2.0) 06/15/19 23:36 Ur Leukocyte Esterase LARGE (NEGATIVE) H 06/15/19 23:36 Urine WBC (Auto) 29 /HPF 06/15/19 23:36 Urine RBC (Auto) 2 /HPF 06/15/19 23:36 U Hyaline Cast (Auto) 3 /LPF 06/15/19 23:36 Urine WBC Clumps FEW /HPF 06/15/19 23:36 Amorphous Sediment Auto TRACE /HPF 06/15/19 23:36 Urine Ascorbic Acid 20 (NEGATIVE) H 06/15/19 23:36 Blood Type O POSITIVE 06/15/19 19:21 Antibody Screen POSITIVE 06/15/19 19:21 Antibody Identification Anti-C 06/15/19 19:21 Antigen Identification C Antigen - NEGATIVE 06/15/19 19:21 06/15/19 06/16/19 19:21 00:10 CK-MB (CK-2) 2.54 2.10 Troponin I 0.017 0.018 Impressions: Chest X-Ray 06/15/19 19:07 IMPRESSION: Chronic lung changes with no acute cardiopulmonary finding. Head CT 06/15/19 19:07 IMPRESSION: No hemorrhage. No midline shift. Similar appearance of the white matter and old left frontal and right parietal infarcts. No evidence for acute large vessel infarction. Acute bilateral maxillary sinusitis. EVIDENCE OF ACUTE STROKE: NO. Head MRI 06/16/19 00:00 IMPRESSION: Acute nonhemorrhagic infarct in the right hemisphere EVIDENCE OF ACUTE STROKE: Yes Stroke Is this a Stroke Patient?: Yes Acute Heart Failure - Is this a Heart Failure Patient?: No
[2019-06-24 14:52] VITALS: BP 117/47
[2019-06-24 15:17] LABS: APPEARANCE,URINE TURBID; BILIRUBIN,URINE NEGATIVE (NEGATIVE); COLOR,URINE YELLOW; GLUCOSE, URINE >=500 mg/dL (NEGATIVE); KETONES,URINE NEGATIVE (NEGATIVE); LEUKOCYTE ESTERASE,URINE LARGE (NEGATIVE); NITRITE,URINE NEGATIVE (NEGATIVE); PROTEIN,URINE 100 mg/dL (NEGATIVE); URINE SPECIFIC GRAVITY 1.005; UROBILINOGEN,URINE NEGATIVE mg/dL (<2.0)
== END 2019-06-24 15:37 | DRG 65 ==
LOC: ER 19:05 → EH 23:20 → ICU 06-16 01:03 → 3W 06-18 06:35
PROVIDERS: ADMIT Internal Medicine Critical Care Medicine; ATTEND Internal Medicine Critical Care Medicine
DX: I63.40 Cerebral infarction due to embolism of unspecified cerebral artery (principal); I48.19 Other persistent atrial fibrillation; I69.854 Hemiplegia and hemiparesis following other cerebrovascular disease affecting left non-dominant side; N30.00 Acute cystitis without hematuria; E87.1 Hypo-osmolality and hyponatremia; E87.5 Hyperkalemia; Z66 Do not resuscitate; I25.10 Atherosclerotic heart disease of native coronary artery without angina pectoris; E11.51 Type 2 diabetes mellitus with diabetic peripheral angiopathy without gangrene; J44.9 Chronic obstructive pulmonary disease, unspecified; E03.9 Hypothyroidism, unspecified; F32.9 Major depressive disorder, single episode, unspecified; F41.1 Generalized anxiety disorder; F43.10 Post-traumatic stress disorder, unspecified; R29.810 Facial weakness; R13.14 Dysphagia, pharyngoesophageal phase; F17.200 Nicotine dependence, unspecified, uncomplicated; K31.819 Angiodysplasia of stomach and duodenum without bleeding; N40.0 Benign prostatic hyperplasia without lower urinary tract symptoms; Z79.4 Long term (current) use of insulin; Z79.899 Other long term (current) drug therapy; Z85.038 Personal history of other malignant neoplasm of large intestine; Z95.5 Presence of coronary angioplasty implant and graft; Z88.6 Allergy status to analgesic agent; Z88.8 Allergy status to other drugs, medicaments and biological substances; Z93.2 Ileostomy status; Z75.1 Person awaiting admission to adequate facility elsewhere
CPT/HCPCS: 36415; 70450; 70551; 71045; 80048; 80053; 80069; 81001; 82550; 82553; 82962; 83735; 84100; 84443; 84484; 85025; 85027; 85610; 85730; 86850; 86870; 86900; 86901; 86902; 87086; 93005; 93010; 96374; 96375; 99291; A4315; C9113; J0610; J0696; J1644; J1815; J3360; J3475; J3490; J7030